=== PATIENT | female | born 1960 | race Caucasian/White ===

== ENCOUNTER 2017-09-13 18:01 | Emergency (ER) | payer MEDICARE ==
[2017-09-13] MEDS ORDERED: Phenergan 25 MG INJ IM ONE (18:23)
[2017-09-13] MEDS ORDERED: Hydromorphone 1 mg/ml Ampule IM ONE (18:23)
--- NOTE | 2017-09-13 18:32 | ERPHSYRPT ---
- History of Present Illness Time Seen by Provider: 09/13/17 18:14 Source: patient Exam Limitations: clinical condition Patient Subjective Stated Complaint: fell at 1100 today landing on left knee and left hip. is scheduled for left hip replacement next at [place]. pain and swelling to left knee. Triage Nursing Assessment: patient unable to bear weight on left knee. knee slightly swollen with severe tenderness. good pedal pulse. Physician History: PATIENT SCHEDULED FOR LEFT HIP REPLACEMENT NEXT WEEK FELL OVER HER DOG SUSTAINED INJURY TO HER LEFT KNEE AT 1100 TODAY,HAS PAIN WITH SWELLING, UNABLE TO BEAR WEIGHT ONTO LEFT LEG. DENIES ASSOCIATED HEAD, NECK, BACK OR HIP INJURY. Occurred: this morning Reason for Fall: tripped Injuries/Pain Location: lower extremity Loss of Consciousness: no loss of consciousness Quality: sharpness Severity of Pain-Max: moderate Severity of Pain-Current: moderate Modifying Factors: Improves With: movement Associated Symptoms (Fall): other (UNABLE TO BEAR WEIGHT) Allergies/Adverse Reactions: celecoxib [From Celebrex] Allergy (Verified 09/13/17 18:17) pregabalin [From Lyrica] Allergy (Verified 09/13/17 18:17) acetaminophen [From Vicodin] Adverse Reaction (Verified 09/13/17 18:17) hydrocodone [From Vicodin] Adverse Reaction (Verified 09/13/17 18:17) Home Medications: AMITRIPTYLINE HCL 50 mg Tab [AMITRIPTYLINE HCL 50 mg Tablet] 75 mg PO HS [History] Atorvastatin Calcium [Lipitor] 40 mg PO DAILY 09/13/17 [History] Citalopram Hydrobromide [Citalopram HBr] 40 mg PO DAILY 09/13/17 [History] Eluxadoline [Viberzi] 75 mg PO BID 09/13/17 [History] Ergocalciferol (Vitamin D2) [Vitamin D] 50,000 mg PO UD 09/13/17 [History] Folic Acid 1 mg [Folate 1 mg] 1 mg PO DAILY 09/13/17 [History] Furosemide 20 mg [Lasix 20 mg] 20 mg PO DAILY 09/13/17 [History] Gabapentin 100 mg PO TID 09/13/17 [History] Hydroxychloroquine Sulfate [Plaquenil] 200 mg PO BID 09/13/17 [History] Mirtazapine [Remeron] 15 mg PO HS 09/13/17 [History] Omeprazole 40 mg PO BID 09/13/17 [History] Trazodone HCl 50 mg [Desyrel 50 mg] 50 mg PO HS 09/13/17 [History] Hx Tetanus, Diphtheria Vaccination/Date Given: No Hx Influenza Vaccination/Date Given: Yes Hx Pneumococcal Vaccination/Date Given: No - Review of Systems Musculoskeletal: Injury, Joint Pain, Joint Swelling - Past Medical History Pertinent Past Medical History: Yes Neurological History: Peripheral Neuropathy Musculoskeletal History: Rheumatoid Arthritis GI Medical History: GERD, Irritable Bowel Psycho-Social History: Depression Female Reproductive Disorders: Abnormal Uterine Bleeding - Past Surgical History Past Surgical History: Yes Gastrointestinal: Appendectomy, Cholecystectomy Musculoskeletal: Orthopedic Surgery Female Surgical History: Hysterectomy Other Surgical History: sinus - Social History Smoking Status: Never smoker Exposure to second hand smoke: No Drug Use: none Patient Lives Alone: No - Nursing Vital Signs Nursing Vital Signs: Initial Vital Signs Temperature 97.9 F 09/13/17 18:03 Pulse Rate 84 09/13/17 18:03 Respiratory Rate 20 09/13/17 18:03 Blood Pressure 131/71 09/13/17 18:03 O2 Sat by Pulse Oximetry 98 09/13/17 18:03 Pain Scale Pain Intensity 8 - Physical Exam General Appearance: mild distress (, ) Extremity Exam: joint swelling (PATELLA MIDLINE WITH SUPRAPATELLA EFFUSION, TENDERNESS, SWELLING MEDIAL FEMORAL CONDYLE, NO JOINT LAXITY UPON VARUS/ VALGUS STRESS, UNABLE TO TEST ANTERIOR DRAW SIGN, POPLITEAL PULSE 2+), limited range of motion SpO2 Interpretation: normal SpO2: 98 Oxygen Delivery: Room Air - Radiology Exams Left Knee X-ray Interpretation: Interpreted by me (SUPRAPATELLA EFFUSION, NO FRACTURE OR DISLOCATION) Left Hip X-ray Interpretation: Interpreted by me, Negative, No Fracture (MODERATE DEGENERATIVE ARTHRITIS) Ordered Tests: Active Orders 24 hr Category Date Time Status HIP UNI (2V) INCL PEL IF DONE Stat Exams 09/13/17 18:32 Taken KNEE (3 VIEWS) Stat Exams 09/13/17 18:25 Taken Medication Summary Discontinued Medications Generic Name Dose Route Start Last Admin Trade Name Freq PRN Reason Stop Dose Admin Hydromorphone HCl 1 mg 09/13/17 18:23 09/13/17 19:01 Hydromorphone 1 Mg/Ml Ampule IM 09/13/17 18:24 1 mg STAT ONE Administration Hydromorphone HCl Confirm 09/13/17 18:40 Hydromorphone 1 Mg/Ml Ampule Administered 09/13/17 18:41 Dose 1 mg .ROUTE .STK-MED ONE Promethazine HCl 12.5 mg 09/13/17 18:23 09/13/17 19:02 Phenergan 25 Mg Inj IM 09/13/17 18:24 12.5 mg STAT ONE Administration Promethazine HCl Confirm 09/13/17 18:39 Phenergan 25 Mg Inj Administered 09/13/17 18:40 Dose 25 mg .ROUTE .STK-MED ONE - Progress Progress: improved Progress Note: 09/13/17 20:12 ADMINISTERED DILAUDID 1MG/PHENERGAN 12.5MG IM, UNABLE TO APPLY KNEE IMMOBILIZER DUE TO SMALL SIZE, 6'' LINDA BANDAGE INSTEAD, HAS CRUTCHES AT HOME. Counseled pt/family regarding: diagnosis, need for follow-up, rad results - Departure Time of Disposition: 20:18 Departure Disposition: Home Clinical Impression: CONTUSION/STRAIN LEFT KNEE Condition: Stable Critical Care Time: No Referrals: NIRANJAN MARTINEZ [Primary Care Provider] - Additional Instructions: AMBULATE USING WALKER AT HOME NONWEIGHT BEARING LEFT LEG. NORCO 10/325 EVERY 4 HOURS FOR PAIN NEEDED. APPLY ICE ABOVE AND BELOW KNEE EVERY 4 HOURS, 30 MINUTES FOR 48 HOURS. CONSULT YOUR ORTHOPEDIC SURGEON FOR FOLLOWUP. Prescriptions: Codeine Phosphate/APAP #3 [Tylenol #3 Tablet] 1 tab PO Q4HPRN PRN #15 tablet PRN Reason: Pain
[2017-09-13] MEDS ORDERED: Phenergan 25 MG INJ ONE (18:39)
[2017-09-13] MEDS ORDERED: Hydromorphone 1 mg/ml Ampule ONE (18:40)
[2017-09-13 20:25] VITALS: BP 133/85; PULSE 88; O2SAT 96
--- NOTE | 2017-09-14 08:47 | XRAY ---
Indication: Pain following fall. Comparison: None AP pelvis and 2 views of the left hip demonstrates osteopenia, partially visualized lower lumbar fusion surgery including left-sided spinal stimulator device, mild degenerative changes of the left hip/pubic symphysis. No other bony, articular, or soft tissue abnormalities.
--- NOTE | 2017-09-14 08:49 | XRAY ---
Indication: Pain following fall. Comparison: None 3 views of the left knee demonstrate osteopenia, moderate tricompartmental degenerative changes, and small nonspecific suprapatellar effusion. On the lateral view there is a vague 1.7 x 2.2 cm suprapatellar amorphic calcification presumed chronic either degenerative or old injury/inflammation. No other bony, articular, or soft tissue abnormalities.
== END 2017-09-13 20:25 | disposition home or self-care (01) ==
LOC: ED 18:01
DX: S80.02XA Contusion of left knee, initial encounter (principal); S83.92XA Sprain of unspecified site of left knee, initial encounter; W01.0XXA Fall on same level from slipping, tripping and stumbling without subsequent striking against object, initial encounter; Z79.899 Other long term (current) drug therapy; Z79.84 Long term (current) use of oral hypoglycemic drugs
CPT/HCPCS: 73502; 73562; 96372; 99283; J1170; J2550

== ENCOUNTER 2017-12-10 15:47 | Emergency (ER) | payer MEDICARE ==
[2017-12-10] MEDS ORDERED: Marcaine 0.5% SDV 10 ML IJ ONE (16:05)
[2017-12-10] MEDS ORDERED: Adacel Vial IM ONE ×2 (16:05→17:18)
[2017-12-10] MEDS ORDERED: Augmentin 875-125 Tablet PO ONE (16:06)
[2017-12-10] MEDS ORDERED: Sodium Chloride 0.9% 1000 ML 1,000 ML IV STA (16:07)
[2017-12-10] MEDS ORDERED: Marcaine 0.5% SDV 10 ML ONE (16:09)
--- NOTE | 2017-12-10 16:25 | ERPHSYRPT ---
- History of Present Illness Time Seen by Provider: 12/10/17 15:52 Source: patient Patient Subjective Stated Complaint: pt for a dog bite, pt was dog fight and a dog turned on pt and got bit to left hand and right hand . was bit by pit bull Triage Nursing Assessment: pt alert, nervous, resp labored, skin w/d/p. has 3cm laceration to left hand and punture brown to right hand, no bleedind at present time. Physician History: CC: dog bite Hx: 57 y/o patient of Dr Martinez. 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 She has punctures to the right hand. She has a gash to the left hand. No other injuries. No N/T/W. Unsure of last tetanus vaccine. The dog is reported to have had full rabies vaccines and to be in a good state of health. Occurred: just prior to arrival Extremities Pain Location: hand: bilateral Allergies/Adverse Reactions: celecoxib [From Celebrex] Allergy (Verified 12/10/17 16:01) pregabalin [From Lyrica] Allergy (Verified 12/10/17 16:01) acetaminophen [From Vicodin] Adverse Reaction (Verified 12/10/17 16:01) hydrocodone [From Vicodin] Adverse Reaction (Verified 12/10/17 16:01) Home Medications: AMITRIPTYLINE HCL 50 mg Tab [AMITRIPTYLINE HCL 50 mg Tablet] 75 mg PO HS [History] Atorvastatin Calcium [Lipitor] 40 mg PO DAILY 09/13/17 [History] Citalopram Hydrobromide [Citalopram HBr] 40 mg PO DAILY 09/13/17 [History] Eluxadoline [Viberzi] 75 mg PO BID 09/13/17 [History] Ergocalciferol (Vitamin D2) [Vitamin D] 50,000 mg PO UD 09/13/17 [History] Folic Acid 1 mg [Folate 1 mg] 1 mg PO DAILY 09/13/17 [History] Furosemide 20 mg [Lasix 20 mg] 20 mg PO DAILY 09/13/17 [History] Gabapentin 100 mg PO TID 09/13/17 [History] Hydroxychloroquine Sulfate [Plaquenil] 200 mg PO BID 09/13/17 [History] Mirtazapine [Remeron] 15 mg PO HS 09/13/17 [History] Omeprazole 40 mg PO BID 09/13/17 [History] Trazodone HCl 50 mg [Desyrel 50 mg] 50 mg PO HS 09/13/17 [History] Hx Tetanus, Diphtheria Vaccination/Date Given: No Hx Influenza Vaccination/Date Given: Yes Hx Pneumococcal Vaccination/Date Given: No Immunizations Up to Date: Yes - Review of Systems Constitutional: No Fever, No Chills Musculoskeletal: Injury Neurological: No Focal Weakness, No Parasthesia Psychological: Anxiety All Other Systems: Reviewed and Negative - Past Medical History Pertinent Past Medical History: Yes Neurological History: Migraines, Peripheral Neuropathy Cardiac History: Hypertension Respiratory History: No Pertinent History Endocrine Medical History: No Pertinent History Musculoskeletal History: Osteoarthritis, Osteoporosis, Rheumatoid Arthritis GI Medical History: GERD, Irritable Bowel Psycho-Social History: Depression Female Reproductive Disorders: Abnormal Uterine Bleeding - Past Surgical History Past Surgical History: Yes Gastrointestinal: Appendectomy, Cholecystectomy Musculoskeletal: Orthopedic Surgery Female Surgical History: Hysterectomy Other Surgical History: sinus,knee surg, back surg - Social History Smoking Status: Never smoker Exposure to second hand smoke: No Drug Use: none Patient Lives Alone: No - Female History Hx Last Menstrual Period: post - Nursing Vital Signs Nursing Vital Signs: Initial Vital Signs Temperature 99.4 F 12/10/17 15:53 Pulse Rate 118 H 12/10/17 15:53 Respiratory Rate 26 H 12/10/17 15:53 Blood Pressure 151/108 12/10/17 15:53 O2 Sat by Pulse Oximetry 97 12/10/17 15:53 Pain Scale Pain Intensity 10 - Physical Exam General Appearance: alert, other (upset on arrival) Eyes, Ears, Nose, Throat Exam: normal ENT inspection, moist mucous membranes Neck Exam: normal inspection, non-tender, supple Cardiovascular/Respiratory Exam: normal breath sounds, regular rate/rhythm Abdominal Exam: non-tender, soft Neuro/Tendon Exam: normal sensation (2 point intact left thumb), normal motor functions Mental Status Exam: alert, oriented x 3, cooperative Skin Exam: warm, dry, other (small punctures scattered right hand; large gash left thenar area. ROM intact. NO FB noted. Sensation and cap refill intact.) SpO2 Interpretation: normal SpO2: 97 Oxygen Delivery: Room Air Procedures - Laceration/Wound Repair left thenar hand Wound Location: Left, hand Wound Length (cm): 4 Wound's Depth, Shape: stellate, into subcut Wound Explored: moderately contaminated (dog hair) Irrigated: Yes (copious NS under pressure) Hibiclens Prep: Yes Anesthesia: local, 1% Lidocaine, marcaine 0.5 Volume Anesthetic (ccs): 5 Wound Repaired With: sutures Suture Size/Type: 4-0, prolene Number of Sutures: 6 Sterile Dressing Applied?: Yes - Course Nursing assessment & vital signs reviewed: Yes - Radiology Exams bilateral hand X-ray Interpretation: Teleradiologist Report, Negative Ordered Tests: Active Orders 24 hr Category Date Time Status Prepare for Sutures STAT Care 12/10/17 16:05 Active Sutures STAT Care 12/10/17 16:06 Active Wound Care STAT Care 12/10/17 16:05 Active HAND (MINIMUM 3 VIEWS) Stat Exams 12/10/17 16:06 Completed HAND (MINIMUM 3 VIEWS) Stat Exams 12/10/17 16:25 Completed Medication Summary Discontinued Medications Generic Name Dose Route Start Last Admin Trade Name Freq PRN Reason Stop Dose Admin Amoxicillin/Clavulanate Potassium 875 mg 12/10/17 16:06 Augmentin 875-125 Tablet PO 12/10/17 16:07 STAT ONE Bupivacaine HCl 5 ml 12/10/17 16:05 Marcaine 0.5% Sdv 10 Ml IJ 12/10/17 16:06 STAT ONE Bupivacaine HCl Confirm 12/10/17 16:09 Marcaine 0.5% Sdv 10 Ml Administered 12/10/17 16:10 Dose 10 ml .ROUTE .STK-MED ONE Diphtheria/Tetanus/Acell Pertussis 0.5 ml 12/10/17 16:05 Adacel Vial IM 12/10/17 16:06 .ONCE ONE Sodium Chloride 1,000 mls @ 999 mls/hr 12/10/17 16:07 Sodium Chloride 0.9% 1000 Ml IV 12/10/17 17:07 .Q1H1M STA Sodium Chloride Confirm 12/10/17 16:26 Sodium Chloride 0.9% 1000 Ml Administered 12/10/17 16:27 Dose 1,000 mls @ ud .ROUTE .STK-MED ONE Lidocaine HCl Confirm 12/10/17 16:59 Xylocaine 1% Hcl 20 Ml Mdv Administered 12/10/17 17:00 Dose 5 ml .ROUTE .STK-MED ONE - Progress Progress Note: 12/10/17 17:10 Discussed risk of infection associated with dog bite. The left thenar laceration needed repair and she understands. Copious irrigation used. Augmentin given. Counseled pt/family regarding: diagnosis, need for follow-up, rad results - Departure Time of Disposition: 17:11 Departure Disposition: Home Clinical Impression: dog bite both hands, Laceration of left hand Condition: Stable Critical Care Time: No Referrals: NIRANJAN MARTINEZ [Primary Care Provider] - Instructions: Animal Bites (DC) Additional Instructions: LACERATION CARE 1. Do not use peroxide, merthiolate, alcohol, or betadine. 2. Keep wound clean and dry. 3. Change dressing if it becomes wet or soiled. 4. If you must work, wear protective covering. 5. You may return to the emergency department or see your family physician for suture removal. 6. See your family physician or return to the emergency department for any of the following signs or symptoms: A. Redness B. Swelling C. Discolored drainage D. Red streaks E. Elevated temperature F. Other signs of infection Dog should be quarantined for 10 days. Ibuprofen as directed for discomfort. Suture removal in 10 days. Report any sign of infection right away. Prescriptions: Amox Tr/Potass Clav. 875 mg [Augmentin 875-125 Tablet] 875 mg PO BID #14 tablet
[2017-12-10] MEDS ORDERED: Sodium Chloride 0.9% 1000 ML 1,000 ML ONE (16:26)
--- NOTE | 2017-12-10 16:31 | XRAY ---
Indication: Dog bite/laceration. Comparison: July 26, 2017. 3 views of the right hand demonstrate stable mild degenerative changes of all IP joints and moderate degenerative changes of the first metacarpal multangular articulation. No new/acute bony, articular, or soft tissue abnormalities.
--- NOTE | 2017-12-10 16:33 | XRAY ---
Indication: Dog bite/laceration. Comparison: July 26, 2017. 3 views of the left hand demonstrates new thenar eminence soft tissue swelling/laceration with stable mild degenerative changes of all IP joints and moderate degenerative changes of the first metacarpal multangular articulation. No other bony, articular, or soft tissue abnormalities.
[2017-12-10] MEDS ORDERED: XYLOCAINE 1% HCL 20 ML MDV ONE (16:59)
[2017-12-10] MEDS ORDERED: Augmentin 875-125 Tablet ONE (17:17)
[2017-12-10 17:54] VITALS: BP 150/80; PULSE 80; O2SAT 98
== END 2017-12-10 17:54 | disposition home or self-care (01) ==
LOC: ED 15:47
PROC: 0HQGXZZ Repair Left Hand Skin, External Approach (ICD-10-PCS; principal; 2017-12-10)
DX: S61.452A Open bite of left hand, initial encounter (principal); S61.412A Laceration without foreign body of left hand, initial encounter; S61.451A Open bite of right hand, initial encounter; W54.0XXA Bitten by dog, initial encounter
CPT/HCPCS: 12002; 73130; 90471; 90715; 96360; 99283; 99284; A9270-GY

== ENCOUNTER 2019-05-04 10:21 | Observation (INO) | payer MEDICARE ==
[2019-05-04] MEDS ORDERED: Sodium Chloride 0.9% 1000 ML 1,000 ML IV STA (11:22)
[2019-05-04] MEDS ORDERED: Zofran 4 MG/2 ML VIAL IV ONE (11:22)
[2019-05-04] MEDS ORDERED: DILAUDID 2 MG INJECTION IV ONE (11:25)
--- NOTE | 2019-05-04 11:26 | ERPHSYRPT ---
- History of Present Illness Time Seen by Provider: 05/04/19 11:10 Historian: patient Exam Limitations: clinical condition Patient Subjective Stated Complaint: pt here for n/v/d for 3 days. and weakness , no fever, she has not eat today. she was able to take meds today, Triage Nursing Assessment: pt alert, resp easy, skin w/d/p. walked to room. abd soft, no edema noted. Physician History: PATIENT WITH A HISTORY OF CHRONIC DIARRHEA, COMPLAINS OF FREQUENT EPISODES OF EMESIS AND PROFUSE DIARRHEA X 3 DAYS ASSOCIATED WITH WEAKNESS AND CRAMPY ABDOMINAL PAINS. DENIES FEVER, CHILLS URINARY SYMPTOMS. Timing/Duration: day(s) Activities at Onset: none Quality: cramping Abdominal Pain Onset Location: generalized abdomen Pain Radiation: no radiation Severity of Pain-Max: moderate Severity of Pain-Current: moderate Modifying Factors: Improves With: vomiting Associated Symptoms: nausea, vomiting, weakness Previous symptoms: other (HISTORY OF CHRONIC DIARRHEA) Allergies/Adverse Reactions: celecoxib [From Celebrex] Allergy (Verified 05/04/19 10:54) pregabalin [From Lyrica] Allergy (Verified 05/04/19 10:54) vancomycin Allergy (Verified 05/04/19 10:54) acetaminophen [From Vicodin] Adverse Reaction (Verified 05/04/19 10:54) hydrocodone [From Vicodin] Adverse Reaction (Verified 05/04/19 10:54) Home Medications: Atorvastatin Calcium [Lipitor] 40 mg PO DAILY 09/13/17 [History] Eluxadoline [Viberzi] 75 mg PO BID 09/13/17 [History] Ergocalciferol (Vitamin D2) [Vitamin D] 50,000 mg PO UD 09/13/17 [History] Folic Acid 1 mg [Folate 1 mg] 1 mg PO DAILY 09/13/17 [History] Furosemide 20 mg [Lasix 20 mg] 20 mg PO DAILY 09/13/17 [History] Gabapentin 600 mg PO TID 09/13/17 [History] Hydroxychloroquine Sulfate [Plaquenil] 200 mg PO BID 09/13/17 [History] Mirtazapine [Remeron] 15 mg PO HS 09/13/17 [History] Trazodone HCl 50 mg [Desyrel 50 mg] 50 mg PO HS 09/13/17 [History] Alprazolam [Xanax] 0.5 mg DAILY 05/04/19 [History] Hx Tetanus, Diphtheria Vaccination/Date Given: No Hx Influenza Vaccination/Date Given: Yes Hx Pneumococcal Vaccination/Date Given: No Immunizations Up to Date: Yes - Past Medical History Pertinent Past Medical History: Yes Neurological History: Migraines, Peripheral Neuropathy Cardiac History: High Cholesterol, Hypertension Respiratory History: No Pertinent History Endocrine Medical History: No Pertinent History Musculoskeletal History: Osteoarthritis, Osteoporosis, Rheumatoid Arthritis GI Medical History: GERD, Irritable Bowel Psycho-Social History: Depression Female Reproductive Disorders: Abnormal Uterine Bleeding - Past Surgical History Past Surgical History: Yes Gastrointestinal: Appendectomy, Cholecystectomy Musculoskeletal: Orthopedic Surgery Female Surgical History: Hysterectomy Other Surgical History: sinus,knee surg, back surg - Social History Smoking Status: Never smoker Exposure to second hand smoke: No Drug Use: none Patient Lives Alone: No - Female History Hx Last Menstrual Period: post Hx Now: No - Nursing Vital Signs Nursing Vital Signs: Initial Vital Signs Temperature 98.0 F 05/04/19 10:49 Pulse Rate 87 05/04/19 10:49 Respiratory Rate 16 05/04/19 10:49 Blood Pressure 177/83 05/04/19 10:49 O2 Sat by Pulse Oximetry 99 05/04/19 10:49 Pain Scale Pain Intensity 4 - Physical Exam General Appearance: mild distress Eye Exam: PERRL/EOMI, eyes nml inspection Ears, Nose, Throat Exam: normal ENT inspection, pharynx normal, moist mucous membranes Neck Exam: normal inspection Respiratory Exam: normal breath sounds, lungs clear, No respiratory distress Cardiovascular Exam: regular rate/rhythm, normal heart sounds Gastrointestinal/Abdomen Exam: soft, normal bowel sounds, tenderness ( PERIUMBILICAL AND LLQ) Back Exam: normal inspection, normal range of motion Extremity Exam: normal inspection, normal range of motion Skin Exam: normal color SpO2 Interpretation: normal SpO2: 99 O2 Delivery: Room Air - CT Exams Abdomen/Pelvis CT Interpretation: Tele-radiologist Report (NO OBSTRUCTION, MUCOSAL THICKENING, SMALL AMOUNT OF NONSPECIFIC FREE FLUID IN THE DEPENDENT PORTION OF THE PELVIS) Ordered Tests: Active Orders 24 hr Category Date Time Status cath [Cath for Specimen-Straight] STAT Care 05/04/19 14:23 Active ABDOMEN AND PELVIS W CONTRAST [CT] Stat Exams 05/04/19 12:37 Taken AMYLASE Stat Lab 05/04/19 11:34 Completed CBC W DIFF Stat Lab 05/04/19 11:34 Completed CMP Stat Lab 05/04/19 11:34 Completed LIPASE Stat Lab 05/04/19 11:34 Completed Lactic Acid Stat Lab 05/04/19 11:22 Completed UA W/RFX UR CULTURE Stat Lab 05/04/19 11:22 Ordered Medication Summary Discontinued Medications Generic Name Dose Route Start Last Admin Trade Name Haily PRN Reason Stop Dose Admin Famotidine Confirm 05/04/19 13:49 Pepcid 20 Mg Vial Administered 05/04/19 13:50 Dose 20 mg IV .STK-MED ONE Hydromorphone HCl 1 mg 05/04/19 11:25 05/04/19 13:25 Dilaudid 2 Mg Injection IV 05/04/19 11:26 1 mg STAT ONE Administration Hydromorphone HCl Confirm 05/04/19 13:13 Hydromorphone 1 Mg/Ml Ampule Administered 05/04/19 13:14 Dose 1 mg .ROUTE .STK-MED ONE Sodium Chloride 1,000 mls @ 999 mls/hr 05/04/19 11:22 05/04/19 13:16 Sodium Chloride 0.9% 1000 Ml IV 05/04/19 12:22 999 mls/hr .Q1H1M STA Administration Sodium Chloride Confirm 05/04/19 13:13 Sodium Chloride 0.9% 1000 Ml Administered 05/04/19 13:14 Dose 1,000 mls @ ud .ROUTE .STK-MED ONE Ondansetron HCl 4 mg 05/04/19 11:22 05/04/19 13:17 Zofran 4 Mg/2 Ml Vial IV 05/04/19 11:23 4 mg STAT ONE Administration Ondansetron HCl Confirm 05/04/19 13:13 Zofran 4 Mg/2 Ml Vial Administered 05/04/19 13:14 Dose 4 mg .ROUTE .STK-MED ONE Pantoprazole Sodium 40 mg 05/04/19 13:15 05/04/19 13:50 Protonix 40 Mg Iv IV 05/04/19 13:16 40 mg STAT ONE Administration Lab/Rad Data: Laboratory Result Diagrams 05/04/19 11:34 05/04/19 11:34 Laboratory Results 05/04/19 05/04/19 05/04/19 Range/Units 11:34 11:34 11:22 WBC 10.0 (4.0-10.5) K/mm3 RBC 5.03 (4.1-5.4) M/mm3 Hgb 15.5 (12.0-16.0) gm/dl Hct 44.9 (35-47) % MCV 89.3 (78-100) fl MCH 30.8 (26-32) pg MCHC 34.5 (32-36) g/dl RDW 12.9 (11.5-14.0) % Plt Count 178 (150-450) K/mm3 MPV 10.6 H (6-9.5) fl Gran % 82.9 H (36.0-66.0) % Eos # (Auto) 0.02 (0-0.5) Absolute Lymphs (auto) 1.12 (1.0-4.6) Absolute Monos (auto) 0.56 (0.0-1.3) Lymphocytes % 11.2 L (24.0-44.0) % Monocytes % 5.6 (0.0-12.0) % Eosinophils % 0.2 (0.00-5.0) % Basophils % 0.1 (0.0-0.4) % Absolute Granulocytes 8.26 H (1.4-6.9) Basophils # 0.01 (0-0.4) Sodium 142 (137-145) mmol/L Potassium 3.9 (3.5-5.1) mmol/L Chloride 106 (98-107) mmol/L Carbon Dioxide 23 (22-30) mmol/L Anion Gap 16.5 H (5-15) MEQ/L BUN 9 (7-17) mg/dL Creatinine 0.57 (0.52-1.04) mg/dL Estimated GFR > 60.0 ML/MIN Glucose 92 (74-106) mg/dL Lactic Acid 1.5 (0.4-2.0) Calcium 11.3 H (8.4-10.2) mg/dL Total Bilirubin 1.20 (0.2-1.3) mg/dL AST 39 H (14-36) U/L ALT 34 (0-35) U/L Alkaline Phosphatase 112 (38-126) U/L Serum Total Protein 8.5 H (6.3-8.2) g/dL Albumin 5.0 (3.5-5.0) g/dL Amylase 55 (30-110) U/L Lipase 49 (23-300) U/L - Progress Progress Note: 05/04/19 14:38 IV NORMAL SALINE 1000ML/HR, ZOFRAN 4MG, DILAUDID 1MG IV Discussed with Dr.: Other (DISCUSSED WITH DR MARIA AT 1515 FOR OBSERVATION) - Departure Departure Disposition: Observation Clinical Impression: INTRACTABLE EMESIS/DIARRHEA, DEHYDRATION Condition: Stable Critical Care Time: No Referrals: NIRANJAN MARTINEZ [Primary Care Provider] -
[2019-05-04 11:36] LABS: BASOPHIL % 0.1 % (0.0-0.4); Basophil (Absolute #) 0.01 (0-0.4); Eosinophil % 0.2 % (0.00-5.0); Eosinophil (Absolute #) 0.02 (0-0.5); Granulocyte Absolute (ANC) 8.26 (1.4-6.9); Granulocytes % 82.9 % (36.0-66.0); Hematocrit 44.9 % (35-47); Hemoglobin 15.5 gm/dl (12.0-16.0); Lymphocyte (Absolute #) 1.12 (1.0-4.6); Lymphocytes % 11.2 % (24.0-44.0); Mean Cell Volume 89.3 fl (78-100); Mean Corpuscular Hemoglobin 30.8 pg (26-32); Mean Corpuscular Hgb Concent. 34.5 g/dl (32-36); Mean Platelet Volume 10.6 fl (6-9.5); Monocyte (Absolute #) 0.56 (0.0-1.3); Monocytes % 5.6 % (0.0-12.0); Platelet Count 178 K/mm3 (150-450); Red Blood Count 5.03 M/mm3 (4.1-5.4); Red Cell Distribution Width 12.9 % (11.5-14.0)
[2019-05-04 11:46] LABS: ALKALINE PHOSPHATASE 112 U/L (38-126); AMYLASE 55 U/L (30-110); ANION GAP 16.5 MEQ/L (5-15); BLOOD UREA NITROGEN 9 mg/dL (7-17); CHLORIDE 106 mmol/L (98-107); Calcium 11.3 mg/dL (8.4-10.2); Carbon Dioxide 23 mmol/L (22-30); Creatinine 1 0.57 mg/dL (0.52-1.04); Glucose 92 mg/dL (74-106); Potassium 3.9 mmol/L (3.5-5.1); SGOT/AST 39 U/L (14-36); SGPT/ALT 34 U/L (0-35); SODIUM 142 mmol/L (137-145); Total Protein 8.5 g/dL (6.3-8.2)
[2019-05-04] MEDS ORDERED: Hydromorphone 1 mg/ml Ampule ONE (13:13)
[2019-05-04] MEDS ORDERED: Zofran 4 MG/2 ML VIAL ONE (13:13)
[2019-05-04] MEDS ORDERED: Sodium Chloride 0.9% 1000 ML 1,000 ML ONE (13:13)
[2019-05-04] MEDS ORDERED: PROTONIX 40 MG IV IV ONE (13:15)
[2019-05-04] MEDS ORDERED: Pepcid 20 MG VIAL IV ONE (13:49)
[2019-05-04 14:47] LABS: Appearance CLEAR (CLEAR); Bacteria RARE /HPF (NEGATIVE); Bilirubin NEGATIVE (NEGATIVE); Blood NEGATIVE Ery/ul (0-5); Glucose NEGATIVE (NEGATIVE); Ketones NEGATIVE (NEGATIVE); Leukocyte Esterase NEGATIVE (NEGATIVE); Mucus SLIGHT /HPF (NEGATIVE); Nitrite NEGATIVE (NEGATIVE); Protein,Urine Dip NEGATIVE (Negative); Specific Gravity >1.060 (1.005-1.025); Urobilinogen NEGATIVE mg/dL (0-1)
[2019-05-04] MEDS: MORPHINE SULFATE 4 MG INJ IV PRN (17:41)
[2019-05-04] MEDS: Zofran 4 MG/2 ML VIAL IV PRN (17:41)
--- NOTE | 2019-05-04 18:00 | PCM.HP ---
History of Present Illness - Chief Complaint Chief Complaint: Nausea, Vomiting, Diarrhea History of Present Illness: is a 59 year old female pt of Dr. Romero/Dr. Crystal (lexi Sheryl Chiang [facility]) with PMHx IBS with diarrhea, GERD, depression, OA, RA, and hyperlipidemia who was admitted through the ER with diarrhea, abd pain, and dehydration. She has chronic diarrhea and sees Donna Fay, but she started having diarrhea, abd pain and chills since 1930 yesterday. By 10 am she had taken 13 showers. No blood in the stool (it's bright yellow). She has lost control of the bowels since the stool is liquid. No objective fevers. C/o abd pain which is epigastric and infraumbilical. Nothing to eat x 4d aside from a banana yesterday. WBC nl although there is some left shift. CT abd/pelvis with contrast negative for acute changes (small amt nonspecific free fluid in dependent portion of pelvis) - reading from virtual radiology. Notably, she and a family member had E. coli diarrhea about 6 weeks ago. - Review of Systems Constitutional: Fatigue (very tired x 2 wks), Weight Loss (37 lb since Nov 2018) Abdominal/Gastrointestinal: Appetite Changes Genitourinary Symptoms: Urgency (since renal stone 4-6 wk ago, urinating small amt, has urge but dribbles, but denies frequency.) Neurological: Dizziness (lightheaded), Headache Psychological: Depression, No Suicidal Ideations, No Homicidal Ideations Medications & Allergies Home Medications: Home Medication List Atorvastatin Calcium [Lipitor] 40 mg PO HS 09/13/17 [History Confirmed 05/04/19] Ergocalciferol (Vitamin D2) [Vitamin D] 50,000 mg PO UD 09/13/17 [History Confirmed 05/04/19] Furosemide 20 mg [Lasix 20 mg] 20 mg PO DAILY PRN PRN 09/13/17 [History Confirmed 05/04/19] Gabapentin 600 mg PO QID 09/13/17 [History Confirmed 05/04/19] Hydroxychloroquine Sulfate [Plaquenil] 200 mg PO BID 09/13/17 [History Confirmed 05/04/19] Trazodone HCl 50 mg [Desyrel 50 mg] 50 mg PO HS 09/13/17 [History Confirmed 05/04/19] Alprazolam [Xanax] 0.5 mg HS 05/04/19 [History Confirmed 05/04/19] Colestipol HCl [Colestid] 1 gm PO BID 05/04/19 [History Confirmed 05/04/19] Fluoxetine HCl 40 mg PO BID 05/04/19 [History Confirmed 05/04/19] Infliximab-Dyyb [Inflectra] 1 dose IV INFUS UD 05/04/19 [History Confirmed 05/04] Morphine Sulfate 15 mg PO 5XD 05/04/19 [History Confirmed 05/04/19] Multivitamin,Therapeutic [Thera-Tabs] 1 each PO DAILY 05/04/19 [History Confirmed 05/04/19] PANTOPRAZOLE 40 mg Tablet [Protonix 40MG Tablet] 40 mg PO DAILY 05/04/19 [ History Confirmed 05/04/19] Ranitidine HCl 150 mg PO BID 05/04/19 [History Confirmed 05/04/19] Rizatriptan Benzoate [Rizatriptan] 1 tab PO UD 05/04/19 [History Confirmed 05/04] Allergies/Adverse Reactions: Allergies Allergy/AdvReac Type Severity Reaction Status Date / Time celecoxib [From Celebrex] Allergy Verified 05/04/19 10:54 pregabalin [From Lyrica] Allergy Verified 05/04/19 10:54 vancomycin Allergy Verified 05/04/19 10:54 acetaminophen [From Vicodin] AdvReac Verified 05/04/19 10:54 hydrocodone [From Vicodin] AdvReac Verified 05/04/19 10:54 - Past Medical History Past Medical History: Yes Neurological History: Migraines, Peripheral Neuropathy Cardiac History: High Cholesterol Respiratory History: No Pertinent History Endocrine Medical History: No Pertinent History Musculoskelatal History: Osteoarthritis, Osteoporosis, Rheumatoid Arthritis GI Medical History: GERD, Irritable Bowel Pyscho-Social History: Depression Reproductive Disorders: Abnormal Uterine Bleeding - Female History Hx Last Menstrual Period: post Are you now?: No - Past Surgical History Past Surgical History: Yes GI Surgical History: Appendectomy, Cholecystectomy Musculskeletal Surgical Hx: Orthopedic Surgery Female Surgical History: Hysterectomy Other Surgical History: sinus, bilateral knee replacements, back surg, neck surg - Social History Smoking Status: Never smoker Exposure to second hand smoke: No Alcohol: None Drug Use: none - Physical Exam Vital Signs: Vital Signs - 24 hr Temp Pulse Resp BP Pulse Ox 05/04/19 15:28 97.5 F 72 18 137/67 97 05/04/19 15:11 97.5 F 72 18 137/67 97 05/04/19 14:40 99 05/04/19 13:30 82 16 155/103 95 05/04/19 13:11 97.5 F 72 18 137/67 97 05/04/19 11:25 82 16 166/78 96 05/04/19 10:49 98.0 F 87 16 177/83 99 General Appearance: mild distress, alert Neurologic Exam: oriented x 3, cooperative Eye Exam: eyes nml inspection Ears, Nose, Throat Exam: moist mucous membranes Neck Exam: normal inspection, non-tender, No lymphadenopathy Respiratory Exam: normal breath sounds, lungs clear, No crackles/rales, No rhonchi, No wheezing Cardiovascular Exam: regular rate/rhythm, normal heart sounds, No murmur Gastrointestinal/Abdomen Exam: soft, normal bowel sounds, tenderness ( epigastrum and suprapubic), No distention, No mass, No guarding, No rebound Back Exam: normal inspection, No CVA tenderness Extremity Exam: normal inspection, No pedal edema, No swelling Skin Exam: normal color, warm, dry, No rash Results - Labs Lab/Micro Results: Lab Results-Last 24 Hours 05/04/19 05/04/19 05/04/19 Range/Units 11:22 11:22 11:34 WBC 10.0 (4.0-10.5) K/mm3 RBC 5.03 (4.1-5.4) M/mm3 Hgb 15.5 (12.0-16.0) gm/dl Hct 44.9 (35-47) % MCV 89.3 (78-100) fl MCH 30.8 (26-32) pg MCHC 34.5 (32-36) g/dl RDW 12.9 (11.5-14.0) % Plt Count 178 (150-450) K/mm3 MPV 10.6 H (6-9.5) fl Gran % 82.9 H (36.0-66.0) % Eos # (Auto) 0.02 (0-0.5) Absolute Lymphs (auto) 1.12 (1.0-4.6) Absolute Monos (auto) 0.56 (0.0-1.3) Lymphocytes % 11.2 L (24.0-44.0) % Monocytes % 5.6 (0.0-12.0) % Eosinophils % 0.2 (0.00-5.0) % Basophils % 0.1 (0.0-0.4) % Absolute Granulocytes 8.26 H (1.4-6.9) Basophils # 0.01 (0-0.4) Sodium (137-145) mmol/L Potassium (3.5-5.1) mmol/L Chloride (98-107) mmol/L Carbon Dioxide (22-30) mmol/L Anion Gap (5-15) MEQ/L BUN (7-17) mg/dL Creatinine (0.52-1.04) mg/dL Estimated GFR ML/MIN Glucose (74-106) mg/dL Lactic Acid 1.5 (0.4-2.0) Calcium (8.4-10.2) mg/dL Total Bilirubin (0.2-1.3) mg/dL AST (14-36) U/L ALT (0-35) U/L Alkaline Phosphatase (38-126) U/L Serum Total Protein (6.3-8.2) g/dL Albumin (3.5-5.0) g/dL Amylase (30-110) U/L Lipase (23-300) U/L Urine Color YELLOW (YELLOW) Urine Appearance CLEAR (CLEAR) Urine pH 5.0 (5-6) Ur Specific [place] >1.060 (1.005-1.025) Urine Protein NEGATIVE (Negative) Urine Ketones NEGATIVE (NEGATIVE) Urine Blood NEGATIVE (0-5) Nasim/ul Urine Nitrite NEGATIVE (NEGATIVE) Urine Bilirubin NEGATIVE (NEGATIVE) Urine Urobilinogen NEGATIVE (0-1) mg/dL Ur Leukocyte Esterase NEGATIVE (NEGATIVE) Urine WBC (Auto) NONE (0-5) /HPF Urine RBC (Auto) 3-5 (0-2) /HPF U Epithel Cells (Auto) NONE (FEW) /HPF Urine Bacteria (Auto) RARE (NEGATIVE) /HPF Urine Mucus (Auto) SLIGHT (NEGATIVE) /HPF Urine Culture Reflexed NO (NO) Urine Glucose NEGATIVE (NEGATIVE) mg/dL 05/04/19 Range/Units 11:34 WBC (4.0-10.5) K/mm3 RBC (4.1-5.4) M/mm3 Hgb (12.0-16.0) gm/dl Hct (35-47) % MCV (78-100) fl MCH (26-32) pg MCHC (32-36) g/dl RDW (11.5-14.0) % Plt Count (150-450) K/mm3 MPV (6-9.5) fl Gran % (36.0-66.0) % Eos # (Auto) (0-0.5) Absolute Lymphs (auto) (1.0-4.6) Absolute Monos (auto) (0.0-1.3) Lymphocytes % (24.0-44.0) % Monocytes % (0.0-12.0) % Eosinophils % (0.00-5.0) % Basophils % (0.0-0.4) % Absolute Granulocytes (1.4-6.9) Basophils # (0-0.4) Sodium 142 (137-145) mmol/L Potassium 3.9 (3.5-5.1) mmol/L Chloride 106 (98-107) mmol/L Carbon Dioxide 23 (22-30) mmol/L Anion Gap 16.5 H (5-15) MEQ/L BUN 9 (7-17) mg/dL Creatinine 0.57 (0.52-1.04) mg/dL Estimated GFR > 60.0 ML/MIN Glucose 92 (74-106) mg/dL Lactic Acid (0.4-2.0) Calcium 11.3 H (8.4-10.2) mg/dL Total Bilirubin 1.20 (0.2-1.3) mg/dL AST 39 H (14-36) U/L ALT 34 (0-35) U/L Alkaline Phosphatase 112 (38-126) U/L Serum Total Protein 8.5 H (6.3-8.2) g/dL Albumin 5.0 (3.5-5.0) g/dL Amylase 55 (30-110) U/L Lipase 49 (23-300) U/L Urine Color (YELLOW) Urine Appearance (CLEAR) Urine pH (5-6) Ur Specific [place] (1.005-1.025) Urine Protein (Negative) Urine Ketones (NEGATIVE) Urine Blood (0-5) Nasim/ul Urine Nitrite (NEGATIVE) Urine Bilirubin (NEGATIVE) Urine Urobilinogen (0-1) mg/dL Ur Leukocyte Esterase (NEGATIVE) Urine WBC (Auto) (0-5) /HPF Urine RBC (Auto) (0-2) /HPF U Epithel Cells (Auto) (FEW) /HPF Urine Bacteria (Auto) (NEGATIVE) /HPF Urine Mucus (Auto) (NEGATIVE) /HPF Urine Culture Reflexed (NO) Urine Glucose (NEGATIVE) mg/dL - Radiology Impressions Radiology Exams & Impressions: Radiology Procedures Category Date Time Status ABDOMEN AND PELVIS W CONTRAST [CT] Stat Exams 05/04/19 12:37 Taken Assessment/Plan (1) Diarrhea Current Visit: Yes Status: Acute Qualifiers: Diarrhea type: unspecified type Qualified Code(s): R19.7 - Diarrhea, unspecified Assessment & Plan: I changed the lab orders from stool O&P and culture to GI panel. She is on IV fluids. Not on antibiotics currently, although if diarrhea does not slow by morning would start her on levaquin and flagyl. Code(s): R19.7 - DIARRHEA, UNSPECIFIED (2) Dehydration Current Visit: Yes Status: Acute Assessment & Plan: on IV fluids. Code(s): E86.0 - DEHYDRATION (3) Fatigue Current Visit: Yes Status: Acute Qualifiers: Fatigue type: chronic, unspecified Qualified Code(s): R53.82 - Chronic fatigue, unspecified Code(s): R53.83 - OTHER FATIGUE
[2019-05-04] MEDS ORDERED: MSIR 15 MG PO PRN (18:21)
[2019-05-04] MEDS ORDERED: MSIR 15 MG PO SCH (19:00)
--- NOTE | 2019-05-04 21:15 | XRAY ---
Indication: Nausea, vomiting, and diarrhea. Dehydration. Multiple contiguous axial images obtained through the abdomen and pelvis using 80 cc Isovue 370 contrast only. Comparison: None There are multilevel thoracolumbar posterior spinal hardware and left lower back spinal stimulator device producing beam artifact. Lung bases are clear. Heart is not enlarged. Small hiatal hernia. Noncontrasted stomach and bowel loops appear nonobstructed. Patient reports cholecystectomy, appendectomy, and hysterectomy. Small nonspecific pelvic free fluid. No walled off fluid collection or free air. Mild fatty liver without focal solid/cystic mass. Spleen is borderline enlarged measuring 12.4 cm in greatest axial dimension with calcified granulomas. Remaining liver, pancreas, spleen, adrenal glands, kidneys, ureters, and bladder appear unremarkable. Minimal aortic calcifications. No AAA or pathological retroperitoneal lymphadenopathy. Osseous structures intact with mild dextroscoliosis centered at T9. Multilevel lumbar laminectomy. No ventral or inguinal hernias. Impression: 1. Small nonspecific pelvic free fluid. 2. Incidental small hiatal hernia, fatty liver, splenomegaly, multilevel thoracolumbar posterior fusion, lumbar laminectomy, and scoliosis. Comment: Preliminary interpretation was made by [facility]. No critical discrepancy. CTDI 23.63
[2019-05-04] MEDS ORDERED: Pepcid 20 MG VIAL IV SCH (22:00)
[2019-05-04] MEDS: NEURONTIN 300 MG PO SCH (23:05)
[2019-05-04] MEDS: DESYREL 50 MG PO SCH (23:07)
[2019-05-04] MEDS: Prozac 20 MG PO SCH (23:09)
[2019-05-04] MEDS: Pepcid 20 MG PO SCH (23:09)
[2019-05-04] MEDS: xanAX 0.5 MG PO SCH (23:12)
[2019-05-04] MEDS: REMERON 30 MG PO SCH (23:12)
[2019-05-04] MEDS: Sodium Chloride 0.9% 1000 ML 1,000 ML IV SCH (23:26)
[2019-05-05 01:20] LABS: Campylobacter NEGATIVE (NEGATIVE)
[2019-05-05 01:23] LABS: Adenovirus F 40/41 NEGATIVE (NEGATIVE); Astrovirus NEGATIVE (NEGATIVE); C. Difficile Organism POSITIVE (NEGATIVE); Cyclospora cayentanensis NEGATIVE (NEGATIVE); Entamoeaba histolytica NEGATIVE (NEGATIVE); Enteroaggregative E.coli NEGATIVE (NEGATIVE); Giardia lamblia NEGATIVE (NEGATIVE); Plesiomonas shigelloides NEGATIVE (NEGATIVE); Rotavirus A NEGATIVE (NEGATIVE); Salmonella NEGATIVE (NEGATIVE); Sapovirus NEGATIVE (NEGATIVE); Shiga-like toxin prod.E.coli NEGATIVE (NEGATIVE); Vibrio NEGATIVE (NEGATIVE)
[2019-05-05 01:25] LABS: 027 TOX PROD PRESUMPTIVE NEGATIVE (NEGATIVE); TOXIGENIC C. DIFF ORG POSITIVE (NEGATIVE)
[2019-05-05] MEDS ORDERED: FLAGYL 500 MG IVPB 500 MG/100 ML BAG IV SCH (06:00)
[2019-05-05] MEDS: Sodium Chloride 0.9% 1000 ML 1,000 ML IV SCH ×3 (06:07→16:45)
[2019-05-05 06:14] LABS: Basophil (Absolute #) 0 (0-0.4); Eosinophil % 0.5 % (0.00-5.0); Eosinophil (Absolute #) 0.03 (0-0.5); Granulocytes % 70.1 % (36.0-66.0); Hematocrit 36.9 % (35-47); Hemoglobin 12.4 gm/dl (12.0-16.0); Lymphocyte (Absolute #) 1.41 (1.0-4.6); Mean Cell Volume 92.5 fl (78-100); Mean Corpuscular Hgb Concent. 33.6 g/dl (32-36); Mean Platelet Volume 10.4 fl (6-9.5); Monocyte (Absolute #) 0.39 (0.0-1.3); Monocytes % 6.4 % (0.0-12.0); Platelet Count 129 K/mm3 (150-450); Red Blood Count 3.99 M/mm3 (4.1-5.4); Red Cell Distribution Width 12.6 % (11.5-14.0); White Blood Count 6.1 K/mm3 (4.0-10.5)
[2019-05-05 06:33] LABS: ALBUMIN 3.8 g/dL (3.5-5.0); ALKALINE PHOSPHATASE 74 U/L (38-126); ANION GAP 12.9 MEQ/L (5-15); BLOOD UREA NITROGEN 13 mg/dL (7-17); CHLORIDE 108 mmol/L (98-107); Carbon Dioxide 23 mmol/L (22-30); Creatinine 1 0.55 mg/dL (0.52-1.04); Glucose 73 mg/dL (74-106); Potassium 4.1 mmol/L (3.5-5.1); SGOT/AST 29 U/L (14-36); SGPT/ALT 27 U/L (0-35); SODIUM 139 mmol/L (137-145); Total Protein 6.4 g/dL (6.3-8.2)
[2019-05-05] MEDS ORDERED: RIZATRIPTAN BENZOATE PO SCH (07:30)
[2019-05-05] MEDS ORDERED: MEDICATION INTERVENTION MC SCH ×2 (08:00→08:15)
--- NOTE | 2019-05-05 08:39 | PCM.NOTE ---
Date and Time: 05/05/19832 Subjective Assessment: Patient reports continued diarrhea here in the hospital and had to have a shower this AM to clean up. She reports continues to feel tired and reports she is hungry. Sometimes feels light headed. She has been NPO here in the hospital but taking ice chips ok she reports. She reports recent colonoscopy with UAP and diagnosed with irritable bowel syndrome and gastroenteritis. - Review of Systems Constitutional: Fatigue Eyes: No Symptoms Ears, Nose, & Throat: No Symptoms Respiratory: No Symptoms Cardiac: No Symptoms Abdominal/Gastrointestinal: Diarrhea Genitourinary Symptoms: No Symptoms Musculoskeletal: No Symptoms Skin: No Symptoms Objective Exam General Appearance: no apparent distress, alert Neurologic Exam: alert, cooperative, normal mood/affect Skin Exam: normal color, warm, No dry Respiratory Exam: normal breath sounds, lungs clear, No crackles/rales, No rhonchi, No wheezing Cardiovascular Exam: regular rate/rhythm, normal heart sounds, No murmur, No friction rub, No gallop Gastrointestinal/Abdomen Exam: soft, normal bowel sounds, No tenderness, No distention, No mass, No guarding Extremity Exam: other (no c/c/e) OBJECTIVE DATA Vital Signs: Vital Signs - 24 hr Temp Pulse Resp BP Pulse Ox 05/05/19 07:32 98.3 F 84 18 123/64 97 05/05/19 07:00 98.3 F 84 18 123/64 97 05/05/19 04:00 98.4 F 67 17 137/66 95 05/05/19 00:00 98.4 F 67 17 137/66 95 05/04/19 20:00 98.2 F 71 18 122/61 95 05/04/19 15:28 97.5 F 72 18 137/67 97 05/04/19 15:11 97.5 F 72 18 137/67 97 05/04/19 14:40 99 05/04/19 13:30 82 16 155/103 95 05/04/19 13:11 97.5 F 72 18 137/67 97 05/04/19 11:25 82 16 166/78 96 05/04/19 10:49 98.0 F 87 16 177/83 99 Pain Assessment - Last Documented Pain Intensity 2 Pain Scale Used [facility] Intake and Output: Intake & Output 05/03/19 05/04/19 05/05/1919 06:59 06:59 06:59 06:59 Intake Total 0 Balance 0 Weight 95.3 kg Lab Results: Lab Results-Last 24 Hours 05/04/19 05/04/19 05/04/19 Range/Units 11:22 11:22 11:34 WBC 10.0 (4.0-10.5) K/mm3 RBC 5.03 (4.1-5.4) M/mm3 Hgb 15.5 (12.0-16.0) gm/dl Hct 44.9 (35-47) % MCV 89.3 (78-100) fl MCH 30.8 (26-32) pg MCHC 34.5 (32-36) g/dl RDW 12.9 (11.5-14.0) % Plt Count 178 (150-450) K/mm3 MPV 10.6 H (6-9.5) fl Gran % 82.9 H (36.0-66.0) % Eos # (Auto) 0.02 (0-0.5) Absolute Lymphs (auto) 1.12 (1.0-4.6) Absolute Monos (auto) 0.56 (0.0-1.3) Lymphocytes % 11.2 L (24.0-44.0) % Monocytes % 5.6 (0.0-12.0) % Eosinophils % 0.2 (0.00-5.0) % Basophils % 0.1 (0.0-0.4) % Absolute Granulocytes 8.26 H (1.4-6.9) Basophils # 0.01 (0-0.4) Sodium (137-145) mmol/L Potassium (3.5-5.1) mmol/L Chloride (98-107) mmol/L Carbon Dioxide (22-30) mmol/L Anion Gap (5-15) MEQ/L BUN (7-17) mg/dL Creatinine (0.52-1.04) mg/dL Estimated GFR ML/MIN Glucose (74-106) mg/dL Lactic Acid 1.5 (0.4-2.0) Calcium (8.4-10.2) mg/dL Total Bilirubin (0.2-1.3) mg/dL AST (14-36) U/L ALT (0-35) U/L Alkaline Phosphatase (38-126) U/L Serum Total Protein (6.3-8.2) g/dL Albumin (3.5-5.0) g/dL Amylase (30-110) U/L Lipase (23-300) U/L Urine Color YELLOW (YELLOW) Urine Appearance CLEAR (CLEAR) Urine pH 5.0 (5-6) Ur Specific [place] >1.060 (1.005-1.025) Urine Protein NEGATIVE (Negative) Urine Ketones NEGATIVE (NEGATIVE) Urine Blood NEGATIVE (0-5) Nasim/ul Urine Nitrite NEGATIVE (NEGATIVE) Urine Bilirubin NEGATIVE (NEGATIVE) Urine Urobilinogen NEGATIVE (0-1) mg/dL Ur Leukocyte Esterase NEGATIVE (NEGATIVE) Urine WBC (Auto) NONE (0-5) /HPF Urine RBC (Auto) 3-5 (0-2) /HPF U Epithel Cells (Auto) NONE (FEW) /HPF Urine Bacteria (Auto) RARE (NEGATIVE) /HPF Urine Mucus (Auto) SLIGHT (NEGATIVE) /HPF Urine Culture Reflexed NO (NO) Urine Glucose NEGATIVE (NEGATIVE) mg/dL Stl C. cayetanensis PCR (NEGATIVE) Stl Adenov F 40/41 PCR (NEGATIVE) Stool Astrovirus (PCR) (NEGATIVE) Stool Cryptosporidium PCR (NEGATIVE) Stool EPEC (PCR) (NEGATIVE) Stool EAEC (PCR) (NEGATIVE) Stl E. histolytica PCR (NEGATIVE) Stl P. shigelloides PCR (NEGATIVE) Stool Sapovirus (PCR) (NEGATIVE) St Y.enterocolitica PCR (NEGATIVE) Stool Vibrio (PCR) (NEGATIVE) Stl Vibrio cholerae PCR (NEGATIVE) Stl Norovirus GI/GII PCR (NEGATIVE) Campylobacter (PCR) (NEGATIVE) C. difficile Screen (NEGATIVE) C.difficile 027-NAP1-B1 (NEGATIVE) C. difficile (PCR) (NEGATIVE) Enterotoxigenic E. coli (NEGATIVE) E.coli Shiga Toxins (NEGATIVE) Giardia lamblia (NEGATIVE) Rotavirus A (PCR) (NEGATIVE) Salmonella (PCR) (NEGATIVE) Shigella (PCR) (NEGATIVE) 05/04/19 05/04/19 05/04/19 Range/Units 11:34 21:39 21:41 WBC (4.0-10.5) K/mm3 RBC (4.1-5.4) M/mm3 Hgb (12.0-16.0) gm/dl Hct (35-47) % MCV (78-100) fl MCH (26-32) pg MCHC (32-36) g/dl RDW (11.5-14.0) % Plt Count (150-450) K/mm3 MPV (6-9.5) fl Gran % (36.0-66.0) % Eos # (Auto) (0-0.5) Absolute Lymphs (auto) (1.0-4.6) Absolute Monos (auto) (0.0-1.3) Lymphocytes % (24.0-44.0) % Monocytes % (0.0-12.0) % Eosinophils % (0.00-5.0) % Basophils % (0.0-0.4) % Absolute Granulocytes (1.4-6.9) Basophils # (0-0.4) Sodium 142 (137-145) mmol/L Potassium 3.9 (3.5-5.1) mmol/L Chloride 106 (98-107) mmol/L Carbon Dioxide 23 (22-30) mmol/L Anion Gap 16.5 H (5-15) MEQ/L BUN 9 (7-17) mg/dL Creatinine 0.57 (0.52-1.04) mg/dL Estimated GFR > 60.0 ML/MIN Glucose 92 (74-106) mg/dL Lactic Acid (0.4-2.0) Calcium 11.3 H (8.4-10.2) mg/dL Total Bilirubin 1.20 (0.2-1.3) mg/dL AST 39 H (14-36) U/L ALT 34 (0-35) U/L Alkaline Phosphatase 112 (38-126) U/L Serum Total Protein 8.5 H (6.3-8.2) g/dL Albumin 5.0 (3.5-5.0) g/dL Amylase 55 (30-110) U/L Lipase 49 (23-300) U/L Urine Color (YELLOW) Urine Appearance (CLEAR) Urine pH (5-6) Ur Specific [place] (1.005-1.025) Urine Protein (Negative) Urine Ketones (NEGATIVE) Urine Blood (0-5) Nasim/ul Urine Nitrite (NEGATIVE) Urine Bilirubin (NEGATIVE) Urine Urobilinogen (0-1) mg/dL Ur Leukocyte Esterase (NEGATIVE) Urine WBC (Auto) (0-5) /HPF Urine RBC (Auto) (0-2) /HPF U Epithel Cells (Auto) (FEW) /HPF Urine Bacteria (Auto) (NEGATIVE) /HPF Urine Mucus (Auto) (NEGATIVE) /HPF Urine Culture Reflexed (NO) Urine Glucose (NEGATIVE) mg/dL Stl C. cayetanensis PCR NEGATIVE (NEGATIVE) Stl Adenov F 40/41 PCR NEGATIVE (NEGATIVE) Stool Astrovirus (PCR) NEGATIVE (NEGATIVE) Stool Cryptosporidium PCR NEGATIVE (NEGATIVE) Stool EPEC (PCR) POSITIVE A (NEGATIVE) Stool EAEC (PCR) NEGATIVE (NEGATIVE) Stl E. histolytica PCR NEGATIVE (NEGATIVE) Stl P. shigelloides PCR NEGATIVE (NEGATIVE) Stool Sapovirus (PCR) NEGATIVE (NEGATIVE) St Y.enterocolitica PCR NEGATIVE (NEGATIVE) Stool Vibrio (PCR) NEGATIVE (NEGATIVE) Stl Vibrio cholerae PCR NEGATIVE (NEGATIVE) Stl Norovirus GI/GII PCR NEGATIVE (NEGATIVE) Campylobacter (PCR) NEGATIVE (NEGATIVE) C. difficile Screen POSITIVE (NEGATIVE) C.difficile 027-NAP1-B1 PRESUMPTIVE NEGATIVE (NEGATIVE) C. difficile (PCR) POSITIVE A (NEGATIVE) Enterotoxigenic E. coli NEGATIVE (NEGATIVE) E.coli Shiga Toxins NEGATIVE (NEGATIVE) Giardia lamblia NEGATIVE (NEGATIVE) Rotavirus A (PCR) NEGATIVE (NEGATIVE) Salmonella (PCR) NEGATIVE (NEGATIVE) Shigella (PCR) NEGATIVE (NEGATIVE) 05/05/19 05/05/19 Range/Units 05:00 05:45 WBC 6.1 (4.0-10.5) K/mm3 RBC 3.99 L (4.1-5.4) M/mm3 Hgb 12.4 (12.0-16.0) gm/dl Hct 36.9 (35-47) % MCV 92.5 (78-100) fl MCH 31.0 (26-32) pg MCHC 33.6 (32-36) g/dl RDW 12.6 (11.5-14.0) % Plt Count 129 L (150-450) K/mm3 MPV 10.4 H (6-9.5) fl Gran % 70.1 H (36.0-66.0) % Eos # (Auto) 0.03 (0-0.5) Absolute Lymphs (auto) 1.41 (1.0-4.6) Absolute Monos (auto) 0.39 (0.0-1.3) Lymphocytes % 23.0 L (24.0-44.0) % Monocytes % 6.4 (0.0-12.0) % Eosinophils % 0.5 (0.00-5.0) % Basophils % 0.0 (0.0-0.4) % Absolute Granulocytes 4.30 (1.4-6.9) Basophils # 0 (0-0.4) Sodium 139 (137-145) mmol/L Potassium 4.1 (3.5-5.1) mmol/L Chloride 108 H (98-107) mmol/L Carbon Dioxide 23 (22-30) mmol/L Anion Gap 12.9 (5-15) MEQ/L BUN 13 (7-17) mg/dL Creatinine 0.55 (0.52-1.04) mg/dL Estimated GFR > 60.0 ML/MIN Glucose 73 L (74-106) mg/dL Lactic Acid (0.4-2.0) Calcium 10.0 (8.4-10.2) mg/dL Total Bilirubin 1.30 (0.2-1.3) mg/dL AST 29 (14-36) U/L ALT 27 (0-35) U/L Alkaline Phosphatase 74 (38-126) U/L Serum Total Protein 6.4 (6.3-8.2) g/dL Albumin 3.8 (3.5-5.0) g/dL Amylase (30-110) U/L Lipase (23-300) U/L Urine Color (YELLOW) Urine Appearance (CLEAR) Urine pH (5-6) Ur Specific [place] (1.005-1.025) Urine Protein (Negative) Urine Ketones (NEGATIVE) Urine Blood (0-5) Nasim/ul Urine Nitrite (NEGATIVE) Urine Bilirubin (NEGATIVE) Urine Urobilinogen (0-1) mg/dL Ur Leukocyte Esterase (NEGATIVE) Urine WBC (Auto) (0-5) /HPF Urine RBC (Auto) (0-2) /HPF U Epithel Cells (Auto) (FEW) /HPF Urine Bacteria (Auto) (NEGATIVE) /HPF Urine Mucus (Auto) (NEGATIVE) /HPF Urine Culture Reflexed (NO) Urine Glucose (NEGATIVE) mg/dL Stl C. cayetanensis PCR (NEGATIVE) Stl Adenov F 40/41 PCR (NEGATIVE) Stool Astrovirus (PCR) (NEGATIVE) Stool Cryptosporidium PCR (NEGATIVE) Stool EPEC (PCR) (NEGATIVE) Stool EAEC (PCR) (NEGATIVE) Stl E. histolytica PCR (NEGATIVE) Stl P. shigelloides PCR (NEGATIVE) Stool Sapovirus (PCR) (NEGATIVE) St Y.enterocolitica PCR (NEGATIVE) Stool Vibrio (PCR) (NEGATIVE) Stl Vibrio cholerae PCR (NEGATIVE) Stl Norovirus GI/GII PCR (NEGATIVE) Campylobacter (PCR) (NEGATIVE) C. difficile Screen (NEGATIVE) C.difficile 027-NAP1-B1 (NEGATIVE) C. difficile (PCR) (NEGATIVE) Enterotoxigenic E. coli (NEGATIVE) E.coli Shiga Toxins (NEGATIVE) Giardia lamblia (NEGATIVE) Rotavirus A (PCR) (NEGATIVE) Salmonella (PCR) (NEGATIVE) Shigella (PCR) (NEGATIVE) Radiology Exams: Radiology Procedures Category Date Time Status ABDOMEN AND PELVIS W CONTRAST [CT] Stat Exams 05/04/19 12:37 Completed Assessment/Plan (1) Enteropathogenic Escherichia coli infection Current Visit: Yes Status: Acute Assessment & Plan: Start on levofloxacin evening of 05/04/19. Will continue since she has had copious diarrhea requiring IV fluids and hospitalization. Discussed that it will resolve either on its own or with antibiotics. Will try to obtain gastroenterology notes/recent colonoscopy for chart. Advance diet. Code(s): A04.0 - ENTEROPATHOGENIC ESCHERICHIA COLI INFECTION (2) Irritable bowel syndrome with diarrhea Current Visit: Yes Status: Acute Assessment & Plan: Seeing [facility]. Code(s): K58.0 - IRRITABLE BOWEL SYNDROME WITH DIARRHEA (3) Rheumatoid arthritis Current Visit: Yes Status: Acute Assessment & Plan: Continue pain medication. Code(s): M06.9 - RHEUMATOID ARTHRITIS, UNSPECIFIED (4) Depression Current Visit: Yes Status: Acute Assessment & Plan: Continue current medication. Code(s): F32.9 - MAJOR DEPRESSIVE DISORDER, SINGLE EPISODE, UNSPECIFIED
[2019-05-05] MEDS: Levofloxacin 500MG/100ML D5W 500 MG/100 ML BAG IV SCH (09:45)
[2019-05-05] MEDS: MORPHINE SULFATE 4 MG INJ IV PRN ×2 (09:45→15:46)
[2019-05-05] MEDS: Prozac 20 MG PO SCH ×2 (09:46→22:25)
[2019-05-05] MEDS: Pepcid 20 MG PO SCH ×2 (09:46→22:25)
[2019-05-05] MEDS: Protonix 40MG Tablet PO SCH (09:46)
[2019-05-05] MEDS: NEURONTIN 300 MG PO SCH ×4 (09:46→22:25)
[2019-05-05] MEDS: Zofran 4 MG/2 ML VIAL IV PRN (09:52)
[2019-05-05] MEDS ORDERED: NON-FORMULARY ITEM (Colestipol Hcl [Colestid] 1 GM) PO SCH (10:00)
[2019-05-05] MEDS: REMERON 30 MG PO SCH ×2 (22:25)
[2019-05-05] MEDS: DESYREL 50 MG PO SCH (22:25)
[2019-05-05] MEDS: xanAX 0.5 MG PO SCH (22:26)
[2019-05-06] MEDS: Sodium Chloride 0.9% 1000 ML 1,000 ML IV SCH (04:34)
[2019-05-06 05:32] LABS: Basophil (Absolute #) 0 (0-0.4); Eosinophil % 1.1 % (0.00-5.0); Eosinophil (Absolute #) 0.05 (0-0.5); Granulocytes % 65.3 % (36.0-66.0); Hematocrit 34.4 % (35-47); Hemoglobin 11.8 gm/dl (12.0-16.0); Lymphocyte (Absolute #) 1.25 (1.0-4.6); Lymphocytes % 26.4 % (24.0-44.0); Mean Cell Volume 91.5 fl (78-100); Mean Corpuscular Hgb Concent. 34.3 g/dl (32-36); Mean Platelet Volume 10.2 fl (6-9.5); Monocyte (Absolute #) 0.34 (0.0-1.3); Monocytes % 7.2 % (0.0-12.0); Platelet Count 126 K/mm3 (150-450); Red Blood Count 3.76 M/mm3 (4.1-5.4); Red Cell Distribution Width 12.6 % (11.5-14.0); White Blood Count 4.7 K/mm3 (4.0-10.5)
[2019-05-06 05:35] LABS: Mean Corpuscular Hemoglobin 31.3 pg (26-32)
[2019-05-06 05:45] LABS: ANION GAP 9.6 MEQ/L (5-15); BLOOD UREA NITROGEN 9 mg/dL (7-17); CHLORIDE 109 mmol/L (98-107); Calcium 9.6 mg/dL (8.4-10.2); Carbon Dioxide 25 mmol/L (22-30); Creatinine 1 0.47 mg/dL (0.52-1.04); Glucose 98 mg/dL (74-106); Potassium 4.1 mmol/L (3.5-5.1); SODIUM 140 mmol/L (137-145)
[2019-05-06] MEDS: NEURONTIN 300 MG PO SCH ×4 (09:06→20:56)
[2019-05-06] MEDS: Prozac 20 MG PO SCH ×2 (09:07→20:56)
[2019-05-06] MEDS: Protonix 40MG Tablet PO SCH (09:07)
[2019-05-06] MEDS: Pepcid 20 MG PO SCH ×2 (09:07→20:56)
[2019-05-06] MEDS: Levofloxacin 500MG/100ML D5W 500 MG/100 ML BAG IV SCH (09:09)
[2019-05-06] MEDS: PATIENT OWN MEDICATION PO SCH ×2 (11:49→20:57)
[2019-05-06] MEDS: MSIR 15 MG PO PRN ×2 (12:42→20:56)
[2019-05-06] MEDS: Zofran 4 MG/2 ML VIAL IV PRN (12:43)
--- NOTE | 2019-05-06 13:26 | PCM.NOTE ---
Date and Time: 05/06/19 1322 Subjective Assessment: Patient reports continued diarrhea. She had a fall in the bathroom this AM. She was standing up and trying to pull her pull up up and fell forward. She reports she feels dizzy now. She continues to feel tired. She reports food is going straight through her. Her colonoscopy report from Dr. Hatch on 04/01/19 is in the chart and was reviewed. She reports PT saw her as ordered today and plans to come back. - Review of Systems Constitutional: Fatigue, Other (feels cold) Eyes: No Symptoms Ears, Nose, & Throat: No Symptoms Respiratory: No Symptoms Cardiac: No Symptoms Abdominal/Gastrointestinal: Diarrhea Genitourinary Symptoms: No Symptoms Musculoskeletal: No Symptoms Objective Exam General Appearance: no apparent distress, alert, obese, other (I saw her before her fall, had to wake her up, and she was very groggy and then after her fall, she was more awake.) Neurologic Exam: alert, cooperative Skin Exam: normal color, warm, dry, No rash Respiratory Exam: normal breath sounds, lungs clear, No crackles/rales, No rhonchi, No wheezing Cardiovascular Exam: regular rate/rhythm, normal heart sounds, No murmur, No friction rub, No gallop Gastrointestinal/Abdomen Exam: soft, normal bowel sounds, No tenderness, No distention, No mass, No guarding Extremity Exam: other (no c/c/e) OBJECTIVE DATA Vital Signs: Vital Signs - 24 hr Temp Pulse Resp BP Pulse Ox 05/06/19 11:33 98.1 F 69 18 154/71 99 05/06/19 07:05 98.4 F 70 18 137/74 97 05/06/19 04:00 97.2 F 68 16 131/71 95 05/06/19 00:00 97.4 F 67 20 129/67 94 L 05/05/19 20:00 98.3 F 78 18 124/58 95 05/05/19 15:42 97.8 F 81 18 120/56 96 05/05/19 15:40 97.8 F 81 18 120/56 96 Pain Assessment - Last Documented Pain Intensity 0 [facility] Intake and Output: Intake & Output 05/04/19 05/05/19 05/06/19 05/07/19 06:59 06:59 06:59 06:59 Intake Total 0 4354 1060 Output Total 600 800 Balance 0 6474 260 Weight 95.3 kg 97.9 kg Lab Results: Lab Results-Last 24 Hours 05/06/19 05/06/19 Range/Units 05:25 05:25 WBC 4.7 (4.0-10.5) K/mm3 RBC 3.76 L (4.1-5.4) M/mm3 Hgb 11.8 L (12.0-16.0) gm/dl Hct 34.4 L (35-47) % MCV 91.5 (78-100) fl MCH 31.3 (26-32) pg MCHC 34.3 (32-36) g/dl RDW 12.6 (11.5-14.0) % Plt Count 126 L (150-450) K/mm3 MPV 10.2 H (6-9.5) fl Gran % 65.3 (36.0-66.0) % Eos # (Auto) 0.05 (0-0.5) Absolute Lymphs (auto) 1.25 (1.0-4.6) Absolute Monos (auto) 0.34 (0.0-1.3) Lymphocytes % 26.4 (24.0-44.0) % Monocytes % 7.2 (0.0-12.0) % Eosinophils % 1.1 (0.00-5.0) % Basophils % 0.0 (0.0-0.4) % Absolute Granulocytes 3.10 (1.4-6.9) Basophils # 0 (0-0.4) Sodium 140 (137-145) mmol/L Potassium 4.1 (3.5-5.1) mmol/L Chloride 109 H (98-107) mmol/L Carbon Dioxide 25 (22-30) mmol/L Anion Gap 9.6 (5-15) MEQ/L BUN 9 (7-17) mg/dL Creatinine 0.47 L (0.52-1.04) mg/dL Estimated GFR > 60.0 ML/MIN Glucose 98 (74-106) mg/dL Calcium 9.6 (8.4-10.2) mg/dL Radiology Exams: Radiology Procedures Category Date Time Status ABDOMEN AND PELVIS W CONTRAST [CT] Stat Exams 05/04/19 12:37 Completed Assessment/Plan (1) Enteropathogenic Escherichia coli infection Current Visit: Yes Status: Acute Assessment & Plan: Continue levofloxacin. Code(s): A04.0 - ENTEROPATHOGENIC ESCHERICHIA COLI INFECTION (2) Irritable bowel syndrome with diarrhea Current Visit: Yes Status: Acute Assessment & Plan: Will continue outpatient follow up with GI. Code(s): K58.0 - IRRITABLE BOWEL SYNDROME WITH DIARRHEA (3) Rheumatoid arthritis Current Visit: Yes Status: Acute Assessment & Plan: Continue home medication. Code(s): M06.9 - RHEUMATOID ARTHRITIS, UNSPECIFIED (4) Depression Current Visit: Yes Status: Acute Assessment & Plan: Well controlled. Code(s): F32.9 - MAJOR DEPRESSIVE DISORDER, SINGLE EPISODE, UNSPECIFIED (5) Diarrhea Current Visit: Yes Status: Acute Qualifiers: Diarrhea type: unspecified type Qualified Code(s): R19.7 - Diarrhea, unspecified Assessment & Plan: Check O and P. Also start metronidazole. Will increase IV fluids again. Code(s): R19.7 - DIARRHEA, UNSPECIFIED
[2019-05-06] MEDS: FLAGYL 500 MG IVPB 500 MG/100 ML BAG IV SCH (14:51)
[2019-05-06] MEDS: DESYREL 50 MG PO SCH (20:56)
[2019-05-06] MEDS: xanAX 0.5 MG PO SCH (20:56)
[2019-05-07] MEDS: REMERON 30 MG PO SCH (00:05)
[2019-05-07] MEDS: FLAGYL 500 MG IVPB 500 MG/100 ML BAG IV SCH ×2 (00:05→05:19)
[2019-05-07] MEDS: Sodium Chloride 0.9% 1000 ML 1,000 ML IV SCH (03:12)
[2019-05-07 05:44] LABS: Basophil (Absolute #) 0 (0-0.4); Eosinophil % 2.6 % (0.00-5.0); Eosinophil (Absolute #) 0.11 (0-0.5); Granulocyte Absolute (ANC) 2.63 (1.4-6.9); Granulocytes % 61.5 % (36.0-66.0); Hematocrit 33.3 % (35-47); Hemoglobin 11.4 gm/dl (12.0-16.0); Lymphocyte (Absolute #) 1.22 (1.0-4.6); Lymphocytes % 28.6 % (24.0-44.0); Mean Cell Volume 92.5 fl (78-100); Mean Corpuscular Hgb Concent. 34.2 g/dl (32-36); Mean Platelet Volume 10.4 fl (6-9.5); Monocyte (Absolute #) 0.31 (0.0-1.3); Monocytes % 7.3 % (0.0-12.0); Platelet Count 124 K/mm3 (150-450); Red Cell Distribution Width 12.7 % (11.5-14.0); White Blood Count 4.3 K/mm3 (4.0-10.5)
[2019-05-07 05:50] LABS: Mean Corpuscular Hemoglobin 31.6 pg (26-32)
[2019-05-07 06:07] LABS: ANION GAP 10.7 MEQ/L (5-15); BLOOD UREA NITROGEN 6 mg/dL (7-17); CHLORIDE 108 mmol/L (98-107); Calcium 9.6 mg/dL (8.4-10.2); Carbon Dioxide 26 mmol/L (22-30); Creatinine 1 0.47 mg/dL (0.52-1.04); Glucose 92 mg/dL (74-106); Potassium 3.9 mmol/L (3.5-5.1); SODIUM 141 mmol/L (137-145)
[2019-05-07 07:10] VITALS: BP 125/70; PULSE 66; O2SAT 96
--- NOTE | 2019-05-07 08:13 | PCM.DCORD ---
- Discharge Discharge Date: 05/07/19 Disposition: Home, Self-Care Condition: Good Prescriptions: New Levofloxacin [Levofloxacin 500 MG Tablet] 500 mg PO DAILY #4 tablet Continue Ergocalciferol (Vitamin D2) [Vitamin D] 50,000 mg PO UD Atorvastatin Calcium [Lipitor] 40 mg PO HS Hydroxychloroquine Sulfate [Plaquenil] 200 mg PO BID Trazodone HCl 50 mg [Desyrel 50 mg] 50 mg PO HS Furosemide 20 mg [Lasix 20 mg] 20 mg PO DAILY PRN PRN PRN Reason: Shortness Of Breath Gabapentin 600 mg PO QID Alprazolam [Xanax] 0.5 mg HS Morphine Sulfate 15 mg PO 5XD Fluoxetine HCl 40 mg PO BID Colestipol HCl [Colestid] 1 gm PO BID Multivitamin,Therapeutic [Thera-Tabs] 1 each PO DAILY Ranitidine HCl 150 mg PO BID PANTOPRAZOLE 40 mg Tablet [Protonix 40MG Tablet] 40 mg PO DAILY Rizatriptan Benzoate [Rizatriptan] 1 tab PO UD Infliximab-Dyyb [Inflectra] 1 dose IV INFUS UD Follow up with: NIRANJAN MARTINEZ [Primary Care Provider] - 05/14/19 10:30 am
--- NOTE | 2019-05-07 08:40 | DS ---
DISCHARGE DIAGNOSES: 1) ENTEROPATHOGENIC ESCHERICHIA COLI. 2) IRRITABLE BOWEL SYNDROME WITH DIARRHEA. 3) RHEUMATOID ARTHRITIS. 4) DEPRESSION. 5) DIARRHEA. 6) FALL. DISCHARGE PHYSICAL EXAMINATION: VITALS: Temperature current 97.8F, temperature max 97.9F, heart rate 66, respiratory rate 18, blood pressure 125/70. Oxygen saturation 96% on room air. GENERAL: The patient is pleasant talkative lady sitting up in no acute distress eating her breakfast. States she feels much better. CVS: She has a regular rate and rhythm. No murmurs, gallops or rubs are appreciated. CHEST: Clear to auscultation bilaterally. No crackles or wheezes. ABDOMEN: Soft, nontender, nondistended with normal bowel sounds. EXTREMITIES: No clubbing, cyanosis or edema. SKIN: Warm, dry and intact. HOSPITAL COURSE: 1) ENTEROPATHOGENIC ESCHERICHIA COLI INFECTION: Given that she had multiple stools, we decided to treat her with levofloxacin. I am sending her home with four days of 500 mg to complete a seven day course. She had a GI panel that revealed this. She had a recent abnormal colonoscopy with her gastroenterology provider. The patient will follow up with them. 2) IRRITABLE BOWEL SYNDROME WITH DIARRHEA: She reports her diarrhea improved greatly once her son brought in her Colestid that she could take. 3) RHEUMATOID ARTHRITIS: She was continued on her home medications. 4) DEPRESSION: Well controlled on her home medications. 5) DIARRHEA: She initially been started on metronidazole along with Levaquin but her Clostridium difficile tox was negative so I stopped this. I added it again yesterday when she was having more diarrhea but she has markedly improved quickly so I do not think it was the metronidazole. I think it probably was her Colestid that she was taking so I plan to just discharge her on the Levaquin and to follow up with her primary provider. 6) FALL: She did have a fall during her hospitalization. She denies any headache. She has not had any problems on her neural check and feels steady on her feet now. Physical therapy is asking for an outpatient order for physical therapy so will write this. DISCHARGE MEDICATIONS: Please see the discharge order. FOLLOW UP: She is to follow up with me next week.
[2019-05-08 14:18] LABS: Source: Feces
[2019-05-08 17:07] LABS: Giardia Antigen EIA Negative (Negative)
== END 2019-05-07 09:15 | disposition home or self-care (01) ==
LOC: ED 10:21 → MED SURG 15:09
PROVIDERS: ADMIT Family Medicine; ATTEND Internal Medicine
DX: A04.0 Enteropathogenic Escherichia coli infection (principal); K58.0 Irritable bowel syndrome with diarrhea; R11.2 Nausea with vomiting, unspecified; R10.9 Unspecified abdominal pain; E86.0 Dehydration; R42 Dizziness and giddiness; R53.83 Other fatigue; R51 Headache; E78.00 Pure hypercholesterolemia, unspecified; Z79.899 Other long term (current) drug therapy; M06.9 Rheumatoid arthritis, unspecified; F32.9 Major depressive disorder, single episode, unspecified; W18.39XA Other fall on same level, initial encounter; Y93.F9 Activity, other caregiving; Y92.231 Patient bathroom in hospital as the place of occurrence of the external cause
CPT/HCPCS: 36415; 74177; 80048; 80053; 81001; 82150; 83605; 83690; 84443; 85025; 87177; 87209; 87493; 87507; 96360; 96374; 96375; 97112; 97161; 99285; G0378; P9612; J1170; J1956; J2270; J2405; A9270-GY

== ENCOUNTER 2019-07-07 12:15 | Emergency (ER) | payer MEDICARE ==
[2019-07-07] MEDS ORDERED: PERCOCET TABLET 5/325MG PO STA (12:40)
--- NOTE | 2019-07-07 12:49 | ERPHSYRPT ---
- History of Present Illness Source: patient Exam Limitations: no limitations Physician History: Patient was doing yard work when she tripped and fell, falling forward going down a hill, hitting her left side of head, chest, shoulder and elbow. It caused a laceration to her left outer, lower forehead and she has numbness to her left forearm. Patient's last tetanus was less than three years ago Occurred: just prior to arrival Reason for Fall: tripped Injuries/Pain Location: head, upper extremity, chest Loss of Consciousness: no loss of consciousness Quality: stabbing, throbbing Severity of Pain-Max: severe Severity of Pain-Current: severe Modifying Factors: Improves With: immobilization, movement Associated Symptoms (Fall): extremity injury, headache, neck pain, No abdominal pain, No back pain, No confusion, No chest pain, No dizziness, No lightheadedness, No muscle spasms, No nausea, No ringing in ears, No seizures, No shortness of breath, No slurred speech, No trouble walking, No vomiting, No vision changes Allergies/Adverse Reactions: celecoxib [From Celebrex] Allergy (Verified 05/04/19 10:54) pregabalin [From Lyrica] Allergy (Verified 05/04/19 10:54) vancomycin Allergy (Verified 05/04/19 10:54) acetaminophen [From Vicodin] Adverse Reaction (Verified 05/04/19 10:54) hydrocodone [From Vicodin] Adverse Reaction (Verified 05/04/19 10:54) Home Medications: Atorvastatin Calcium [Lipitor] 40 mg PO HS 09/13/17 [History] Ergocalciferol (Vitamin D2) [Vitamin D] 50,000 mg PO UD 09/13/17 [History] Furosemide 20 mg [Lasix 20 mg] 20 mg PO DAILY PRN PRN 09/13/17 [History] Gabapentin 600 mg PO QID 09/13/17 [History] Hydroxychloroquine Sulfate [Plaquenil] 200 mg PO BID 09/13/17 [History] Trazodone HCl 50 mg [Desyrel 50 mg] 50 mg PO HS 09/13/17 [History] Alprazolam [Xanax] 0.5 mg HS 05/04/19 [History] Colestipol HCl [Colestid] 1 gm PO BID 05/04/19 [History] Fluoxetine HCl 40 mg PO BID 05/04/19 [History] Infliximab-Dyyb [Inflectra] 1 dose IV INFUS UD 05/04/19 [History] Multivitamin,Therapeutic [Thera-Tabs] 1 each PO DAILY 05/04/19 [History] PANTOPRAZOLE 40 mg Tablet [Protonix 40MG Tablet] 40 mg PO DAILY 05/04/19 [ History] Ranitidine HCl 150 mg PO BID 05/04/19 [History] Ferrous Sulfate [Ferosul] 325 mg PO DAILY 07/07/19 [History] Hx Tetanus, Diphtheria Vaccination/Date Given: Yes (less than three years ago) Hx Influenza Vaccination/Date Given: Yes Hx Pneumococcal Vaccination/Date Given: No - Review of Systems Constitutional: No Fever, No Chills, No Lethargy Eyes: No Photophobia, No Double Vision Ears, Nose, & Throat: No Ear Discharge, No Nose Discharge, No Epistaxis, No Mouth Pain, No Loose Teeth Respiratory: No Cough, No Dyspnea Cardiac: No Chest Pain, No Edema, No Syncope Abdominal/Gastrointestinal: No Abdominal Pain, No Nausea, No Vomiting, No Diarrhea Genitourinary Symptoms: No Dysuria, No Flank Pain Musculoskeletal: Neck Pain, Fall, Joint Pain, No Back Pain Skin: No Rash Neurological: Headache, Parasthesia, No Dizziness, No Focal Weakness, No Sensory Changes Psychological: No Symptoms Endocrine: No Symptoms Hematologic/Lymphatic: No Easy Bleeding, No Easy Bruising All Other Systems: Reviewed and Negative - Past Medical History Pertinent Past Medical History: Yes Neurological History: Migraines, Peripheral Neuropathy Cardiac History: High Cholesterol Respiratory History: No Pertinent History Endocrine Medical History: No Pertinent History Musculoskeletal History: Osteoarthritis, Osteoporosis, Rheumatoid Arthritis GI Medical History: GERD, Irritable Bowel Psycho-Social History: Depression Female Reproductive Disorders: Abnormal Uterine Bleeding - Past Surgical History Past Surgical History: Yes Gastrointestinal: Appendectomy, Cholecystectomy Musculoskeletal: Orthopedic Surgery Female Surgical History: Hysterectomy Other Surgical History: sinus, bilateral knee replacements, back surg, neck surg - Social History Smoking Status: Never smoker Exposure to second hand smoke: No Drug Use: none Patient Lives Alone: No - Nursing Vital Signs Nursing Vital Signs: Initial Vital Signs Temperature 98.4 F 07/07/19 12:50 Pulse Rate 82 07/07/19 12:50 Respiratory Rate 16 07/07/19 12:50 Blood Pressure 148/76 07/07/19 12:50 O2 Sat by Pulse Oximetry 96 07/07/19 12:50 Pain Scale Pain Intensity 6 - Monae Coma Score Best Eye Response (Monae): (4) open spontaneously Best Verbal Response (Buchanan): (5) oriented Best Motor Response (Buchanan): (6) obeys commands Monae Total: 15 - Physical Exam General Appearance: no apparent distress Head Injury: lacerations, No Lambert's Sign Eye Exam: PERRL/EOMI ENT Exam: airway nml, nml ext.inspection, clear fluid (ears), clear fluid (nose) , midface instability, hearing grossly normal, No dental injury, No hemotympanum , No clotted nasal blood, No malocclusion, No oral injury Neck Exam: trachea midline, normal inspection, limited range of motion, paraspinous muscle tender, pain on movement of neck, tenderness, No lymphadenopathy, No subcutaneous emphysema Respiratory/Chest Exam: normal breath sounds, No chest tenderness, No respiratory distress Cardiovascular Exam: normal heart sounds, regular rate/rhythm, other (contusion of the left upper anterior chest) Gastrointestinal Exam: soft, No tenderness, No distention, No guarding, No ecchymosis, No rebound Back Exam: normal inspection, No CVA tenderness, No vertebral tenderness, No point tenderness Extremity Exam: normal inspection, normal range of motion, pelvis stable, limited range of motion, bony point tenderness, No deformities, No motor deficit , No sensory deficit Peripheral Pulses: dorsalis-pedis (R): 2+, dorsalis-pedis (L): 2+ Neurologic Exam: alert, oriented x 3, cooperative, electrical installer II-XII nml as tested, normal mood/affect, sensation nml, No motor deficits, No motor weakness Skin Exam: normal color, warm, dry SpO2 Interpretation: normal O2 Delivery: Room Air Procedures - Laceration/Wound Repair Left Lower Other Wound Location: forehead Wound Length (cm): 2 Wound's Depth, Shape: superficial, linear Wound Explored: clean Irrigated: Yes Hibiclens Prep: Yes Volume Anesthetic (ccs): 0 Wound Debrided: none Wound Repaired With: Dermabond Layer Closure?: No Sterile Dressing Applied?: No Splint Applied?: No - Course Nursing assessment & vital signs reviewed: Yes - Radiology Exams Chest X-ray Interpretation: Interpreted by me, Negative, No Pneumonia, No Pneumothorax , Other (negative rib fractures; broken domi-patient states chronic) Left Shoulder X-ray Interpretation: Interpreted by me, Negative, No Fracture, Nml Alignment, Nml Soft Tissues Left Elbow X-ray Interpretation: Negative, No Fracture, Nml Alignment, Nml Soft Tissues - CT Exams Head CT Interpretation: Negative, Tele-radiologist Report, No Fracture, No/ Intracranial Hemorrhag Cervical Spine CT Interpretation: Tele-radiologist Report, No Fracture, Other (multilevel DJD, Spinal Stenosis at C4-5, myltilevel DJD, Moderate C405 DDD; 2mm Anterolisthesis of C6on C7) Ordered Tests: Active Orders 24 hr Category Date Time Status CERVICAL SPINE WO CONTRAST [CT] Stat Exams 07/07/19 12:41 Taken CHEST 2 VIEWS (PA AND LAT) Stat Exams 07/07/19 13:41 Taken ELBOW (MINIMUM 3 VIEWS) Stat Exams 07/07/19 13:41 Taken HEAD WITHOUT CONTRAST [CT] Stat Exams 07/07/19 12:40 Taken SHOULDER Stat Exams 07/07/19 13:41 Taken Medication Summary Discontinued Medications Generic Name Dose Route Start Last Admin Trade Name Freq PRN Reason Stop Dose Admin Oxycodone/Acetaminophen 1 tab 07/07/19 12:40 07/07/19 13:02 Percocet Tablet 5/325mg PO 07/07/19 12:41 1 tab STAT STA Administration Oxycodone/Acetaminophen Confirm 07/07/19 12:55 Percocet Tablet 5/325mg Administered 07/07/19 12:56 Dose 1 tab .ROUTE .STK-MED ONE - Progress Progress: improved, pain not gone completely Progress Note: 07/07/19 15:31 pain improved; patient has full range of motion at the shoulder and elbow joints ; no respiratory distress and CTA bilaterally with equal breath sounds Counseled pt/family regarding: diagnosis, need for follow-up, rad results - Departure Departure Disposition: Home Clinical Impression: Contusion of left shoulder, initial encounter, Contusion of left elbow, initial encounter, Cervical strain, acute Laceration of periocular area without foreign body Qualifiers: Encounter type: initial encounter Laterality: left Qualified Code(s): S01.112A - Laceration without foreign body of left eyelid and periocular area, initial encounter Mild closed head injury Qualifiers: Encounter type: initial encounter Qualified Code(s): S09.90XA - Unspecified injury of head, initial encounter Contusion of left chest wall Qualifiers: Encounter type: initial encounter Qualified Code(s): S20.212A - Contusion of left front wall of thorax, initial encounter Hypertension Qualifiers: Hypertension type: essential hypertension Qualified Code(s): I10 - Essential ( primary) hypertension Condition: Good Critical Care Time: No Referrals: NIRANJAN MARTINEZ [Primary Care Provider] - Instructions: Shoulder Sprain, High Blood Pressure (DC), Laceration Repair With Glue (DC), Wound Care (DC), Closed Head Injury, Contusion (DC), Cervical Muscle Strain Prescriptions: Etodolac 400 mg [Lodine 400 mg] 400 mg PO BID PRN PRN #20 tablet PRN Reason: Pain
[2019-07-07] MEDS ORDERED: PERCOCET TABLET 5/325MG ONE (12:55)
[2019-07-07 14:55] VITALS: PULSE 94
[2019-07-07 15:55] VITALS: BP 185/71; O2SAT 97
--- NOTE | 2019-07-07 20:18 | XRAY ---
Indication: Head injury and left forehead laceration following fall. Multiple contiguous axial images obtained through the head without contrast. Comparison: None. Normal appearing brain parenchyma, ventricles, and bony calvarium. Visualized paranasal sinuses and mastoid air cells are clear. Impression: Normal CT head without contrast exam. Comment: Preliminary interpretation was made by [facility]. No critical discrepancy. CTDI 49.40
--- NOTE | 2019-07-07 20:22 | XRAY ---
Indication: Pain following fall. Comparison: None PA/lateral chest demonstrates minimal lingula subsegmental atelectasis/scarring. Remaining lungs clear. Heart is not enlarged. Bony thorax intact with mild osteopenia, mild dextroscoliosis, incompletely visualized thoracolumbar spinal hardware, lower cervical fusion, and epidural stimulator lead terminating T5 level. Impression: Nonacute chest with chronic features.
--- NOTE | 2019-07-07 20:24 | XRAY ---
Indication: Pain following fall. Comparison: None 3 views of the left elbow demonstrates mild osteopenia and radial capitellum joint space narrowing. No other bony, articular, or soft tissue abnormalities.
--- NOTE | 2019-07-07 20:24 | XRAY ---
Indication: Pain following fall. Comparison: None 3 views of the left shoulder demonstrates mild osteopenia, mild dextroscoliosis, and incompletely visualized spinal hardware. No other bony, articular, or soft tissue abnormalities.
--- NOTE | 2019-07-07 20:25 | XRAY ---
Indication: Neck pain following fall. Multiple contiguous axial images obtained through the cervical spine. Sagittal and coronal reformatted images obtained. Comparison: None Axial images negative for acute fracture, suspicious bony lesions, or spinal canal stenosis. C5-C6 fusion with intact anterior plate/screws. Minimal C4-C5 and C6-C7 degenerative endplate spurring. Also mild atlantoaxial degenerative arthropathy and multilevel degenerative facet hypertrophy bilaterally. Sagittal and coronal reformatted images demonstrates normal alignment with C4-C5 disc space narrowing and minimal 1 mm C6 anterolisthesis. No acute compression fracture or jumped facet. Normal-appearing craniocervical junction. Visualized noncontrasted soft tissues demonstrates mild carotid calcifications bilaterally. Impression: 1. Multilevel degenerative changes including minimal grade 1 C6 spondylolisthesis. 2. C5-C6 fusion. 3. Negative acute fracture. Comment: Preliminary interpretation was made by [facility]. No critical discrepancy. CTDI 54.09
== END 2019-07-07 15:50 | disposition home or self-care (01) ==
LOC: ED 12:15
DX: S40.012A Contusion of left shoulder, initial encounter (principal); S50.02XA Contusion of left elbow, initial encounter; S16.1XXA Strain of muscle, fascia and tendon at neck level, initial encounter; S01.112A Laceration without foreign body of left eyelid and periocular area, initial encounter; S09.90XA Unspecified injury of head, initial encounter; S20.212A Contusion of left front wall of thorax, initial encounter; I10 Essential (primary) hypertension; W01.198A Fall on same level from slipping, tripping and stumbling with subsequent striking against other object, initial encounter; Y93.89 Activity, other specified; Y92.096 Garden or yard of other non-institutional residence as the place of occurrence of the external cause; M54.2 Cervicalgia; R51 Headache
CPT/HCPCS: 12011; 70450; 71046; 72125; 73030; 73080; 99284; A9270-GY

== ENCOUNTER 2019-12-28 00:49 | Emergency (ER) | payer MEDICARE ==
--- NOTE | 2019-12-28 01:38 | ERPHSYRPT ---
- History of Present Illness Source: patient Exam Limitations: no limitations Patient Subjective Stated Complaint: pt states she has a cough that started yesterday and has been worse since this am. state she has been nasueated and vomited tonight at approx 2330. since vomiting she has had a headache, rated 9/ 10 and described as pressure. Triage Nursing Assessment: pt alert and oriented, answers questions approp. pt ambulatory with steady gait noted. respirations nonlabored. exp wheezes noted bilat upper lobs, frequent cough noted.pupils equal and reactive. bilat upper and lower ext strength equal and wnl. Physician History: 59yo female with hx of HTN who presents to ER for URI/cough yellow sputum x 2 days. Incessant cough causes chest wall painand severre headaches. Denies SOB. states Low grade fever. Also having some nausea and myalgias. NO obvious sick contacts. Timing/Duration: day(s) (2) Cough Quality/Degree: productive cough, sputum (yellow) Possible Cause: occasional episodes Modifying Factors: Improves With: nothing Associated Symptoms: fever, chills, chest pain/soreness, cough, headache, nasal congestion, sore throat Allergies/Adverse Reactions: celecoxib [From Celebrex] Allergy (Verified 12/28/19 01:16) pregabalin [From Lyrica] Allergy (Verified 12/28/19 01:16) vancomycin Allergy (Verified 12/28/19 01:16) acetaminophen [From Vicodin] Adverse Reaction (Verified 12/28/19 01:16) hydrocodone [From Vicodin] Adverse Reaction (Verified 12/28/19 01:16) Home Medications: Atorvastatin Calcium [Lipitor] 40 mg PO HS 09/13/17 [History] Ergocalciferol (Vitamin D2) [Vitamin D] 50,000 mg PO UD 09/13/17 [History] Furosemide 20 mg [Lasix 20 mg] 20 mg PO DAILY PRN PRN 09/13/17 [History] Gabapentin 600 mg PO QID 09/13/17 [History] Hydroxychloroquine Sulfate [Plaquenil] 200 mg PO BID 09/13/17 [History] Trazodone HCl 50 mg [Desyrel 50 mg] 50 mg PO HS 09/13/17 [History] Alprazolam [Xanax] 0.5 mg HS 05/04/19 [History] Colestipol HCl [Colestid] 1 gm PO BID 05/04/19 [History] Fluoxetine HCl 40 mg PO BID 05/04/19 [History] Infliximab-Dyyb [Inflectra] 1 dose IV INFUS UD 05/04/19 [History] Multivitamin,Therapeutic [Thera-Tabs] 1 each PO DAILY 05/04/19 [History] PANTOPRAZOLE 40 mg Tablet [Protonix 40MG Tablet] 40 mg PO DAILY 05/04/19 [ History] Ranitidine HCl 150 mg PO BID 05/04/19 [History] Ferrous Sulfate [Ferosul] 325 mg PO DAILY 07/07/19 [History] Hx Tetanus, Diphtheria Vaccination/Date Given: Yes (less than three years ago) Hx Influenza Vaccination/Date Given: Yes Hx Pneumococcal Vaccination/Date Given: No Immunizations Up to Date: Yes - Review of Systems Constitutional: Fever, Chills, Malaise Eyes: No Symptoms Ears, Nose, & Throat: Nose Congestion, Throat Pain Respiratory: Cough, Dyspnea Cardiac: No Chest Pain, No Edema, No Syncope Abdominal/Gastrointestinal: Nausea, Vomiting, No Abdominal Pain, No Diarrhea Genitourinary Symptoms: No Dysuria Musculoskeletal: Myalgias, No Back Pain, No Neck Pain Skin: No Rash Neurological: Headache, No Dizziness, No Focal Weakness, No Sensory Changes Psychological: No Symptoms Endocrine: No Symptoms All Other Systems: Reviewed and Negative - Past Medical History Pertinent Past Medical History: Yes Neurological History: Migraines, Peripheral Neuropathy Cardiac History: High Cholesterol Respiratory History: No Pertinent History Endocrine Medical History: No Pertinent History Musculoskeletal History: Osteoarthritis, Osteoporosis, Rheumatoid Arthritis GI Medical History: GERD, Irritable Bowel Psycho-Social History: Depression Female Reproductive Disorders: Abnormal Uterine Bleeding Other Medical History: RA, spinal stimulator to lt hip - Past Surgical History Past Surgical History: Yes Gastrointestinal: Appendectomy, Cholecystectomy Musculoskeletal: Orthopedic Surgery Female Surgical History: Hysterectomy Other Surgical History: sinus, bilateral knee replacements, back surg, neck surg - Social History Smoking Status: Never smoker Exposure to second hand smoke: No Drug Use: none Patient Lives Alone: No - Nursing Vital Signs Nursing Vital Signs: Initial Vital Signs Temperature 98.3 F 12/28/19 01:17 Pulse Rate 85 12/28/19 01:17 Respiratory Rate 20 12/28/19 01:17 Blood Pressure 147/97 12/28/19 01:17 O2 Sat by Pulse Oximetry 95 12/28/19 01:17 Pain Scale Pain Intensity 0 - Physical Exam General Appearance: mild distress, alert Eye Exam: PERRL/EOMI, eyes nml inspection Ears, Nose, Throat Exam: normal ENT inspection, TMs normal, pharynx normal, moist mucous membranes Neck Exam: normal inspection, non-tender, supple, full range of motion Respiratory Exam: normal breath sounds, chest tenderness, lungs clear, No respiratory distress Cardiovascular Exam: regular rate/rhythm, normal heart sounds Gastrointestinal/Abdomen Exam: soft, No tenderness, No guarding, No rebound Pelvic Exam: not done Rectal Exam: deferred Back Exam: normal inspection, No CVA tenderness, No vertebral tenderness Extremity Exam: normal inspection, normal range of motion Neurologic Exam: alert, oriented x 3, cooperative, normal mood/affect, sensation nml, No motor deficits Skin Exam: normal color, warm, dry, No rash Lymphatic Exam: No adenopathy SpO2: 95 - Course Nursing assessment & vital signs reviewed: Yes EKG Interpreted by Me: Sinus Rhythm, NORMAL AXIS, NORMAL INTERVALS, NORMAL QRS, Non-specific ST Changes - Radiology Exams Chest X-ray Interpretation: Reviewed by me, Other (Increased vascular markings bilat lower lobes, Infiltrates???) Ordered Tests: Active Orders 24 hr Category Date Time Status EKG-ER Only STAT Care 12/28/19 01:15 Active IV Insertion STAT Care 12/28/19 01:15 Active CHEST 1 VIEW (PORTABLE) Stat Exams 12/28/19 01:16 Taken BNP [NT PRO BNP] Stat Lab 12/28/19 04:40 Completed CBC W DIFF Stat Lab 12/28/19 01:56 Completed CMP Stat Lab 12/28/19 01:56 Completed D-DIMER QUANTITATIVE Stat Lab 12/28/19 05:21 Completed PROTIME WITH INR Stat Lab 12/28/19 01:56 Completed PTT Stat Lab 12/28/19 01:56 Completed TROPONIN Stat Lab 12/28/19 01:56 Completed TROPONIN Stat Lab 12/28/19 04:40 Completed UA W/RFX UR CULTURE Stat Lab 12/28/19 01:49 Completed Peak Expiratory Flow Rate ONCE RT 12/28/19 02:25 Active Respiratory Therapy Assessment DAILY RT 12/28/19 02:24 Active Medication Summary Discontinued Medications Generic Name Dose Route Start Last Admin Trade Name Toniq PRN Reason Stop Dose Admin Albuterol/Ipratropium 3 ml 12/28/19 02:13 12/28/19 02:19 Duoneb 0.5-3 Mg/3 Ml Neb IH 12/28/19 02:14 3 ml STAT ONE Administration Albuterol/Ipratropium Confirm 12/28/19 02:18 Duoneb 0.5-3 Mg/3 Ml Neb Administered 12/28/19 02:19 Dose 3 ml IH .STK-MED ONE Diphenhydramine HCl 50 mg 12/28/19 01:19 12/28/19 02:17 Benadryl 50 Mg/Ml IV 12/28/19 01:20 50 mg STAT ONE Administration Diphenhydramine HCl Confirm 12/28/19 01:57 Benadryl 50 Mg/Ml Administered 12/28/19 01:58 Dose 50 mg .ROUTE .STK-MED ONE Enoxaparin Sodium 90 mg 12/28/19 05:29 12/28/19 05:33 Enoxaparin Sodium 1 mg/kg (90 mg) 12/28/19 05:30 90 mg SQ Administration ONCE ONE Enoxaparin Sodium Confirm 12/28/19 05:32 Enoxaparin Sodium Administered 12/28/19 05:33 Dose 120 mg SQ .STK-MED ONE Sodium Chloride 1,000 mls @ 999 mls/hr 12/28/19 01:15 12/28/19 03:15 Sodium Chloride 0.9% 1000 Ml IV 12/28/19 02:15 Infused .Q1H1M STA Infusion Sodium Chloride Confirm 12/28/19 01:57 Sodium Chloride 0.9% 1000 Ml Administered 12/28/19 01:58 Dose 1,000 mls @ ud .ROUTE .STK-MED ONE Methylprednisolone Sodium Succinate 125 mg 12/28/19 01:20 12/28/19 02:06 Solu-Medrol 125 Mg IV 12/28/19 01:21 125 mg STAT ONE Administration Methylprednisolone Sodium Succinate Confirm 12/28/19 01:57 Solu-Medrol 125 Mg Administered 12/28/19 01:58 Dose 125 mg .ROUTE .STK-MED ONE Prochlorperazine Edisylate 10 mg 12/28/19 01:19 12/28/19 02:02 Compazine 10 Mg/2 Ml IV 12/28/19 01:20 10 mg STAT ONE Administration Prochlorperazine Edisylate Confirm 12/28/19 01:57 Compazine 10 Mg/2 Ml Administered 12/28/19 01:58 Dose 10 mg .ROUTE .STK-MED ONE Lab/Rad Data: Laboratory Result Diagrams 12/28/19 01:56 12/28/19 01:56 Laboratory Results 12/28/19 12/28/19 12/28/19 Range/Units 05:21 04:40 04:40 WBC (4.0-10.5) K/mm3 RBC (4.1-5.4) M/mm3 Hgb (12.0-16.0) gm/dl Hct (35-47) % MCV (78-100) fl MCH (26-32) pg MCHC (32-36) g/dl RDW (11.5-14.0) % Plt Count (150-450) K/mm3 MPV (7.5-11.0) fl Gran % (36.0-66.0) % Eos # (Auto) (0-0.5) Absolute Lymphs (auto) (1.0-4.6) Absolute Monos (auto) (0.0-1.3) Lymphocytes % (24.0-44.0) % Monocytes % (0.0-12.0) % Eosinophils % (0.00-5.0) % Basophils % (0.0-0.4) % Absolute Granulocytes (1.4-6.9) Basophils # (0-0.4) PT (9.95-12.35) SECONDS INR (0.8-3.0) APTT (25.3-37.0) SECONDS D-Dimer 248 (215-500) ng/mL Sodium (137-145) mmol/L Potassium (3.5-5.1) mmol/L Chloride (98-107) mmol/L Carbon Dioxide (22-30) mmol/L Anion Gap (5-15) MEQ/L BUN (7-17) mg/dL Creatinine (0.52-1.04) mg/dL Estimated GFR ML/MIN Glucose (74-106) mg/dL Calcium (8.4-10.2) mg/dL Total Bilirubin (0.2-1.3) mg/dL AST (14-36) U/L ALT (0-35) U/L Alkaline Phosphatase (38-126) U/L Troponin I 0.289 H* (0.000-0.034) ng/mL NT-Pro-B Natriuret Pep 153 (0-900) pg/mL Serum Total Protein (6.3-8.2) g/dL Albumin (3.5-5.0) g/dL Urine Color (YELLOW) Urine Appearance (CLEAR) Urine pH (5-6) Ur Specific Bozman (1.005-1.025) Urine Protein (Negative) Urine Ketones (NEGATIVE) Urine Blood (0-5) Nasim/ul Urine Nitrite (NEGATIVE) Urine Bilirubin (NEGATIVE) Urine Urobilinogen (0-1) mg/dL Ur Leukocyte Esterase (NEGATIVE) Urine WBC (Auto) (0-5) /HPF Urine RBC (Auto) (0-2) /HPF U Epithel Cells (Auto) (FEW) /HPF Urine Bacteria (Auto) (NEGATIVE) /HPF Urine Mucus (Auto) (NEGATIVE) /HPF Urine Culture Reflexed (NO) Urine Glucose (NEGATIVE) mg/dL Influenza Type A Ag (NEGATIVE) Influenza Type B Ag (NEGATIVE) RSV (PCR) (Negative) Group A Strep Antibody (NEGATIVE) 12/28/19 12/28/19 12/28/19 Range/Units 02:07 01:56 01:56 WBC (4.0-10.5) K/mm3 RBC (4.1-5.4) M/mm3 Hgb (12.0-16.0) gm/dl Hct (35-47) % MCV (78-100) fl MCH (26-32) pg MCHC (32-36) g/dl RDW (11.5-14.0) % Plt Count (150-450) K/mm3 MPV (7.5-11.0) fl Gran % (36.0-66.0) % Eos # (Auto) (0-0.5) Absolute Lymphs (auto) (1.0-4.6) Absolute Monos (auto) (0.0-1.3) Lymphocytes % (24.0-44.0) % Monocytes % (0.0-12.0) % Eosinophils % (0.00-5.0) % Basophils % (0.0-0.4) % Absolute Granulocytes (1.4-6.9) Basophils # (0-0.4) PT 11.9 (9.95-12.35) SECONDS INR 1.05 (0.8-3.0) APTT 34.5 (25.3-37.0) SECONDS D-Dimer (215-500) ng/mL Sodium 137 (137-145) mmol/L Potassium 3.9 (3.5-5.1) mmol/L Chloride 104 (98-107) mmol/L Carbon Dioxide 27 (22-30) mmol/L Anion Gap 9.7 (5-15) MEQ/L BUN 14 (7-17) mg/dL Creatinine 0.65 (0.52-1.04) mg/dL Estimated GFR > 60.0 ML/MIN Glucose 107 H (74-106) mg/dL Calcium 9.7 (8.4-10.2) mg/dL Total Bilirubin 0.70 (0.2-1.3) mg/dL AST 54 H (14-36) U/L ALT 46 H (0-35) U/L Alkaline Phosphatase 104 (38-126) U/L Troponin I 0.107 H* (0.000-0.034) ng/mL NT-Pro-B Natriuret Pep (0-900) pg/mL Serum Total Protein 7.3 (6.3-8.2) g/dL Albumin 4.1 (3.5-5.0) g/dL Urine Color (YELLOW) Urine Appearance (CLEAR) Urine pH (5-6) Ur Specific Bozman (1.005-1.025) Urine Protein (Negative) Urine Ketones (NEGATIVE) Urine Blood (0-5) Nasim/ul Urine Nitrite (NEGATIVE) Urine Bilirubin (NEGATIVE) Urine Urobilinogen (0-1) mg/dL Ur Leukocyte Esterase (NEGATIVE) Urine WBC (Auto) (0-5) /HPF Urine RBC (Auto) (0-2) /HPF U Epithel Cells (Auto) (FEW) /HPF Urine Bacteria (Auto) (NEGATIVE) /HPF Urine Mucus (Auto) (NEGATIVE) /HPF Urine Culture Reflexed (NO) Urine Glucose (NEGATIVE) mg/dL Influenza Type A Ag NEGATIVE (NEGATIVE) Influenza Type B Ag NEGATIVE (NEGATIVE) RSV (PCR) NEGATIVE (Negative) Group A Strep Antibody NEGATIVE (NEGATIVE) 12/28/19 12/28/19 Range/Units 01:56 01:49 WBC 3.2 L (4.0-10.5) K/mm3 RBC 4.45 (4.1-5.4) M/mm3 Hgb 13.5 (12.0-16.0) gm/dl Hct 39.9 (35-47) % MCV 89.7 (78-100) fl MCH 30.3 (26-32) pg MCHC 33.8 (32-36) g/dl RDW 12.8 (11.5-14.0) % Plt Count 97 L (150-450) K/mm3 MPV 10.2 (7.5-11.0) fl Gran % 69.9 H (36.0-66.0) % Eos # (Auto) 0.05 (0-0.5) Absolute Lymphs (auto) 0.63 L (1.0-4.6) Absolute Monos (auto) 0.28 (0.0-1.3) Lymphocytes % 19.7 L (24.0-44.0) % Monocytes % 8.8 (0.0-12.0) % Eosinophils % 1.6 (0.00-5.0) % Basophils % 0.0 (0.0-0.4) % Absolute Granulocytes 2.24 (1.4-6.9) Basophils # 0 (0-0.4) PT (9.95-12.35) SECONDS INR (0.8-3.0) APTT (25.3-37.0) SECONDS D-Dimer (215-500) ng/mL Sodium (137-145) mmol/L Potassium (3.5-5.1) mmol/L Chloride (98-107) mmol/L Carbon Dioxide (22-30) mmol/L Anion Gap (5-15) MEQ/L BUN (7-17) mg/dL Creatinine (0.52-1.04) mg/dL Estimated GFR ML/MIN Glucose (74-106) mg/dL Calcium (8.4-10.2) mg/dL Total Bilirubin (0.2-1.3) mg/dL AST (14-36) U/L ALT (0-35) U/L Alkaline Phosphatase (38-126) U/L Troponin I (0.000-0.034) ng/mL NT-Pro-B Natriuret Pep (0-900) pg/mL Serum Total Protein (6.3-8.2) g/dL Albumin (3.5-5.0) g/dL Urine Color STRAW (YELLOW) Urine Appearance CLEAR (CLEAR) Urine pH 6.0 (5-6) Ur Specific Bozman 1.011 (1.005-1.025) Urine Protein NEGATIVE (Negative) Urine Ketones NEGATIVE (NEGATIVE) Urine Blood NEGATIVE (0-5) Nasim/ul Urine Nitrite NEGATIVE (NEGATIVE) Urine Bilirubin NEGATIVE (NEGATIVE) Urine Urobilinogen NEGATIVE (0-1) mg/dL Ur Leukocyte Esterase NEGATIVE (NEGATIVE) Urine WBC (Auto) 3-5 (0-5) /HPF Urine RBC (Auto) 0-2 (0-2) /HPF U Epithel Cells (Auto) NONE (FEW) /HPF Urine Bacteria (Auto) RARE (NEGATIVE) /HPF Urine Mucus (Auto) SLIGHT (NEGATIVE) /HPF Urine Culture Reflexed NO (NO) Urine Glucose NEGATIVE (NEGATIVE) mg/dL Influenza Type A Ag (NEGATIVE) Influenza Type B Ag (NEGATIVE) RSV (PCR) (Negative) Group A Strep Antibody (NEGATIVE) - Progress Progress: improved Air Movement: good Progress Note: D/w pt about lab results and need for further observation and possible cardiology treatment at a higher level hospital-pt wanted to be transferred to [facility]. 12/28/19 05:44 EKG #2 shows no change. Trop increased to 0.289 from 0.103 CXR didn't show anything acute. Lovenox SQ Tx dose given. D/w Dr. Galindo, hospitalist at [place], accepts pt for admission. Dx: ACS Pt currently is CP-free and HAYS-free. VSS. Stable for transfer. 12/28/19 06:49 D-dimer WNL. Blood Culture(s) Obtained: No Antibiotics given: No Discussed with Dr.: Other (Dr. Boggs) Will see patient in: hospital (observation), other (To be admitted to hospitalist) Counseled pt/family regarding: lab results, diagnosis, rad results - Departure Departure Disposition: Transfer Clinical Impression: Acute coronary syndrome Condition: Stable Critical Care Time: Yes Critical Care Time(excluding separately billable procedures): Critical 30-74 mins Referrals: NIRANJAN MARTINEZ [Primary Care Provider] - Instructions: Chest Pain (DC)
[2019-12-28 01:57] LABS: Appearance CLEAR (CLEAR); Bacteria RARE /HPF (NEGATIVE); Bilirubin NEGATIVE (NEGATIVE); Blood NEGATIVE Ery/ul (0-5); Glucose NEGATIVE (NEGATIVE); Ketones NEGATIVE (NEGATIVE); Leukocyte Esterase NEGATIVE (NEGATIVE); Mucus SLIGHT /HPF (NEGATIVE); Nitrite NEGATIVE (NEGATIVE); Protein,Urine Dip NEGATIVE (Negative); RBC 0-2 /HPF (0-2); Specific Gravity 1.011 (1.005-1.025); Urobilinogen NEGATIVE mg/dL (0-1)
[2019-12-28] MEDS ORDERED: BENADRYL 50 MG/ML ONE (01:57)
[2019-12-28] MEDS ORDERED: Compazine 10 MG/2 ML ONE (01:57)
[2019-12-28] MEDS ORDERED: Sodium Chloride 0.9% 1000 ML 1,000 ML ONE (01:57)
[2019-12-28] MEDS ORDERED: solu-MEDROL 125 MG ONE (01:57)
[2019-12-28 01:59] LABS: Absolute Neutrophil Ct (ANC) 2.24 (1.4-6.9); Basophil (Absolute #) 0 (0-0.4); Eosinophil % 1.6 % (0.00-5.0); Eosinophil (Absolute #) 0.05 (0-0.5); Hematocrit 39.9 % (35-47); Hemoglobin 13.5 gm/dl (12.0-16.0); Lymphocyte (Absolute #) 0.63 (1.0-4.6); Lymphocytes % 19.7 % (24.0-44.0); Mean Cell Volume 89.7 fl (78-100); Mean Corpuscular Hemoglobin 30.3 pg (26-32); Mean Corpuscular Hgb Concent. 33.8 g/dl (32-36); Mean Platelet Volume 10.2 fl (7.5-11.0); Monocyte (Absolute #) 0.28 (0.0-1.3); Monocytes % 8.8 % (0.0-12.0); Neutrophil % 69.9 % (36.0-66.0); Platelet Count 97 K/mm3 (150-450); Red Blood Count 4.45 M/mm3 (4.1-5.4); Red Cell Distribution Width 12.8 % (11.5-14.0); White Blood Count 3.2 K/mm3 (4.0-10.5)
[2019-12-28] MEDS: Compazine 10 MG/2 ML IV ONE (02:02)
[2019-12-28] MEDS: Sodium Chloride 0.9% 1000 ML 1,000 ML IV STA (02:02)
[2019-12-28 02:06] LABS: INR 1.05 (0.8-3.0); PROTIME 11.9 SECONDS (9.95-12.35)
[2019-12-28] MEDS: solu-MEDROL 125 MG IV ONE (02:06)
[2019-12-28 02:08] LABS: PTT 34.5 SECONDS (25.3-37.0)
[2019-12-28] MEDS: BENADRYL 50 MG/ML IV ONE (02:17)
[2019-12-28] MEDS ORDERED: DUONEB 0.5-3 MG/3 ml Neb IH ONE (02:18)
[2019-12-28] MEDS: DUONEB 0.5-3 MG/3 ml Neb IH ONE (02:19)
[2019-12-28 02:22] LABS: ALBUMIN 4.1 g/dL (3.5-5.0); ALKALINE PHOSPHATASE 104 U/L (38-126); ANION GAP 9.7 MEQ/L (5-15); BLOOD UREA NITROGEN 14 mg/dL (7-17); CHLORIDE 104 mmol/L (98-107); Calcium 9.7 mg/dL (8.4-10.2); Carbon Dioxide 27 mmol/L (22-30); Creatinine 1 0.65 mg/dL (0.52-1.04); Glucose 107 mg/dL (74-106); Potassium 3.9 mmol/L (3.5-5.1); SGOT/AST 54 U/L (14-36); SGPT/ALT 46 U/L (0-35); SODIUM 137 mmol/L (137-145); Total Protein 7.3 g/dL (6.3-8.2)
[2019-12-28 02:42] LABS: Group A Strep NEGATIVE (NEGATIVE); INFLUENZA A NEGATIVE (NEGATIVE); INFLUENZA B NEGATIVE (NEGATIVE); RESPIRATORY SYNCTIAL VIRUS NEGATIVE (Negative)
[2019-12-28 02:43] LABS: TROPONIN 0.107 ng/mL (0.000-0.034)
[2019-12-28] MEDS ORDERED: ENOXAPARIN SODIUM SQ ONE (05:32)
[2019-12-28] MEDS: ENOXAPARIN SODIUM SQ ONE (05:33)
[2019-12-28 06:51] VITALS: O2SAT 95
[2019-12-28 07:50] VITALS: BP 130/68; PULSE 93
--- NOTE | 2019-12-28 07:56 | XRAY ---
Indication: Productive cough, chest pain, and fever. Comparison: July 07, 2019. Portable chest demonstrates new right base infiltrate versus atelectasis. Remaining lungs clear. Heart and mediastinal structures within normal limits. Bony thorax again demonstrates mild osteopenia, mild dextroscoliosis, thoracolumbar spinal hardware, lower cervical fusion, and epidural stimulator lead. Impression: New right base infiltrate/atelectasis. Correlate clinically. Comment: Right base opacity not reported by interpreting ER clinician. Telephone report given to Dr. Ravi in the ER at 0749 hours on December 28, 2019.
== END 2019-12-28 07:55 | disposition short-term general hospital (02) ==
LOC: ED 00:49
DX: I24.9 Acute ischemic heart disease, unspecified (principal); Z79.899 Other long term (current) drug therapy; G62.9 Polyneuropathy, unspecified; E78.00 Pure hypercholesterolemia, unspecified; M81.0 Age-related osteoporosis without current pathological fracture; M06.9 Rheumatoid arthritis, unspecified
CPT/HCPCS: 36000; 36415; 71045; 80053; 81001; 83880; 84484; 85025; 85379; 85610; 85730; 87631; 87651; 93005; 93041; 94150; 94640; 96360; 96372; 96374; 96375; 99285; 99291; J1200; J1650; J2930; A9270-GY

== ENCOUNTER 2021-02-12 15:38 | Emergency (ER) | payer MEDICARE ==
[2021-02-12] MEDS ORDERED: PERCOCET TABLET 5/325MG PO ONE (15:56)
[2021-02-12] MEDS ORDERED: PERCOCET TABLET 5/325MG ONE (16:01)
--- NOTE | 2021-02-12 16:12 | ERPHSYRPT ---
- History of Present Illness Time Seen by Provider: 02/12/21 15:40 Source: patient Exam Limitations: no limitations Patient Subjective Stated Complaint: R wrist, elbow pain after fall yesterday Triage Nursing Assessment: pt to ED c/o R wrist and elbow pain after mechanical fall yesterday. pt rates 05/14 pain. reports she was pain free after fall but pain began at 0300 this am. R wrist is noteably swollen, limited wrist ROM d/t severe pain. full ROM with elbow with mild pain. skin pwd distal to injury. Physician History: 60 years old [id number] female presented in the ER with chief complaint of right wrist and elbow pain after she tripped over some toys at home and fell on concrete and tried to catch herself with outstretched hand yesterday. She is complaining of dull aching to sharp moderate intensity pain more in the wrist than elbow. Pain is aggravated with movements and better with being still. Limiting movements of wrist with associated swelling. Intact movements at elbow. No difficulty movements of fingers. No tingling numbness in the fingers. No open sores/wounds. Did not hit her head. No loss of consciousness. No injury anywhere else. Occurred: yesterday Method of Injury: fell Quality: sharpness Severity of Pain-Max: moderate Severity of Pain-Current: moderate Extremities Pain Location: elbow: right, wrist: right Modifying Factors: Improves With: immobilization, rest. Worsens With: movement Allergies/Adverse Reactions: celecoxib [From Celebrex] Allergy (Verified 02/12/21 15:54) pregabalin [From Lyrica] Allergy (Verified 02/12/21 15:54) vancomycin Allergy (Verified 02/12/21 15:54) acetaminophen [From Vicodin] Adverse Reaction (Verified 02/12/21 15:54) hydrocodone [From Vicodin] Adverse Reaction (Verified 02/12/21 16:08) pt states able to take hydrocodone alone, just not able to take norco/vicodin Home Medications: Atorvastatin Calcium [Lipitor] 40 mg PO HS 09/13/17 [History] Ergocalciferol (Vitamin D2) [Vitamin D] 50,000 mg PO UD 09/13/17 [History] Furosemide 20 mg [Lasix 20 mg] 20 mg PO DAILY PRN PRN 09/13/17 [History] Gabapentin 600 mg PO QID 09/13/17 [History] Hydroxychloroquine Sulfate [Plaquenil] 200 mg PO BID 09/13/17 [History] Trazodone HCl 50 mg [Desyrel 50 mg] 50 mg PO HS 09/13/17 [History] Alprazolam [Xanax] 0.5 mg HS 05/04/19 [History] Colestipol HCl [Colestid] 1 gm PO BID 05/04/19 [History] Fluoxetine HCl 40 mg PO BID 05/04/19 [History] Infliximab-Dyyb [Inflectra] 1 dose IV INFUS UD 05/04/19 [History] Multivitamin,Therapeutic [Thera-Tabs] 1 each PO DAILY 05/04/19 [History] PANTOPRAZOLE 40 mg Tablet [Protonix 40MG Tablet] 40 mg PO DAILY 05/04/19 [History] Ranitidine HCl 150 mg PO BID 05/04/19 [History] Ferrous Sulfate [Ferosul] 325 mg PO DAILY 07/07/19 [History] Hx Tetanus, Diphtheria Vaccination/Date Given: Yes (less than three years ago) Hx Influenza Vaccination/Date Given: Yes Hx Pneumococcal Vaccination/Date Given: No Immunizations Up to Date: Yes Travel Risk - International Travel Have you traveled outside of the country in past 3 weeks: No - Coronavirus Screening Are you exhibiting any of the following symptoms?: No Close contact with a COVID-19 positive Pt in past 14-21 Days: No - Vaccine Status Have you recieved a Covid-19 vaccination: No - Review of Systems Constitutional: No Symptoms Eyes: No Symptoms Ears, Nose, & Throat: No Symptoms Respiratory: No Symptoms Cardiac: No Symptoms Abdominal/Gastrointestinal: No Symptoms Genitourinary Symptoms: No Symptoms Musculoskeletal: Injury, Joint Pain, Joint Swelling Skin: No Symptoms Neurological: No Symptoms Psychological: No Symptoms Endocrine: No Symptoms Hematologic/Lymphatic: No Symptoms Immunological/Allergic: No Symptoms - Past Medical History Pertinent Past Medical History: Yes Neurological History: Migraines, Peripheral Neuropathy Cardiac History: High Cholesterol Respiratory History: No Pertinent History Endocrine Medical History: No Pertinent History Musculoskeletal History: Osteoarthritis, Osteoporosis, Rheumatoid Arthritis GI Medical History: GERD, Irritable Bowel Psycho-Social History: Depression Female Reproductive Disorders: Abnormal Uterine Bleeding Other Medical History: RA, spinal stimulator to lt hip - Past Surgical History Past Surgical History: Yes Gastrointestinal: Appendectomy, Cholecystectomy Musculoskeletal: Orthopedic Surgery Female Surgical History: Hysterectomy Other Surgical History: sinus, bilateral knee replacements, back surg, neck surg - Social History Smoking Status: Never smoker Exposure to second hand smoke: No Drug Use: none Patient Lives Alone: No - Female History Hx Now: No - Nursing Vital Signs Nursing Vital Signs: Initial Vital Signs Temperature 98.9 F 02/12/21 15:47 Pulse Rate 79 02/12/21 15:47 Respiratory Rate 20 02/12/21 15:47 Blood Pressure 163/81 02/12/21 15:47 O2 Sat by Pulse Oximetry 99 02/12/21 15:47 Pain Scale Pain Intensity 7 - Physical Exam General Appearance: no apparent distress, alert Neck Exam: normal inspection, non-tender, supple, full range of motion Cardiovascular/Respiratory Exam: normal breath sounds, regular rate/rhythm Abdominal Exam: non-tender, soft Back Exam: normal inspection, normal range of motion Shoulder Exam: normal inspection, non-tender, no evidence of injury Elbow/Forearm Exam: normal inspection, no evidence of injury, normal ROM, pain, soft tissue tenderness Wrist Exam: bone tenderness (Distal radius), limited ROM (Right), pain, soft tissue tenderness, swelling Hand Exam: swelling Neuro/Tendon Exam: normal sensation, normal motor functions Mental Status Exam: alert, oriented x 3, cooperative Skin Exam: normal color SpO2 Interpretation: normal SpO2: 99 O2 Delivery: Room Air Ordered Tests: Active Orders 24 hr Category Date Time Status ELBOW (MINIMUM 3 VIEWS) Stat Exams 02/12/21 16:44 Taken WRIST (MIN 3 VIEWS) Stat Exams 02/12/21 16:44 Taken Medication Summary Discontinued Medications Generic Name Dose Route Start Last Admin Trade Name Freq PRN Reason Stop Dose Admin Oxycodone/Acetaminophen 1 tab 02/12/21 15:56 02/12/21 16:02 Percocet Tablet 5/325mg PO 02/12/21 15:57 1 tab STAT ONE Administration Oxycodone/Acetaminophen Confirm 02/12/21 16:01 Percocet Tablet 5/325mg Administered 02/12/21 16:02 Dose 1 tab .ROUTE .STK-MED ONE - Progress Progress: improved, pain not gone completely, re-examined Progress Note: 02/12/21 16:52 She is given oral pain medication which did help with the pain. She does have distal radial fracture and questionable radial head fracture in the elbow. Placed in a sugar tong splint, recommended outpatient Ortho follow-up. Counseled pt/family regarding: diagnosis, need for follow-up, rad results - Departure Departure Disposition: Home Clinical Impression: Right wrist fracture Qualifiers: Encounter type: initial encounter Fracture type: closed Qualified Code(s): S62.101A - Fracture of unspecified carpal bone, right wrist, initial encounter for closed fracture Fall Qualifiers: Encounter type: initial encounter Qualified Code(s): W19.XXXA - Unspecified fall, initial encounter Condition: Stable Critical Care Time: No Referrals: BARBARA PAGE NP [Primary Care Provider] - (In 2 days for reeval uation) ORTHO - SOWMYA TAYLOR NP [NON-STAFF PHY W/O PRIVILEGES] - (In 2 days for reevaluation) Instructions: Common Wrist Injuries (DC) Additional Instructions: Take pain medications as needed. Follow-up with primary care and Ortho clinic for reevaluation early next week. Apply ice. Return to ER for worsening pain swelling difficulty movements, numbness tingling/bluish discoloration of fingers. Prescriptions: Oxycodone HCl/Acetaminophen [Percocet 5-325 mg Tablet] 1 each PO Q6H PRN PRN #10 tablet MDD 4 PRN Reason: Pain
[2021-02-12 17:26] VITALS: BP 172/60; PULSE 86; O2SAT 96
--- NOTE | 2021-02-12 20:06 | XRAY ---
Indication: Pain following fall. Comparison: None 3 view right elbow demonstrates osteopenia and tiny coronoid spur. No other bony, articular, or soft tissue abnormalities.
--- NOTE | 2021-02-12 20:06 | XRAY ---
Indication: Pain following fall. Comparison: None 3 view right wrist demonstrates nondisplaced distal radius corner fracture laterally with intra-articular extension. Elsewhere osteopenia and moderate 1st metacarpal multangular scaphoid degenerative changes.
== END 2021-02-12 17:27 | disposition home or self-care (01) ==
LOC: ED 15:38
DX: S62.101A Fracture of unspecified carpal bone, right wrist, initial encounter for closed fracture (principal); W01.0XXA Fall on same level from slipping, tripping and stumbling without subsequent striking against object, initial encounter; Z79.899 Other long term (current) drug therapy; E78.00 Pure hypercholesterolemia, unspecified
CPT/HCPCS: 73080; 73110; 99284; A9270-GY

== ENCOUNTER 2021-07-29 14:14 | Emergency (ER) | payer MEDICARE ==
--- NOTE | 2021-07-29 14:18 | ERPHSYRPT ---
- History of Present Illness Time Seen by Provider: 07/29/21 14:18 Source: patient Exam Limitations: no limitations Physician History: This is a 61-year-old white female patient of nurse practitioner Mariia who has a history of gastroesophageal reflux disease, migraine headaches, peripheral neuropathy, rheumatoid arthritis, elevated cholesterol, depression and frequent falls who fell prior to arrival down steps and landed on her left shoulder. She has pain and decreased movement in the left shoulder. She did not hit her head. She did not lose consciousness. She has no neck pain. She is not short of breath. She has no abdominal pain. Occurred: just prior to arrival Reason for Fall: tripped Injuries/Pain Location: upper extremity Loss of Consciousness: no loss of consciousness Severity of Pain-Max: moderate Severity of Pain-Current: mild (to moderate) Modifying Factors: Improves With: movement Associated Symptoms (Fall): denies symptoms, No back pain, No headache, No neck pain Allergies/Adverse Reactions: celecoxib [From Celebrex] Allergy (Verified 02/12/21 15:54) pregabalin [From Lyrica] Allergy (Verified 02/12/21 15:54) vancomycin Allergy (Verified 02/12/21 15:54) acetaminophen [From Vicodin] Adverse Reaction (Verified 02/12/21 15:54) hydrocodone [From Vicodin] Adverse Reaction (Verified 02/12/21 16:08) pt states able to take hydrocodone alone, just not able to take norco/vicodin Home Medications: Atorvastatin Calcium [Lipitor] 40 mg PO HS 09/13/17 [History] Ergocalciferol (Vitamin D2) [Vitamin D] 50,000 mg PO UD 09/13/17 [History] Furosemide 20 mg [Lasix 20 mg] 20 mg PO DAILY PRN PRN 09/13/17 [History] Gabapentin 600 mg PO QID 09/13/17 [History] Hydroxychloroquine Sulfate [Plaquenil] 200 mg PO BID 09/13/17 [History] Trazodone HCl 50 mg [Desyrel 50 mg] 50 mg PO HS 09/13/17 [History] Alprazolam [Xanax] 0.5 mg HS 05/04/19 [History] Colestipol HCl [Colestid] 1 gm PO BID 05/04/19 [History] Fluoxetine HCl 40 mg PO BID 05/04/19 [History] Infliximab-Dyyb [Inflectra] 1 dose IV INFUS UD 05/04/19 [History] Multivitamin,Therapeutic [Thera-Tabs] 1 each PO DAILY 05/04/19 [History] PANTOPRAZOLE 40 mg Tablet [Protonix 40MG Tablet] 40 mg PO DAILY 05/04/19 [History] Ranitidine HCl 150 mg PO BID 05/04/19 [History] Ferrous Sulfate [Ferosul] 325 mg PO DAILY 07/07/19 [History] Hx Tetanus, Diphtheria Vaccination/Date Given: Yes (less than three years ago) Hx Influenza Vaccination/Date Given: Yes Hx Pneumococcal Vaccination/Date Given: No Travel Risk - International Travel Have you traveled outside of the country in past 3 weeks: No - Coronavirus Screening Are you exhibiting any of the following symptoms?: No Close contact with a COVID-19 positive Pt in past 14-21 Days: No - Vaccine Status Have you recieved a Covid-19 vaccination: No - Review of Systems Constitutional: No Symptoms Eyes: No Symptoms Ears, Nose, & Throat: No Symptoms Respiratory: No Symptoms Cardiac: No Symptoms Abdominal/Gastrointestinal: No Symptoms Genitourinary Symptoms: No Symptoms Musculoskeletal: Fall, Injury (left shoulder) Skin: No Symptoms Neurological: No Symptoms Psychological: No Symptoms Endocrine: No Symptoms Hematologic/Lymphatic: No Symptoms Immunological/Allergic: No Symptoms All Other Systems: Reviewed and Negative - Past Medical History Pertinent Past Medical History: Yes Neurological History: Migraines, Peripheral Neuropathy Cardiac History: High Cholesterol Respiratory History: No Pertinent History Endocrine Medical History: No Pertinent History Musculoskeletal History: Osteoarthritis, Osteoporosis, Rheumatoid Arthritis GI Medical History: GERD, Irritable Bowel Psycho-Social History: Depression Female Reproductive Disorders: Abnormal Uterine Bleeding Other Medical History: RA, spinal stimulator to lt hip - Past Surgical History Past Surgical History: Yes Gastrointestinal: Appendectomy, Cholecystectomy Musculoskeletal: Orthopedic Surgery Female Surgical History: Hysterectomy Other Surgical History: sinus, bilateral knee replacements, back surg, neck surg - Social History Smoking Status: Never smoker Exposure to second hand smoke: No Drug Use: none Patient Lives Alone: No - Nursing Vital Signs Nursing Vital Signs: Initial Vital Signs Temperature 97.6 F 07/29/21 14:23 Pulse Rate 68 07/29/21 14:23 Respiratory Rate 22 07/29/21 14:23 Blood Pressure 142/98 07/29/21 14:23 O2 Sat by Pulse Oximetry 98 07/29/21 14:23 Pain Scale Pain Intensity 5 - Monae Coma Score Best Eye Response (Monae): (4) open spontaneously Best Verbal Response (Monae): (5) oriented Best Motor Response (Twining): (6) obeys commands Monae Total: 15 - Physical Exam General Appearance: no apparent distress, alert Head Injury: no evidence of injury Eye Exam: PERRL/EOMI, eyes nml inspection ENT Exam: airway nml, nml ext.inspection Neck Exam: supple, trachea midline, full range of motion, normal alignment, normal inspection Respiratory/Chest Exam: chest tenderness, respiratory distress Gastrointestinal Exam: No tenderness Rectal Exam: not done Back Exam: normal inspection, normal range of motion, No CVA tenderness, No vertebral tenderness Extremity Exam: pelvis stable, bony point tenderness (mid humerus pain), tenderness Neurologic Exam: alert, oriented x 3, cooperative, building construction estimator II-XII nml as tested, normal mood/affect, nml cerebellar function, nml station & gait, sensation nml Skin Exam: normal color, warm, dry SpO2 Interpretation: normal O2 Delivery: Room Air - Course Nursing assessment & vital signs reviewed: Yes Ordered Tests: Active Orders 24 hr Category Date Time Status CLAVICLE Stat Exams 07/29/21 14:59 Completed HUMERUS Stat Exams 07/29/21 14:59 Completed SHOULDER Stat Exams 07/29/21 14:59 Completed Medication Summary Discontinued Medications Generic Name Dose Route Start Last Admin Trade Name Freq PRN Reason Stop Dose Admin Oxycodone/Acetaminophen Confirm 07/29/21 14:53 Percocet Tablet 5/325mg Administered 07/29/21 14:54 Dose 1 tab .ROUTE .STK-MED ONE Oxycodone/Acetaminophen 1 tab 07/29/21 14:58 07/29/21 15:00 Percocet Tablet 5/325mg PO 07/29/21 14:59 1 tab STAT STA Administration - Progress Progress: improved, pain not gone completely Progress Note: 07/29/21 16:49 X-ray left humerus shows no acute fracture dislocation. X-ray left shoulder shows no acute fracture dislocation. X-ray of left clavicle shows subtle acute oblique fracture of the lateral third of the left clavicle. Counseled pt/family regarding: diagnosis, need for follow-up, rad results - Departure Departure Disposition: Home Clinical Impression: Closed left clavicular fracture Condition: Stable Critical Care Time: No Referrals: BARBARA PAGE NP [Primary Care Provider] - Additional Instructions: Ice pack to area 3 times a day for the next 48 hours. Follow-up with [facility] clinic on 08/01/2021, for further management and instructions. Wear sling for comfort. Prescriptions: Oxycodone HCl/Acetaminophen [Percocet 5-325 mg Tablet] 1 each PO Q8H PRN PRN #8 tablet MDD 3 PRN Reason: Pain
[2021-07-29 14:28] VITALS: O2SAT 98
[2021-07-29] MEDS ORDERED: PERCOCET TABLET 5/325MG ONE (14:53)
[2021-07-29] MEDS ORDERED: PERCOCET TABLET 5/325MG PO STA (14:58)
[2021-07-29 15:43] VITALS: PULSE 69
--- NOTE | 2021-07-29 16:24 | XRAY ---
Exam: Two-view left clavicle study from 07/29/2021. Comparison: None. Indication: 61-year-old female with left clavicle, shoulder, and arm pain subsequent to a fall. Findings: AP and AP cephalad angled views of the left clavicle reveal a subtle fracture of the lateral aspect of the left clavicle which displays about 2 mm cortical step-off deformity along the superior margin of the fracture. The left acromioclavicular joint space appears unremarkable. There is evidence of prior lower anterior cervical fusion with a small orthopedic metallic plate and 4 adjoining screws. The proximal end of a couple Wren rods is partially seen within the upper thoracic spine. Impression: 1. Subtle, acute shallow oblique fracture of the lateral third of the left clavicle with about 2 mm cortical step-off deformity at the superior margin of the fracture site on one of the images. 2. The left acromioclavicular joint space appears unremarkable.
--- NOTE | 2021-07-29 16:28 | XRAY ---
Exam: 3 view left shoulder series from 07/29/2021. Comparison: 3 view left shoulder series from 07/07/2019. Indication: 61-year-old female fell, complains of left shoulder pain. Findings: AP internal rotation, AP external rotation, and Y views of left shoulder were obtained. The known fracture at the lateral aspect the left clavicle is more difficult to see on the left shoulder radiographs. It appears essentially nondisplaced. I see no acute fracture or dislocation of the left shoulder. A tiny spur is seen along the inferior medial margin of the left humeral head. There appear to be 2 thoracic Wren rods. The left domi appears to be broken within the mid thoracic area. In retrospect, this is unchanged. Impression: 1. No acute fracture or dislocation of the left shoulder is seen. Known fracture of the lateral aspect of the left clavicle is more difficult to identify on the left shoulder films than the left clavicle films. See above.
--- NOTE | 2021-07-29 16:32 | XRAY ---
Exam: Left humerus films from 07/29/2021. Comparison: None. Indication: 61-year-old female fell, complains of left arm pain. Findings: 4 images consisting of AP internal rotation and AP external rotation views of the left humerus were obtained. I see no acute fracture of the left humerus. Subtle acute fracture of the lateral aspect of the left clavicle is again seen. The bones are demineralized. Impression: 1. No acute fracture of the left humerus is seen.
[2021-07-29 16:56] VITALS: BP 147/107
== END 2021-07-29 17:08 | disposition home or self-care (01) ==
LOC: ED 14:14
DX: S42.002A Fracture of unspecified part of left clavicle, initial encounter for closed fracture (principal); K21.9 Gastro-esophageal reflux disease without esophagitis; Z79.899 Other long term (current) drug therapy; E78.00 Pure hypercholesterolemia, unspecified
CPT/HCPCS: 73000; 73030; 73060; 99284; A9270-GY

== ENCOUNTER 2023-01-26 23:21 | Emergency (ER) | payer MEDICARE ==
--- NOTE | 2023-01-26 23:24 | ERPHSYRPT ---
- History of Present Illness Time Seen by Provider: 01/26/23 23:24 Historian: patient, family Exam Limitations: no limitations Physician History: This is an obese 62-year-old white female who is a patient of nurse practitioner Mariia and presents with coughing leading to substernal central sharp stabbing chest pain. She also has achiness to bilateral shoulders and into her back. She has had the symptoms in the last 2 weeks and was seen by outpatient clinic within the week and had negative viral studies. Patient does see a fiscal clerk for cardiac septal defect that she has had chronically. She is never been diagnosed with coronary artery disease. This evening the coughing was worse and therefore she started having chest pain associated with coughing. Patient presents in a very anxious state. Patient has a history of gastroesophageal reflux disease, migraine headache, anxiety disorders, depression, peripheral neuropathy, rheumatoid arthritis and hyperlipidemia. Timing/Duration: week(s) (2), worse Activities at Onset: sleep Quality: sharpness Location: substernal, central Chest Pain Radiation: arm, back Severity of Pain-Max: moderate Severity of Pain-Current: mild (To moderate) Modifying Factors: Improves With: coughing Associated Symptoms: denies symptoms, shortness of breath (She is coughing), cough Nitro Today/Relief: no nitro taken today Aspirin Treatment Today: no aspirin today Allergies/Adverse Reactions: celecoxib [From Celebrex] Allergy (Verified 01/26/23 23:23) pregabalin [From Lyrica] Allergy (Verified 01/26/23 23:23) vancomycin Allergy (Verified 01/26/23 23:23) acetaminophen [From Vicodin] Adverse Reaction (Verified 01/26/23 23:23) hydrocodone [From Vicodin] Adverse Reaction (Verified 01/26/23 23:23) pt states able to take hydrocodone alone, just not able to take norco/vicodin Home Medications: Atorvastatin Calcium [Lipitor] 40 mg PO HS 09/13/17 [History] Ergocalciferol (Vitamin D2) [Vitamin D] 50,000 mg PO UD 09/13/17 [History] Furosemide 20 mg [Lasix 20 mg] 20 mg PO DAILY PRN PRN 09/13/17 [History] Gabapentin 600 mg PO QID 09/13/17 [History] Hydroxychloroquine Sulfate [Plaquenil] 200 mg PO BID 09/13/17 [History] Trazodone HCl 50 mg [Desyrel 50 mg] 50 mg PO HS 09/13/17 [History] ALPRAZolam [Xanax] 0.5 mg HS 05/04/19 [History] Colestipol HCl [Colestid] 1 gm PO BID 05/04/19 [History] Fluoxetine HCl 40 mg PO BID 05/04/19 [History] Infliximab-Dyyb [Inflectra] 1 dose IV INFUS UD 05/04/19 [History] Multivitamin,Therapeutic [Thera-Tabs] 1 each PO DAILY 05/04/19 [History] PANTOPRAZOLE 40 mg Tablet [Protonix 40MG Tablet] 40 mg PO DAILY 05/04/19 [History] raNITIdine HCL [Ranitidine HCl] 150 mg PO BID 05/04/19 [History] Ferrous Sulfate [Ferosul] 325 mg PO DAILY 07/07/19 [History] Hx Tetanus, Diphtheria Vaccination/Date Given: Yes (less than three years ago) Hx Influenza Vaccination/Date Given: Yes Hx Pneumococcal Vaccination/Date Given: No Travel Risk - International Travel Have you traveled outside of the country in past 3 weeks: No - Coronavirus Screening Are you exhibiting any of the following symptoms?: Yes Symptoms: Cough: New Onset, Shortness of Breath (Coughing) Close contact with a COVID-19 positive Pt in past 14-21 Days: No - Vaccine Status Have you recieved a Covid-19 vaccination: No - Review of Systems Constitutional: No Symptoms Eyes: No Symptoms Ears, Nose, & Throat: No Symptoms Respiratory: Cough Cardiac: Chest Pain Abdominal/Gastrointestinal: No Symptoms (With coughing) Genitourinary Symptoms: No Symptoms Musculoskeletal: No Symptoms Skin: No Symptoms Neurological: No Symptoms Psychological: No Symptoms Endocrine: No Symptoms Hematologic/Lymphatic: No Symptoms Immunological/Allergic: No Symptoms All Other Systems: Reviewed and Negative - Past Medical History Pertinent Past Medical History: Yes Neurological History: Migraines, Peripheral Neuropathy Cardiac History: High Cholesterol, Hypertension Respiratory History: No Pertinent History Endocrine Medical History: No Pertinent History Musculoskeletal History: Osteoarthritis, Osteoporosis, Rheumatoid Arthritis GI Medical History: GERD, Irritable Bowel Psycho-Social History: Depression Female Reproductive Disorders: Abnormal Uterine Bleeding Other Medical History: spinal stimulator - Past Surgical History Past Surgical History: Yes Gastrointestinal: Appendectomy, Cholecystectomy Musculoskeletal: Orthopedic Surgery Female Surgical History: Hysterectomy Other Surgical History: sinus, bilateral knee replacements, back surg, neck surg - Social History Smoking Status: Never smoker Exposure to second hand smoke: No Drug Use: none Patient Lives Alone: No - Nursing Vital Signs Nursing Vital Signs: Initial Vital Signs Temperature 97.8 F 01/26/23 23:21 Pulse Rate 81 01/26/23 23:21 Respiratory Rate 28 H 01/26/23 23:21 O2 Sat by Pulse Oximetry 100 01/26/23 23:21 Pain Scale Pain Intensity 7 - Physical Exam General Appearance: no apparent distress, alert, anxiety, obese Eye Exam: PERRL/EOMI, eyes nml inspection Ears, Nose, Throat Exam: normal ENT inspection, moist mucous membranes Neck Exam: normal inspection, non-tender, supple, full range of motion Respiratory Exam: normal breath sounds, lungs clear, airway intact, No chest tenderness, No respiratory distress Cardiovascular Exam: regular rate/rhythm, normal heart sounds, normal peripheral pulses Gastrointestinal/Abdomen Exam: soft, normal bowel sounds, No tenderness Pelvic Exam: not done Rectal Exam: not done Back Exam: normal inspection, normal range of motion, No CVA tenderness, No vertebral tenderness Extremity Exam: normal inspection, normal range of motion, pelvis stable Neurologic Exam: alert, oriented x 3, cooperative, unscrambler II-XII nml as tested, normal mood/affect Skin Exam: normal color, warm, dry SpO2 Interpretation: normal O2 Delivery: Room Air Ordered Tests: Active Orders 24 hr Category Date Time Status Society Reporter STAT Care 01/26/23 23:27 Active EKG-ER Only STAT Care 01/26/23 23:27 Active IV Insertion STAT Care 01/26/23 23:27 Active Pulse Oximetry (ED) STAT Care 01/26/23 23:27 Active CHEST 1 VIEW (PORTABLE) Stat Exams 01/26/23 23:27 Taken CBC W DIFF Stat Lab 01/26/23 23:35 Completed CMP Stat Lab 01/26/23 23:35 Completed D-DIMER QUANTITATIVE Stat Lab 01/26/23 23:35 Completed TROPONIN Q4H Lab 01/26/23 23:35 Completed TROPONIN Q4H Lab 01/27/23 03:30 Ordered TROPONIN Q4H Lab 01/27/23 07:30 Ordered Medication Summary Discontinued Medications Generic Name Dose Route Start Last Admin Trade Name Haily PRN Reason Stop Dose Admin Acetaminophen/Codeine Phosphate 10 ml 01/27/23 01:02 Codeine Phosphate/Apap 5 Ml 5 Ml Udcup PO 01/27/23 01:03 STAT ONE Aspirin 324 mg 01/26/23 23:27 01/26/23 23:36 Aspirin 81 Mg Tab.Chew PO 01/26/23 23:28 324 mg STAT ONE Administration Methylprednisolone Sodium 0 mg 01/27/23 01:01 Succinate 125 mg/ Sterile IV 01/27/23 01:02 Water 2 ml STAT ONE Lab/Rad Data: Laboratory Result Diagrams 01/26/23 23:35 01/26/23 23:35 Laboratory Results 01/26/23 01/26/23 01/26/23 Range/Units 23:35 23:35 23:35 WBC (4.0-10.5) x10^3/uL RBC (4.1-5.4) x10^6/uL Hgb (12.0-16.0) g/dL Hct (35-47) % MCV (78-100) fL MCH (26-32) pg MCHC (32-36) g/dL RDW (11.5-14.0) % Plt Count (150-450) x10^3/uL MPV (7.5-11.0) fL Gran % (36.0-66.0) % Immature Gran % (Auto) (0.00-0.4) % Nucleat RBC Rel Count (0.00-0.1) % Eos # (Auto) (0-0.5) x10^3/uL Immature Gran # (Auto) (0.00-0.03) x10^3u/L Absolute Lymphs (auto) (1.0-4.6) x10^3/uL Absolute Monos (auto) (0.0-1.3) x10^3/uL Absolute Nucleated RBC (0.00-0.01) x10^3u/L Lymphocytes % (24.0-44.0) % Monocytes % (0.0-12.0) % Eosinophils % (0.00-5.0) % Basophils % (0.0-0.4) % Absolute Granulocytes (1.4-6.9) x10^3/uL Basophils # (0-0.4) x10^3/uL D-Dimer 0.39 (0.0-0.50) mg/L Sodium 136 L (137-145) mmol/L Potassium 4.0 (3.5-5.1) mmol/L Chloride 101 (98-107) mmol/L Carbon Dioxide 20 L (22-30) mmol/L Anion Gap 19.1 H (5-15) MEQ/L BUN 17 (7-17) mg/dL Creatinine 0.58 (0.52-1.04) mg/dL Estimated GFR > 60.0 ML/MIN Glucose 110 H (74-106) mg/dL Calcium 10.2 (8.4-10.2) mg/dL Total Bilirubin 0.50 (0.2-1.3) mg/dL AST 37 H (14-36) U/L ALT 22 (0-35) U/L Alkaline Phosphatase 132 H (38-126) U/L Troponin I < 0.012 (0.000-0.034) ng/mL Serum Total Protein 7.5 (6.3-8.2) g/dL Albumin 4.5 (3.5-5.0) g/dL 01/26/23 Range/Units 23:35 WBC 6.2 (4.0-10.5) x10^3/uL RBC 4.60 (4.1-5.4) x10^6/uL Hgb 10.3 L (12.0-16.0) g/dL Hct 33.4 L (35-47) % MCV 72.6 L (78-100) fL MCH 22.4 L (26-32) pg MCHC 30.8 L (32-36) g/dL RDW 17.8 H (11.5-14.0) % Plt Count 183 (150-450) x10^3/uL MPV 9.6 (7.5-11.0) fL Gran % 70.1 H (36.0-66.0) % Immature Gran % (Auto) 0.2 (0.00-0.4) % Nucleat RBC Rel Count 0.0 (0.00-0.1) % Eos # (Auto) 0.02 (0-0.5) x10^3/uL Immature Gran # (Auto) 0.01 (0.00-0.03) x10^3u/L Absolute Lymphs (auto) 1.47 (1.0-4.6) x10^3/uL Absolute Monos (auto) 0.35 (0.0-1.3) x10^3/uL Absolute Nucleated RBC 0.00 (0.00-0.01) x10^3u/L Lymphocytes % 23.6 L (24.0-44.0) % Monocytes % 5.6 (0.0-12.0) % Eosinophils % 0.3 (0.00-5.0) % Basophils % 0.2 (0.0-0.4) % Absolute Granulocytes 4.37 (1.4-6.9) x10^3/uL Basophils # 0.01 (0-0.4) x10^3/uL D-Dimer (0.0-0.50) mg/L Sodium (137-145) mmol/L Potassium (3.5-5.1) mmol/L Chloride (98-107) mmol/L Carbon Dioxide (22-30) mmol/L Anion Gap (5-15) MEQ/L BUN (7-17) mg/dL Creatinine (0.52-1.04) mg/dL Estimated GFR ML/MIN Glucose (74-106) mg/dL Calcium (8.4-10.2) mg/dL Total Bilirubin (0.2-1.3) mg/dL AST (14-36) U/L ALT (0-35) U/L Alkaline Phosphatase (38-126) U/L Troponin I (0.000-0.034) ng/mL Serum Total Protein (6.3-8.2) g/dL Albumin (3.5-5.0) g/dL - Progress Progress: improved, re-examined Air Movement: good Progress Note: 01/27/23 01:10 This x-ray was interpreted by me and there is evidence of right basilar atelectasis versus early infiltrate. This patient's medical issue is 1 of moderate complexity. The level of complexity and the work-up performed was based on review of the patient's past medical history, medication list, drug allergy list, history of present illness, and physical findings on examination. The work-up included chest x-ray, placement of an intravenous line, providing the patient with intravenous Solu- Medrol, Tylenol with codeine elixir dose, obtaining a CBC, twelve-lead EKG, CMP, troponin level, D-dimer level, BNP level. Patient appears to have possibly an early infiltrate in the right lower lung. We we will provide her with a dose of Rocephin here in the emergency department and Z-Jonny with steroid and Tylenol with codeine elixir prescription at her pharmacy. This will be her discharge plan and this was discussed with her and her son. Antibiotics given: Yes Counseled pt/family regarding: lab results, diagnosis, need for follow-up, rad results Medical Desision Making - Independent Historian Additional History obtained from: Child - Discussion of managment Reviewed:: Test results Agreed on:: Treatment plan, need for follow-up - Diagnostic Testing Diagnostic test were ordered, analyzed, and reviewed by me: Yes Radiological Interpretation: Interpreted by me - Risk of complications The pt has a mod risk of morbidity or mortality based on: Need for prescription drug management - Departure Departure Disposition: Home Clinical Impression: Right lower lobe pulmonary infiltrate, URI (upper respiratory infection) Condition: Stable Critical Care Time: No Referrals: BARBARA PAGE, [facility] [Primary Care Provider] - Follow up/PCP as directed Additional Instructions: Take your medication as prescribed. Follow-up with your prescribing physician for further evaluation management. Stop your amoxicillin. Take the Z-Jonny instead. Prescriptions: Codeine Phosphate/APAP [Tylenol W/ Codeine 118 ml] 10 ml PO Q8H PRN PRN #120 ml MDD 30 mL PRN Reason: Cough Azithromycin 250 mg [Zithromax 250 MG TABLET] 250 mg PO ZPACK #6 tablet
[2023-01-26] MEDS ORDERED: BABY ASPIRIN 81 MG CHEW PO ONE (23:27)
[2023-01-26 23:43] LABS: Absolute Neutrophil Ct (ANC) 4.37 x10^3/uL (1.4-6.9); BASOPHIL % 0.2 % (0.0-0.4); Basophil (Absolute #) 0.01 x10^3/uL (0-0.4); Eosinophil % 0.3 % (0.00-5.0); Eosinophil (Absolute #) 0.02 x10^3/uL (0-0.5); Hematocrit 33.4 % (35-47); Hemoglobin 10.3 g/dL (12.0-16.0); IMMATURE GRAN # 0.01 x10^3u/L (0.00-0.03); IMMATURE GRAN % 0.2 % (0.00-0.4); Lymphocyte (Absolute #) 1.47 x10^3/uL (1.0-4.6); Lymphocytes % 23.6 % (24.0-44.0); Mean Cell Volume 72.6 fL (78-100); Mean Corpuscular Hemoglobin 22.4 pg (26-32); Mean Corpuscular Hgb Concent. 30.8 g/dL (32-36); Mean Platelet Volume 9.6 fL (7.5-11.0); Monocyte (Absolute #) 0.35 x10^3/uL (0.0-1.3); Monocytes % 5.6 % (0.0-12.0); Neutrophil % 70.1 % (36.0-66.0); Platelet Count 183 x10^3/uL (150-450); Red Cell Distribution Width 17.8 % (11.5-14.0); White Blood Count 6.2 x10^3/uL (4.0-10.5)
[2023-01-27 00:02] LABS: ALBUMIN 4.5 g/dL (3.5-5.0); ALKALINE PHOSPHATASE 132 U/L (38-126); ANION GAP 19.1 MEQ/L (5-15); BLOOD UREA NITROGEN 17 mg/dL (7-17); CHLORIDE 101 mmol/L (98-107); Calcium 10.2 mg/dL (8.4-10.2); Carbon Dioxide 20 mmol/L (22-30); Creatinine 1 0.58 mg/dL (0.52-1.04); EST GLOMERULAR FILTRATION RATE > 60.0 ML/MIN; Glucose 110 mg/dL (74-106); SGOT/AST 37 U/L (14-36); SGPT/ALT 22 U/L (0-35); SODIUM 136 mmol/L (137-145); Total Protein 7.5 g/dL (6.3-8.2)
[2023-01-27] MEDS ORDERED: solu-MEDROL 125 MG, Sterile H2O 10 ml 2 ML IV ONE ×2 (01:01)
[2023-01-27] MEDS ORDERED: TYLENOL W/ CODEINE 5 ML UD CUP PO ONE (01:02)
[2023-01-27] MEDS ORDERED: solu-MEDROL ONE (01:07)
[2023-01-27] MEDS ORDERED: TYLENOL W/ CODEINE 5 ML UD CUP ONE (01:07)
[2023-01-27] MEDS ORDERED: Sterile H2O 10 ml IJ ONE (01:07)
[2023-01-27 02:27] VITALS: BP 141/55; PULSE 71; O2SAT 94
--- NOTE | 2023-01-27 08:03 | XRAY ---
Indication: Chest pain. Comparison: July 06, 2022 Portable chest demonstrates new subtle right base infiltrate versus atelectasis. Remaining heart and lungs unremarkable. Bony thorax intact again with osteopenia, dextroscoliosis, multilevel cervical thoracic fusion hardware with fractured bilateral Wren rods, and epidural lead.
== END 2023-01-27 02:36 | disposition home or self-care (01) ==
LOC: ED 23:21
DX: J06.9 Acute upper respiratory infection, unspecified (principal); R91.8 Other nonspecific abnormal finding of lung field; R05.9 Cough, unspecified; R07.9 Chest pain, unspecified; M25.511 Pain in right shoulder; M25.512 Pain in left shoulder; E78.5 Hyperlipidemia, unspecified; Z79.899 Other long term (current) drug therapy; Z28.310 Unvaccinated for COVID-19
CPT/HCPCS: 36000; 36415; 71045; 80053; 84484; 85025; 85379; 93005; 93041; 94760; 96374; 99284; J2930; A9270-GY

== ENCOUNTER 2023-02-06 00:29 | Emergency (ER) | payer MEDICARE ==
--- NOTE | 2023-02-06 00:42 | ERPHSYRPT ---
- History of Present Illness Time Seen by Provider: 02/06/23 00:41 Source: patient Exam Limitations: no limitations Physician History: Patient reports after a fall due to passing out after prolonged coughing spell. She is unsure if she had LOC. She reports HAYS, neck pain, left shoulder, elbow and hip pain. Her cough is her biggest concern. She has been sick for several w eeks w/ upper respiratory sxs and treated w/ abx and cough med w/ codeine. The cough med did help, but she ran out and the coughing started back. She was recently switched to Doxycyline and prescribed a new cough med, but pharmacy didn't have it. Occurred: just prior to arrival Reason for Fall: fainted, lightheaded (uncontrollable coughing), fell from standing pos Injuries/Pain Location: head, neck, upper extremity (left shoulder, elbow), lower extremity (left hip) Loss of Consciousness: unsure Quality: sharpness Severity of Pain-Max: moderate Severity of Pain-Current: moderate Modifying Factors: Improves With: nothing. Worsens With: movement Associated Symptoms (Fall): extremity injury, headache, lightheadedness, nausea, neck pain, shortness of breath, vomiting Allergies/Adverse Reactions: celecoxib [From Celebrex] Allergy (Verified 02/06/23 00:43) pregabalin [From Lyrica] Allergy (Verified 02/06/23 00:43) vancomycin Allergy (Verified 02/06/23 00:43) acetaminophen [From Vicodin] Adverse Reaction (Verified 02/06/23 00:43) hydrocodone [From Vicodin] Adverse Reaction (Verified 02/06/23 00:43) pt states able to take hydrocodone alone, just not able to take norco/vicodin Home Medications: Atorvastatin Calcium [Lipitor] 40 mg PO HS 09/13/17 [History] Ergocalciferol (Vitamin D2) [Vitamin D] 50,000 mg PO UD 09/13/17 [History] Furosemide 20 mg [Lasix 20 mg] 20 mg PO DAILY PRN PRN 09/13/17 [History] Gabapentin 600 mg PO QID 09/13/17 [History] Hydroxychloroquine Sulfate [Plaquenil] 200 mg PO BID 09/13/17 [History] Trazodone HCl 50 mg [Desyrel 50 mg] 50 mg PO HS 09/13/17 [History] ALPRAZolam [Xanax] 0.5 mg HS 05/04/19 [History] Colestipol HCl [Colestid] 1 gm PO BID 05/04/19 [History] Fluoxetine HCl 40 mg PO BID 05/04/19 [History] Infliximab-Dyyb [Inflectra] 1 dose IV INFUS UD 05/04/19 [History] Multivitamin,Therapeutic [Thera-Tabs] 1 each PO DAILY 05/04/19 [History] PANTOPRAZOLE 40 mg Tablet [Protonix 40MG Tablet] 40 mg PO DAILY 05/04/19 [History] raNITIdine HCL [Ranitidine HCl] 150 mg PO BID 05/04/19 [History] Ferrous Sulfate [Ferosul] 325 mg PO DAILY 07/07/19 [History] Doxycycline Hyclate 100 mg [Vibramycin 100 MG] 100 mg PO BID 02/06/23 [History] Ipratropium/Albuterol Sulfate [Iprat-Albut 0.5-3(2.5) mg/3 ml] 1 neb IH Q4-6HPRN PRN 02/06/23 [History] Hx Tetanus, Diphtheria Vaccination/Date Given: Yes (less than three years ago) Hx Influenza Vaccination/Date Given: Yes Hx Pneumococcal Vaccination/Date Given: No Travel Risk - Vaccine Status Have you recieved a Covid-19 vaccination: No - Review of Systems Constitutional: Fatigue, Weakness, No Fever, No Chills Eyes: No Symptoms Ears, Nose, & Throat: No Symptoms Respiratory: Cough, Dyspnea on Exertion (SEO), No Dyspnea, No Wheezing Cardiac: Syncope, No Chest Pain Abdominal/Gastrointestinal: Nausea, Vomiting, Appetite Changes, No Abdominal Pain Genitourinary Symptoms: No Symptoms Musculoskeletal: Fall, Injury (as per HPI) Skin: No Symptoms Neurological: Dizziness, Headache, No Focal Weakness, No Seizure, No Speech Changes Psychological: No Symptoms Endocrine: No Symptoms Hematologic/Lymphatic: No Symptoms Immunological/Allergic: No Symptoms All Other Systems: Reviewed and Negative - Past Medical History Pertinent Past Medical History: Yes Neurological History: Migraines, Peripheral Neuropathy ENT History: No Pertinent History Cardiac History: High Cholesterol, Hypertension Respiratory History: No Pertinent History Endocrine Medical History: No Pertinent History Musculoskeletal History: Osteoarthritis, Osteoporosis, Rheumatoid Arthritis GI Medical History: GERD, Irritable Bowel History: No Pertinent History Psycho-Social History: Depression Female Reproductive Disorders: Abnormal Uterine Bleeding Other Medical History: spinal stimulator - Past Surgical History Past Surgical History: Yes Cardiac: No Pertinent History Respiratory: No Pertinent History Gastrointestinal: Appendectomy, Cholecystectomy Genitourinary: No Pertinent History Musculoskeletal: Orthopedic Surgery Female Surgical History: Hysterectomy Other Surgical History: sinus, bilateral knee replacements, back surg, neck surg - Social History Smoking Status: Never smoker Exposure to second hand smoke: No Drug Use: none Patient Lives Alone: No - Nursing Vital Signs Nursing Vital Signs: Initial Vital Signs Temperature 97.5 F 02/06/23 00:35 Pulse Rate 83 02/06/23 00:35 Blood Pressure 188/85 02/06/23 00:35 O2 Sat by Pulse Oximetry 98 02/06/23 00:35 Pain Scale Pain Intensity 7 - Gravette Coma Score Best Eye Response (Monae): (4) open spontaneously Best Verbal Response (Monae): (5) oriented Best Motor Response (Gravette): (6) obeys commands Monae Total: 15 - Physical Exam General Appearance: no apparent distress, obese Head Injury: no evidence of injury, tenderness (occipital), No contusions, No ecchymosis, No lacerations, No swelling Eye Exam: PERRL/EOMI, eyes nml inspection ENT Exam: airway nml, hearing grossly normal Neck Exam: supple, trachea midline, full range of motion, normal alignment, normal inspection, muscle spasm (b/l trapezius), paraspinous muscle tender, pain on movement of neck, tenderness, mid-line tenderness Respiratory/Chest Exam: chest tenderness, normal breath sounds, rib tenderness, No respiratory distress, No wheezing, No accessory muscle use Cardiovascular Exam: normal heart sounds, regular rate/rhythm, No murmur, No edema Gastrointestinal Exam: soft, normal bowel sounds, No tenderness, No distention, No mass, No guarding, No rebound Back Exam: normal inspection, normal range of motion, vertebral tenderness (cervical), muscle spasm, point tenderness Extremity Exam: normal inspection, normal range of motion, capillary refill <3 sec, bony point tenderness, hip tenderness, pain with movement, No deformities, No evidence of injury, No joint effusion, No swelling Neurologic Exam: alert, oriented x 3, cooperative, sensation nml, No motor deficits Skin Exam: normal color, warm, dry SpO2 Interpretation: normal O2 Delivery: Room Air - Course Nursing assessment & vital signs reviewed: Yes - CT Exams Head CT Interpretation: Negative, Tele-radiologist Report Cervical Spine CT Interpretation: Negative, Tele-radiologist Report Left Upper Extremity CT Interpretation: Negative, Tele-radiologist Report Left Lower Extremity CT Interpretation: Negative, Tele-radiologist Report Ordered Tests: Active Orders 24 hr Category Date Time Status CERVICAL SPINE WO CONTRAST [CT] Stat Exams 02/06/23 01:09 Taken HEAD WITHOUT CONTRAST [CT] Stat Exams 02/06/23 01:09 Taken LOWER EXTREMITY WO CONTRAST [CT] Stat Exams 02/06/23 01:09 Taken UPPER EXTREMITY W/O CONTRAST [CT] Stat Exams 02/06/23 01:09 Taken CBC W DIFF Stat Lab 02/06/23 02:10 Completed CMP Stat Lab 02/06/23 02:10 Completed Lactic Acid Stat Lab 02/06/23 02:25 Completed MAGNESIUM Stat Lab 02/06/23 02:10 Completed Medication Summary Generic Name Dose Route Start Last Admin Trade Name Freq PRN Reason Stop Dose Admin Chlorphenir/Hydrocodone Polistirex 5 ml 02/06/23 01:12 02/06/23 03:59 Hydrocodone/Chlorphen P-Stirex 1 Ml Francisca.Er.12h PO 03/08/23 01:11 5 ml [id number] PRN Administration COUGH Discontinued Medications Generic Name Dose Route Start Last Admin Trade Name Freq PRN Reason Stop Dose Admin Potassium Chloride 40 meq 02/06/23 03:36 02/06/23 03:54 Potassium Chloride Tab 10 Meq Tab PO 02/06/23 03:37 40 meq STAT ONE Administration Potassium Chloride Confirm 02/06/23 03:54 Potassium Chloride Tab 10 Meq Tab Administered 02/06/23 03:55 Dose 40 meq PO .STK-MED ONE Lab/Rad Data: Laboratory Result Diagrams 02/06/23 02:10 02/06/23 02:10 Laboratory Results 02/06/23 02/06/23 02/06/23 Range/Units 02:25 02:10 02:10 WBC (4.0-10.5) x10^3/uL RBC (4.1-5.4) x10^6/uL Hgb (12.0-16.0) g/dL Hct (35-47) % MCV (78-100) fL MCH (26-32) pg MCHC (32-36) g/dL RDW (11.5-14.0) % Plt Count (150-450) x10^3/uL MPV (7.5-11.0) fL Gran % (36.0-66.0) % Immature Gran % (Auto) (0.00-0.4) % Nucleat RBC Rel Count (0.00-0.1) % Eos # (Auto) (0-0.5) x10^3/uL Immature Gran # (Auto) (0.00-0.03) x10^3u/L Absolute Lymphs (auto) (1.0-4.6) x10^3/uL Absolute Monos (auto) (0.0-1.3) x10^3/uL Absolute Nucleated RBC (0.00-0.01) x10^3u/L Lymphocytes % (24.0-44.0) % Monocytes % (0.0-12.0) % Eosinophils % (0.00-5.0) % Basophils % (0.0-0.4) % Absolute Granulocytes (1.4-6.9) x10^3/uL Basophils # (0-0.4) x10^3/uL Sodium 136 L (137-145) mmol/L Potassium 3.1 L (3.5-5.1) mmol/L Chloride 103 (98-107) mmol/L Carbon Dioxide 25 (22-30) mmol/L Anion Gap 11.4 (5-15) MEQ/L BUN 12 (7-17) mg/dL Creatinine 0.62 (0.52-1.04) mg/dL Estimated GFR > 60.0 ML/MIN Glucose 100 (74-106) mg/dL Lactic Acid 1.8 (0.4-2.0) Calcium 9.7 (8.4-10.2) mg/dL Magnesium 1.8 (1.6-2.3) mg/dL Total Bilirubin 0.30 (0.2-1.3) mg/dL AST 28 (14-36) U/L ALT 21 (0-35) U/L Alkaline Phosphatase 148 H (38-126) U/L Serum Total Protein 6.8 (6.3-8.2) g/dL Albumin 4.1 (3.5-5.0) g/dL Influenza Type A Ag NEGATIVE (NEGATIVE) Influenza Type B Ag NEGATIVE (NEGATIVE) RSV (PCR) NEGATIVE (NEGATIVE) SARS-CoV-2 (PCR) NEGATIVE (NEGATIVE) 02/06/23 Range/Units 02:10 WBC 5.7 (4.0-10.5) x10^3/uL RBC 4.43 (4.1-5.4) x10^6/uL Hgb 10.2 L (12.0-16.0) g/dL Hct 33.0 L (35-47) % MCV 74.5 L (78-100) fL MCH 23.0 L (26-32) pg MCHC 30.9 L (32-36) g/dL RDW 17.9 H (11.5-14.0) % Plt Count 168 (150-450) x10^3/uL MPV 9.6 (7.5-11.0) fL Gran % 66.2 H (36.0-66.0) % Immature Gran % (Auto) 0.2 (0.00-0.4) % Nucleat RBC Rel Count 0.0 (0.00-0.1) % Eos # (Auto) 0.02 (0-0.5) x10^3/uL Immature Gran # (Auto) 0.01 (0.00-0.03) x10^3u/L Absolute Lymphs (auto) 1.44 (1.0-4.6) x10^3/uL Absolute Monos (auto) 0.43 (0.0-1.3) x10^3/uL Absolute Nucleated RBC 0.00 (0.00-0.01) x10^3u/L Lymphocytes % 25.4 (24.0-44.0) % Monocytes % 7.6 (0.0-12.0) % Eosinophils % 0.4 (0.00-5.0) % Basophils % 0.2 (0.0-0.4) % Absolute Granulocytes 3.75 (1.4-6.9) x10^3/uL Basophils # 0.01 (0-0.4) x10^3/uL Sodium (137-145) mmol/L Potassium (3.5-5.1) mmol/L Chloride (98-107) mmol/L Carbon Dioxide (22-30) mmol/L Anion Gap (5-15) MEQ/L BUN (7-17) mg/dL Creatinine (0.52-1.04) mg/dL Estimated GFR ML/MIN Glucose (74-106) mg/dL Lactic Acid (0.4-2.0) Calcium (8.4-10.2) mg/dL Magnesium (1.6-2.3) mg/dL Total Bilirubin (0.2-1.3) mg/dL AST (14-36) U/L ALT (0-35) U/L Alkaline Phosphatase (38-126) U/L Serum Total Protein (6.3-8.2) g/dL Albumin (3.5-5.0) g/dL Influenza Type A Ag (NEGATIVE) Influenza Type B Ag (NEGATIVE) RSV (PCR) (NEGATIVE) SARS-CoV-2 (PCR) (NEGATIVE) - Progress Progress: unchanged Progress Note: 02/06/23 04:19 Labs Hb 10.2, hx of chronic anemia, will defer further evaluation to pcp K 3.1, 40meq kcl given CT head, c-spine, left upper and lower extremity all negative Patient given Tussionex for cough, advised to continue Doxycycline Counseled pt/family regarding: lab results, diagnosis, need for follow-up, rad results Medical Desision Making - Diagnostic Testing Diagnostic test were ordered, analyzed, and reviewed by me: Yes Radiological Interpretation: Reviewed by me, Teleradiologist Report - Risk of complications The pt has a mod risk of morbidity or mortality based on: Need for prescription drug management - Departure Clinical Impression: Fall, Post-tussive syncope, Cough, Hypokalemia, Anemia, Right lower lobe pulmonary infiltrate Condition: Good Critical Care Time: No Referrals: BARBARA PAGE, [employer] [Primary Care Provider] - Follow up/PCP as directed Instructions: Cough, Adult (DC), Preventing Falls in Older Adults Additional Instructions: Continue Doxycycline that was prescribed yesterday. F/U w/ PCP after completion. Prescriptions: Hydrocodone/Chlorphen P-Stirex [Hydrocodone-Chlorph ER Susp (TUSSIONEX)] 5 ml PO [id number] PRN 6 Days #60 ml MDD 10 ML PRN Reason: Cough
[2023-02-06] MEDS ORDERED: HYDROCODONE-CHLORPHEN ER SUSP PO PRN (01:12)
[2023-02-06 02:37] LABS: Absolute Neutrophil Ct (ANC) 3.75 x10^3/uL (1.4-6.9); BASOPHIL % 0.2 % (0.0-0.4); Basophil (Absolute #) 0.01 x10^3/uL (0-0.4); Eosinophil % 0.4 % (0.00-5.0); Eosinophil (Absolute #) 0.02 x10^3/uL (0-0.5); Hemoglobin 10.2 g/dL (12.0-16.0); IMMATURE GRAN # 0.01 x10^3u/L (0.00-0.03); IMMATURE GRAN % 0.2 % (0.00-0.4); Lymphocyte (Absolute #) 1.44 x10^3/uL (1.0-4.6); Lymphocytes % 25.4 % (24.0-44.0); Mean Cell Volume 74.5 fL (78-100); Mean Corpuscular Hgb Concent. 30.9 g/dL (32-36); Mean Platelet Volume 9.6 fL (7.5-11.0); Monocyte (Absolute #) 0.43 x10^3/uL (0.0-1.3); Monocytes % 7.6 % (0.0-12.0); Neutrophil % 66.2 % (36.0-66.0); Platelet Count 168 x10^3/uL (150-450); Red Blood Count 4.43 x10^6/uL (4.1-5.4); Red Cell Distribution Width 17.9 % (11.5-14.0); White Blood Count 5.7 x10^3/uL (4.0-10.5)
[2023-02-06 02:51] LABS: ALBUMIN 4.1 g/dL (3.5-5.0); ALKALINE PHOSPHATASE 148 U/L (38-126); ANION GAP 11.4 MEQ/L (5-15); BLOOD UREA NITROGEN 12 mg/dL (7-17); CHLORIDE 103 mmol/L (98-107); Calcium 9.7 mg/dL (8.4-10.2); Carbon Dioxide 25 mmol/L (22-30); Creatinine 1 0.62 mg/dL (0.52-1.04); EST GLOMERULAR FILTRATION RATE > 60.0 ML/MIN; Glucose 100 mg/dL (74-106); MAGNESIUM 1.8 mg/dL (1.6-2.3); Potassium 3.1 mmol/L (3.5-5.1); SGOT/AST 28 U/L (14-36); SGPT/ALT 21 U/L (0-35); SODIUM 136 mmol/L (137-145); Total Protein 6.8 g/dL (6.3-8.2)
[2023-02-06 03:13] LABS: INFLUENZA A NEGATIVE (NEGATIVE); INFLUENZA B NEGATIVE (NEGATIVE); RESPIRATORY SYNCTIAL VIRUS NEGATIVE (NEGATIVE); SARS-CoV-2 Xpert Express NEGATIVE (NEGATIVE)
[2023-02-06] MEDS ORDERED: Klor Con PO ONE ×2 (03:36→03:54)
[2023-02-06 04:14] VITALS: BP 148/66; PULSE 87; O2SAT 97
--- NOTE | 2023-02-06 08:47 | XRAY ---
Indication: Headache following head injury/fall. Multiple contiguous axial images obtained through the head without contrast. Comparison: July 07, 2019 Normal appearing brain parenchyma, ventricles, and bony calvarium for patient's age. Visualized paranasal sinuses and mastoid air cells are clear. Impression: Continued normal CT head without contrast exam. Comment: Preliminary interpretation made by [facility]. No critical discrepancy.
--- NOTE | 2023-02-06 08:51 | XRAY ---
Indication: Pain following head injury/fall. Multiple contiguous axial images obtained through the cervical spine. Sagittal and coronal reformatted images obtained. Comparison: None Axial images negative for acute fracture, suspicious bony lesions, or spinal canal stenosis. Minimal/mild C3-C7 degenerative endplate spurring, mild multilevel bilateral degenerative facet arthropathy, and remote C5-C6 anterior fusion surgery with intact hardware. Also mild atlantoaxial degenerative changes and incompletely visualized upper thoracic posterior fusion hardware. Sagittal and coronal reformatted images demonstrates normal alignment with minimal C4-C5 disc space narrowing. No acute compression fracture, subluxation, or jumped facet. Normal appearing craniocervical junction. Visualized noncontrasted soft tissues including lung apices are unremarkable. Impression: 1. Negative acute fracture/subluxation. 2. Multilevel degenerative and postsurgical changes as detailed. Comment: Preliminary interpretation made by [facility]. No critical discrepancy.
--- NOTE | 2023-02-06 08:57 | XRAY ---
Indication: Pain following fall. Multiple contiguous axial images obtained through the left hip. Sagittal and coronal reformatted images obtained. Comparison: None Left total hip arthroplasty with prosthesis producing extreme beam artifact limits exam. Grossly intact bipolar prosthesis and 2 acetabular screws. Also incompletely visualized left SI joint fusion screw. Otherwise no gross acute fracture or suspicious bony lesions. Mild subcutaneous induration seen laterally presumed posttraumatic. Remaining visualized noncontrasted soft tissues including pelvic contents grossly unremarkable. Impression: 1. Beam artifact from left total hip arthroplasty. 2. Lateral hip subcutaneous induration presumed posttraumatic. 3. Remaining CT left hip grossly negative. Comment: Preliminary interpretation made by C. No critical discrepancy.
--- NOTE | 2023-02-06 08:59 | XRAY ---
Indication: Pain following fall. Multiple contiguous axial images obtained through the left humerus. Sagittal and coronal reformatted images obtained. Comparison: None No acute fracture, dislocation, or suspicious bony lesions. Mild degenerative changes shoulder/elbow joints as evidenced by joint space narrowing and spurring. Visualized noncontrasted soft tissues are unremarkable. Impression: Shoulder/elbow degenerative changes. Remaining CT left humerus negative. Comment: Preliminary interpretation made by [facility]. No critical discrepancy.
== END 2023-02-06 04:30 | disposition home or self-care (01) ==
LOC: ED 00:29
DX: R05.8 Other specified cough (principal); E87.6 Hypokalemia; D64.9 Anemia, unspecified; R91.8 Other nonspecific abnormal finding of lung field; R51.9 Headache, unspecified; M54.2 Cervicalgia; M25.512 Pain in left shoulder; M25.522 Pain in left elbow; M25.552 Pain in left hip; W18.30XA Fall on same level, unspecified, initial encounter; E78.5 Hyperlipidemia, unspecified; I10 Essential (primary) hypertension; Z79.02 Long term (current) use of antithrombotics/antiplatelets; Z79.899 Other long term (current) drug therapy; Z79.891 Long term (current) use of opiate analgesic; Z28.310 Unvaccinated for COVID-19; Z20.828 Contact with and (suspected) exposure to other viral communicable diseases
CPT/HCPCS: 0241U; 36415; 70450; 72125; 73200; 73700; 80053; 83605; 83735; 85025; 99284; A9270-GY

== ENCOUNTER 2023-04-08 12:01 | Emergency (ER) | payer MEDICARE ==
--- NOTE | 2023-04-08 12:36 | ERPHSYRPT ---
- History of Present Illness Source: patient, other (Daughter in law) Exam Limitations: no limitations Patient Subjective Stated Complaint: Pt states "I have had this for 4 months. I have been on steroids, been on antibiotics, am on tesselelon pearls and they help a little." Triage Nursing Assessment: PT presented alert and orientedX 3, skin pwd. Pt ambulates with an upright steady gait, able to speak in clear full sentenecs. pt has persistant cough Physician History: 62 yo WF w cough x 4months. Cough is mildly productive. She had a fever several days ago and has had mild coryza. Pt has seen her PCP/Office Technician/ER visits about her cough. Coughing causes nausea/vomiting. Diarrhea/chest pain/dyspnea/smoking are all denied. Timing/Duration: other (4 months) Cough Quality/Degree: productive cough Possible Cause: chronic episodes Modifying Factors: Improves With: coughing Associated Symptoms: fever, cough, nasal congestion, nasal drainage Allergies/Adverse Reactions: celecoxib [From Celebrex] Allergy (Verified 02/06/23 00:43) pregabalin [From Lyrica] Allergy (Verified 02/06/23 00:43) vancomycin Allergy (Verified 02/06/23 00:43) acetaminophen [From Vicodin] Adverse Reaction (Verified 02/06/23 00:43) hydrocodone [From Vicodin] Adverse Reaction (Verified 02/06/23 00:43) pt states able to take hydrocodone alone, just not able to take norco/vicodin Home Medications: Atorvastatin Calcium [Lipitor] 40 mg PO HS 09/13/17 [History] Ergocalciferol (Vitamin D2) [Vitamin D] 50,000 mg PO UD 09/13/17 [History] Furosemide 20 mg [Lasix 20 mg] 20 mg PO DAILY PRN PRN 09/13/17 [History] Trazodone HCl 50 mg [Desyrel 50 mg] 50 mg PO HS 09/13/17 [History] ALPRAZolam [Xanax] 0.5 mg HS 05/04/19 [History] Colestipol HCl [Colestid] 1 gm PO BID 05/04/19 [History] Fluoxetine HCl 40 mg PO BID 05/04/19 [History] Multivitamin,Therapeutic [Thera-Tabs] 1 each PO DAILY 05/04/19 [History] PANTOPRAZOLE 40 mg Tablet [Protonix 40MG Tablet] 40 mg PO DAILY 05/04/19 [History] raNITIdine HCL [Ranitidine HCl] 150 mg PO BID 05/04/19 [History] Ferrous Sulfate [Ferosul] 325 mg PO DAILY 07/07/19 [History] Ipratropium/Albuterol Sulfate [Iprat-Albut 0.5-3(2.5) mg/3 ml] 1 neb IH Q4-6HPRN PRN 02/06/23 [History] ARIPiprazole [Abilify Mycite] 5 mg PO DAILY 04/08/23 [History] Benzonatate 100 mg PO DAILY 04/08/23 [History] Hctz/Triamterene 25/37.5 mg [Maxzide 25MG] 12.5 mg PO DAILY 04/08/23 [History] Metoprolol Succinate 25 mg PO DAILY 04/08/23 [History] Hx Tetanus, Diphtheria Vaccination/Date Given: Yes (less than three years ago) Hx Influenza Vaccination/Date Given: Yes Hx Pneumococcal Vaccination/Date Given: No Travel Risk - International Travel Have you traveled outside of the country in past 3 weeks: No - Coronavirus Screening Are you exhibiting any of the following symptoms?: Yes Symptoms: Cough: New Onset Close contact with a COVID-19 positive Pt in past 14-21 Days: No - Vaccine Status Have you recieved a Covid-19 vaccination: No - Review of Systems Constitutional: No Symptoms, Fever Eyes: No Symptoms Ears, Nose, & Throat: No Symptoms, Nose Congestion, Nose Discharge Respiratory: No Symptoms, Cough Cardiac: No Symptoms Abdominal/Gastrointestinal: No Symptoms Genitourinary Symptoms: No Symptoms Musculoskeletal: No Symptoms Skin: No Symptoms Neurological: No Symptoms Psychological: No Symptoms Endocrine: No Symptoms Hematologic/Lymphatic: No Symptoms Immunological/Allergic: No Symptoms - Past Medical History Pertinent Past Medical History: Yes Neurological History: Migraines, Peripheral Neuropathy ENT History: No Pertinent History Cardiac History: High Cholesterol, Hypertension, Other Respiratory History: Asthma Endocrine Medical History: No Pertinent History Musculoskeletal History: Fractures, Osteoarthritis GI Medical History: GERD, Irritable Bowel History: No Pertinent History Psycho-Social History: Depression Female Reproductive Disorders: Abnormal Uterine Bleeding Other Medical History: STATES HAS "HOLE IN HER HEART" - SEES DR. PEARSON - NO SPECIFIC TREATMENT AT THIS TIME. SX HX: BILATERAL KNEE REPLACEMENTS 2016, 2017; BILATERAL HIP REPLACEMENTS 08/2022; MULTIPLE BACK SURGERIES MOST RECENT 2013 INCLUDING HARDWARE PLACEMENT FOR SCOLIOSIS AND STATES FUSED FROM NECK DOWN. ALSO HX CHOLECYSTECTOMY, APPENDECTOMY, MULTIPLE KNEE SURGERIES PRIOR TO REPLACEMENTS. HX FX RIGHT ELBOW, RIGHT WRIST, LEFT CLAVICLE, FX RIGHT LOWER LEG WITH ORIF IN 1980S, FX ARM (POINTS TO RADIUS/ULNA). OTHER MEDICAL HX: GERD, ANXIETY, DEPRESSION, CONCUSSION, - Past Surgical History Past Surgical History: Yes Cardiac: No Pertinent History Respiratory: No Pertinent History Gastrointestinal: Appendectomy, Cholecystectomy Genitourinary: No Pertinent History Musculoskeletal: Orthopedic Surgery Female Surgical History: Hysterectomy Other Surgical History: sinus, bilateral knee replacements, back surg, neck surg - Social History Smoking Status: Never smoker Exposure to second hand smoke: No Drug Use: none Patient Lives Alone: No - Nursing Vital Signs Nursing Vital Signs: Initial Vital Signs Temperature 98.1 F 04/08/23 12:06 Pulse Rate 84 04/08/23 12:06 Respiratory Rate 24 04/08/23 12:06 Blood Pressure 168/104 04/08/23 12:06 O2 Sat by Pulse Oximetry 96 04/08/23 12:06 Pain Scale Pain Intensity 0 Hypertensive - Physical Exam General Appearance: no apparent distress Eye Exam: PERRL/EOMI, eyes nml inspection Ears, Nose, Throat Exam: normal ENT inspection, TMs normal, pharynx normal, moist mucous membranes Neck Exam: normal inspection, non-tender, supple, full range of motion, No meningismus, No mass, No Brudzinski, No Kernig's, No carotid bruit Respiratory Exam: normal breath sounds, lungs clear, airway intact, No respiratory distress Cardiovascular Exam: regular rate/rhythm, normal peripheral pulses, murmur (3/6 KENNETH) Gastrointestinal/Abdomen Exam: soft, normal bowel sounds, No tenderness Back Exam: normal inspection, normal range of motion, No CVA tenderness Extremity Exam: normal inspection, normal range of motion Neurologic Exam: alert, oriented x 3, cooperative, roaster helper II-XII nml as tested, normal mood/affect, nml cerebellar function, nml station & gait, sensation nml Skin Exam: normal color, warm, dry, No rash Lymphatic Exam: No adenopathy SpO2 Interpretation: normal SpO2: 96 O2 Delivery: Room Air - Course Nursing assessment & vital signs reviewed: Yes - CT Exams Chest CT Interpretation: Tele-radiologist Report (Sub-pleural ground glass nodule RLL/Small calficic foci B breasts) Ordered Tests: Active Orders 24 hr Category Date Time Status CHEST WITHOUT CONTRAST [CT] Stat Exams 04/08/23 12:29 Completed CBC W DIFF Stat Lab 04/08/23 13:01 Completed CMP Stat Lab 04/08/23 13:01 Completed Lactic Acid Stat Lab 04/08/23 12:28 Completed NT PRO BNPII Stat Lab 04/08/23 13:01 Completed PROTIME WITH INR Stat Lab 04/08/23 13:01 Completed PTT Stat Lab 04/08/23 13:01 Completed TROPONIN Stat Lab 04/08/23 13:01 Completed Lab/Rad Data: Laboratory Result Diagrams 04/08/23 13:01 04/08/23 13:01 Laboratory Results 04/08/23 04/08/23 04/08/23 Range/Units 13:01 13:01 13:01 WBC 3.9 L (4.0-10.5) x10^3/uL RBC 4.21 (4.1-5.4) x10^6/uL Hgb 10.4 L (12.0-16.0) g/dL Hct 32.7 L (35-47) % MCV 77.7 L (78-100) fL MCH 24.7 L (26-32) pg MCHC 31.8 L (32-36) g/dL RDW 16.1 H (11.5-14.0) % Plt Count 160 (150-450) x10^3/uL MPV 9.6 (7.5-11.0) fL Gran % 69.5 H (36.0-66.0) % Immature Gran % (Auto) 0.3 (0.00-0.4) % Nucleat RBC Rel Count 0.0 (0.00-0.1) % Eos # (Auto) 0.02 (0-0.5) x10^3/uL Immature Gran # (Auto) 0.01 (0.00-0.03) x10^3u/L Absolute Lymphs (auto) 0.91 L (1.0-4.6) x10^3/uL Absolute Monos (auto) 0.23 (0.0-1.3) x10^3/uL Absolute Nucleated RBC 0.00 (0.00-0.01) x10^3u/L Lymphocytes % 23.5 L (24.0-44.0) % Monocytes % 5.9 (0.0-12.0) % Eosinophils % 0.5 (0.00-5.0) % Basophils % 0.3 (0.0-0.4) % Absolute Granulocytes 2.70 (1.4-6.9) x10^3/uL Basophils # 0.01 (0-0.4) x10^3/uL PT 10.7 (9.4-12.5) SECONDS INR 0.98 (0.8-3.0) APTT 25.1 (25.1-36.5) SECONDS Sodium 132 L (137-145) mmol/L Potassium 3.9 (3.5-5.1) mmol/L Chloride 97 L (98-107) mmol/L Carbon Dioxide 24 (22-30) mmol/L Anion Gap 14.1 (5-15) MEQ/L BUN 14 (7-17) mg/dL Creatinine 0.56 (0.52-1.04) mg/dL Estimated GFR > 60.0 ML/MIN Glucose 127 H (74-106) mg/dL Lactic Acid (0.4-2.0) Calcium 9.6 (8.4-10.2) mg/dL Total Bilirubin 0.20 (0.2-1.3) mg/dL AST 32 (14-36) U/L ALT 17 (0-35) U/L Alkaline Phosphatase 105 (38-126) U/L Troponin I < 0.012 (0.000-0.034) ng/mL NT-Pro-B Natriuret Pep 228 (<300) pg/mL Serum Total Protein 6.8 (6.3-8.2) g/dL Albumin 4.0 (3.5-5.0) g/dL Influenza Type A Ag (NEGATIVE) Influenza Type B Ag (NEGATIVE) RSV (PCR) (NEGATIVE) SARS-CoV-2 (PCR) (NEGATIVE) Group A Strep Antibody (NEGATIVE) 06/04/23 06/04/23 06/04/23 Range/Units 12:57 12:57 12:28 WBC (4.0-10.5) x10^3/uL RBC (4.1-5.4) x10^6/uL Hgb (12.0-16.0) g/dL Hct (35-47) % MCV (78-100) fL MCH (26-32) pg MCHC (32-36) g/dL RDW (11.5-14.0) % Plt Count (150-450) x10^3/uL MPV (7.5-11.0) fL Gran % (36.0-66.0) % Immature Gran % (Auto) (0.00-0.4) % Nucleat RBC Rel Count (0.00-0.1) % Eos # (Auto) (0-0.5) x10^3/uL Immature Gran # (Auto) (0.00-0.03) x10^3u/L Absolute Lymphs (auto) (1.0-4.6) x10^3/uL Absolute Monos (auto) (0.0-1.3) x10^3/uL Absolute Nucleated RBC (0.00-0.01) x10^3u/L Lymphocytes % (24.0-44.0) % Monocytes % (0.0-12.0) % Eosinophils % (0.00-5.0) % Basophils % (0.0-0.4) % Absolute Granulocytes (1.4-6.9) x10^3/uL Basophils # (0-0.4) x10^3/uL PT (9.4-12.5) SECONDS INR (0.8-3.0) APTT (25.1-36.5) SECONDS Sodium (137-145) mmol/L Potassium (3.5-5.1) mmol/L Chloride (98-107) mmol/L Carbon Dioxide (22-30) mmol/L Anion Gap (5-15) MEQ/L BUN (7-17) mg/dL Creatinine (0.52-1.04) mg/dL Estimated GFR ML/MIN Glucose (74-106) mg/dL Lactic Acid 1.1 (0.4-2.0) Calcium (8.4-10.2) mg/dL Total Bilirubin (0.2-1.3) mg/dL AST (14-36) U/L ALT (0-35) U/L Alkaline Phosphatase (38-126) U/L Troponin I (0.000-0.034) ng/mL NT-Pro-B Natriuret Pep (<300) pg/mL Serum Total Protein (6.3-8.2) g/dL Albumin (3.5-5.0) g/dL Influenza Type A Ag NEGATIVE (NEGATIVE) Influenza Type B Ag NEGATIVE (NEGATIVE) RSV (PCR) NEGATIVE (NEGATIVE) SARS-CoV-2 (PCR) NEGATIVE (NEGATIVE) Group A Strep Antibody NOT DETECTED (NEGATIVE) - Progress Progress Note: 04/08/23 14:44 Nursing note and vital signs reviewed No food or housing insecurities noted Additional history per daughter in law All lab results reviewed and shared w pt CT result reviewed and shared w pt Pt has a chronic cough of unknown origin. She has no evidence of pneumonia on CT and CV19/Flu/Strep/RSV neg. Pt advised to follow up with her [employer] dealer, and she states that she has an appointment on 04/16/23. Unable to give pt Tussionex due to hydrocodone allergy, and pt already on Tessalon pearls. Medical Desision Making - Diagnostic Testing Diagnostic test were ordered, analyzed, and reviewed by me: Yes Radiological Interpretation: Reviewed by me, Teleradiologist Report - Risk of complications Low Risk: Low risk of morbidity from additional dx testing or treatment - Departure Departure Disposition: Home Clinical Impression: Chronic cough Condition: Stable Critical Care Time: No Referrals: BARBARA PAGE, FILENET ARCHITECT [Primary Care Provider] - Follow up/PCP as directed Instructions: Cough, Adult (DC) Additional Instructions: Follow up with your big [employer] dealer Start taking Zyrtec at night Try an over the counter nasal steroid-2 sprays to each nostril twice a day Delsym for cough Return to ER as needed
[2023-04-08 13:08] LABS: BASOPHIL % 0.3 % (0.0-0.4); Basophil (Absolute #) 0.01 x10^3/uL (0-0.4); Eosinophil % 0.5 % (0.00-5.0); Eosinophil (Absolute #) 0.02 x10^3/uL (0-0.5); Hematocrit 32.7 % (35-47); Hemoglobin 10.4 g/dL (12.0-16.0); IMMATURE GRAN # 0.01 x10^3u/L (0.00-0.03); IMMATURE GRAN % 0.3 % (0.00-0.4); Lymphocyte (Absolute #) 0.91 x10^3/uL (1.0-4.6); Lymphocytes % 23.5 % (24.0-44.0); Mean Cell Volume 77.7 fL (78-100); Mean Corpuscular Hemoglobin 24.7 pg (26-32); Mean Corpuscular Hgb Concent. 31.8 g/dL (32-36); Mean Platelet Volume 9.6 fL (7.5-11.0); Monocyte (Absolute #) 0.23 x10^3/uL (0.0-1.3); Monocytes % 5.9 % (0.0-12.0); Neutrophil % 69.5 % (36.0-66.0); Platelet Count 160 x10^3/uL (150-450); Red Blood Count 4.21 x10^6/uL (4.1-5.4); Red Cell Distribution Width 16.1 % (11.5-14.0); White Blood Count 3.9 x10^3/uL (4.0-10.5)
[2023-04-08 13:22] LABS: INR 0.98 (0.8-3.0); PROTIME 10.7 SECONDS (9.4-12.5); PTT 25.1 SECONDS (25.1-36.5)
[2023-04-08 13:33] LABS: ALKALINE PHOSPHATASE 105 U/L (38-126); ANION GAP 14.1 MEQ/L (5-15); BLOOD UREA NITROGEN 14 mg/dL (7-17); CHLORIDE 97 mmol/L (98-107); Calcium 9.6 mg/dL (8.4-10.2); Carbon Dioxide 24 mmol/L (22-30); Creatinine 1 0.56 mg/dL (0.52-1.04); EST GLOMERULAR FILTRATION RATE > 60.0 ML/MIN; Glucose 127 mg/dL (74-106); NT PRO BNPII 228 pg/mL (<300); Potassium 3.9 mmol/L (3.5-5.1); SGOT/AST 32 U/L (14-36); SGPT/ALT 17 U/L (0-35); SODIUM 132 mmol/L (137-145); TROPONIN < 0.012 ng/mL (0.000-0.034); Total Protein 6.8 g/dL (6.3-8.2)
--- NOTE | 2023-04-08 13:40 | XRAY ---
CLINICAL HISTORY:Chronic cough. COMPARISON:None. TECHNIQUES:Axial CT cuts were taken through the chest with multiplanar reformatting and without contrast administration. FINDINGS: Both lungs are clear with no pulmonary infiltration. No evidence of lung collapse, or consolidation. Minimal posterior pleural thickening in lung bases. Subpleural groundglass nodule in right lower lobe measures about 5 mm (Series 3. Image 35). No significant hilar or mediastinal lymph leida enlargement. Normal cardiac size and shape with no pericardial effusion. The visualized pleural sacs, chest wall, and axillary spaces display a normal appearance. Bone window settings showed thoracic spine scoliosis with evidence of previous spine corrective surgery and spinal fixation, Thoracic spondylotic changes with marginal osteophytes, narrowed mid-thoracic disc spaces, and schmorls nodes at the opposing vertebral end plates. No evidence of destructive bony lesions. Evidence of cervical spine surgery is also noted. Post-cholecystectomy surgical clips are noted in the scanned upper abdomen, with small splenic calcification. Mild elevation of the right hemidiaphragm. Small both breasts calcific foci. IMPRESSION: 1. Subpleural groundglass nodule in right lower lobe measures about 5 mm (Series 3. Image 35). No followup/forther workup is needed. 2. Evidence of previous spinal surgery with spondylotic changes and scoliosis of the thoracic spine. 3. Small both breasts calcific foci, for clinical and mammography correlation. Electronically Signed by: Angelia Quinonez MD. (04/08/2023 12:35:35 STRAIGHTENING MACHINE OPERATOR)
[2023-04-08 14:05] LABS: INFLUENZA A NEGATIVE (NEGATIVE); INFLUENZA B NEGATIVE (NEGATIVE); RESPIRATORY SYNCTIAL VIRUS NEGATIVE (NEGATIVE); SARS-CoV-2 Xpert Express NEGATIVE (NEGATIVE)
[2023-04-08 14:12] VITALS: BP 194/91; PULSE 72
[2023-04-08 14:17] VITALS: O2SAT 96
== END 2023-04-08 14:22 | disposition home or self-care (01) ==
LOC: ED 12:01
DX: R05.3 Chronic cough (principal); E78.5 Hyperlipidemia, unspecified; I10 Essential (primary) hypertension; Z79.899 Other long term (current) drug therapy; Z28.310 Unvaccinated for COVID-19; Z20.828 Contact with and (suspected) exposure to other viral communicable diseases
CPT/HCPCS: 0241U; 36415; 71250; 80053; 83605; 83880; 84484; 85025; 85610; 85730; 87651; 99283

== ENCOUNTER 2023-04-10 05:59 | Day surgery (SDC) | payer MEDICARE ==
[2023-04-10] MEDS ORDERED: Lactated Ringers 1,000 ML IV SCH (06:30)
[2023-04-10] MEDS ORDERED: Xylocaine-Mpf 2% 5 Ml Vial ONE (07:19)
[2023-04-10] MEDS ORDERED: DIPRIVAN 200 MG/20 ML IV ONE (07:19)
[2023-04-10] MEDS ORDERED: Versed 2 MG/2 ML Injection ONE (07:20)
[2023-04-10 08:40] VITALS: O2SAT 95
[2023-04-10 08:46] VITALS: BP 156/96; PULSE 76
--- NOTE | 2023-04-10 09:03 | OP ---
SURGERY DATE/TIME: 04/10/2023 0739 PREOPERATIVE DIAGNOSIS: Chronic cough and reflux. POSTOPERATIVE DIAGNOSIS: Normal exam. PROCEDURE: Esophagogastroduodenoscopy. SURGEON: Dr. Lambert. ANESTHESIA: Medications were given by the anesthesia department. BRIEF HISTORY: The patient is a 62-year-old white female presenting now for endoscopic evaluation. The patient said she has had a cough for about four months. She said it started with a bout of pneumonia. She feels like there is food stuff coming up into the esophagus especially late at night. The patient's primary care provider wanted her to have evaluation performed. The patient was described the risks of the procedure including the risk of perforation, phlebitis, untoward reaction to medication, sore throat and vocal cord injury. The patient verbalized her understanding and desired to have the procedure performed. DESCRIPTION OF PROCEDURE: The patient was given the medications by the anesthesia department. She had continuous pulse oximetry, ECG monitoring and intermittent blood pressure monitoring during the examination. She was placed in the left lateral decubitus position. A bite block was placed and the flexible Olympus gastroscope was used to intubate the oropharynx. A view of the larynx was obtained and was normal. The scope was easily introduced in the esophagus which appeared to be normal throughout its length. The stomach was entered where normal gastric rugal folds were seen and these distended nicely with insufflation of air. The scope was passed along the greater curvature of the stomach to the antrum. The pylorus was encountered and intubated. The duodenum inspected and found to be normal. The scope is withdrawn towards the stomach. Again a retroflex view was obtained of the lesser curvature, fundus and cardia regions of the stomach and these appeared to be normal as well. The scope was then withdrawn from the patient with careful inspection. No mucosal lesions being encountered the scope was removed from the patient who tolerated the procedure well and was sent back to outpatient recovery in good condition.
== END 2023-04-10 08:58 | disposition home or self-care (01) ==
LOC: SDC 05:59
PROVIDERS: ATTEND Family Medicine
DX: R05.3 Chronic cough (principal); K21.9 Gastro-esophageal reflux disease without esophagitis
CPT/HCPCS: J2250; J2704

== ENCOUNTER 2024-06-07 23:09 | Emergency (ER) | payer MEDICARE ==
--- NOTE | 2024-06-07 23:40 | ERPHSYRPT ---
- History of Present Illness Time Seen by Provider: 06/07/24 23:40 Source: patient, family Exam Limitations: no limitations Physician History: pt noted lump on right hip a week ago and then noted ulcer there and came to er tonight . minimal pain. mild tenderness and no fluctuance but area of induration. and erythema localized. full ROm hip without pain. No hx trauma. had bilateral replacements of hips. Not Diabetic. Not in NH. N/V intact. sensation at the incision of surgery is decreased as expected and may have played a role in development but this is speculative. Discussed with pt and family risks/benefits of testing/Tx including CT right hip, CBC, ESR, and Rocephin/IV and they wish to proceed, so these are ordered. Results discussed. Timing/Duration: day(s) Quality: other (like a lump) Severity: mild Location: extremities Possible Causes: other (presure sore) Associated Symptoms: denies symptoms Allergies/Adverse Reactions: celecoxib [From Celebrex] Allergy (Verified 04/10/23 06:13) pregabalin [From Lyrica] Allergy (Verified 04/10/23 06:13) vancomycin Allergy (Verified 04/10/23 06:13) acetaminophen [From Vicodin] Adverse Reaction (Verified 02/06/23 00:43) hydrocodone [From Vicodin] Adverse Reaction (Verified 04/10/23 06:13) pt states able to take hydrocodone alone, just not able to take norco/vicodin Home Medications: Atorvastatin Calcium [Lipitor] 40 mg PO HS 09/13/17 [History] Ergocalciferol (Vitamin D2) [Vitamin D] 4,000 mg PO DAILY 09/13/17 [History] Furosemide 20 mg [Lasix 20 mg] 20 mg PO DAILY PRN PRN 09/13/17 [History] Trazodone HCl 50 mg [Desyrel 50 mg] 200 mg PO HS 09/13/17 [History] Colestipol HCl [Colestid] 1 gm PO BID 05/04/19 [History] Fluoxetine HCl 40 mg PO BID 05/04/19 [History] ARIPiprazole [Abilify Mycite] 5 mg PO DAILY 04/08/23 [History] Metoprolol Succinate 25 mg PO DAILY 04/08/23 [History] Budesonide/Formoterol Fumarate [Budesonide-Formoterol 160-4.5] 10.2 gm IH DAILY PRN PRN 04/09/23 [History] Famotidine [Pepcid] 40 mg PO DAILY 04/09/23 [History] Naratriptan HCl 1 mg PO DAILY PRN PRN 04/09/23 [History] Oxcarbazepine 300 mg [Trileptal 300 MG Tablet] 300 mg PO BID 04/09/23 [History] Potassium Chloride 20 meq PO DAILY 04/09/23 [History] Rizatriptan Benzoate [Rizatriptan] 10 mg PO DAILY PRN PRN 04/09/23 [History] Sulfasalazine 500 mg [Azulfidine 500 mg] 100 mg PO BID 04/09/23 [History] hydroCHLOROthiazide [Hydrochlorothiazide] 12.5 mg PO DAILY 04/09/23 [History] Albuterol 8 gm Mdi Hfa [Ventolin Hfa MDI] 2 puffs IH BID 04/10/23 [History] Hx Tetanus, Diphtheria Vaccination/Date Given: Yes (less than three years ago) Hx Influenza Vaccination/Date Given: Yes Hx Pneumococcal Vaccination/Date Given: No - Review of Systems Constitutional: No Fever, No Chills Eyes: No Symptoms Ears, Nose, & Throat: No Symptoms Respiratory: No Cough, No Dyspnea Cardiac: No Chest Pain, No Edema, No Syncope Abdominal/Gastrointestinal: No Abdominal Pain, No Nausea, No Vomiting, No Diarrhea Genitourinary Symptoms: No Dysuria Musculoskeletal: No Back Pain, No Neck Pain Skin: No Rash Neurological: No Dizziness, No Focal Weakness, No Sensory Changes Psychological: No Symptoms Endocrine: No Symptoms All Other Systems: Reviewed and Negative - Past Medical History Pertinent Past Medical History: Yes Neurological History: Migraines, Peripheral Neuropathy ENT History: No Pertinent History Cardiac History: High Cholesterol, Hypertension Respiratory History: Asthma Endocrine Medical History: No Pertinent History, [place]'s Disease Musculoskeletal History: Arthritis, Degenerative Disk Disease, Fibromyalgia, Osteoporosis, Rheumatoid Arthritis GI Medical History: GERD, Irritable Bowel History: No Pertinent History Psycho-Social History: Depression Female Reproductive Disorders: Abnormal Uterine Bleeding Other Medical History: B THR (OCT,4,2022), B TKR (2017,2018), RA, GERD, MIGRAINES 1-2X MONTH, NEUROPATHY (B FEET & HANDS), NEUROLOGICAL COUGH,SCOLIOSIS, DEPRESSION, ANXIETY, FIBROSIS OF LUNG, MILD TRICUSPID VALVE REGURGITATION, M ITRAL VALVE REGURGITATION, BROKEN R ANKLE REQUIRING 4 SURGERIES (80'S), BROKEN L ARM ([place]ATIVE [place]), L CLAVICLE BREAK, BROKEN R ELBOW, BROKEN L WRIST. PT SEES 03/10/24. DR. BLAIR. APPENDENCTOMY, GALL BLADDER REMOVAL, 8 SPINE SURGERIES FOR SCOLOSIS WITH FUSION FROM NECK TO TAILBONE. - Past Surgical History Past Surgical History: Yes Cardiac: No Pertinent History Respiratory: No Pertinent History Gastrointestinal: Appendectomy, Cholecystectomy Genitourinary: No Pertinent History Musculoskeletal: Orthopedic Surgery Female Surgical History: Hysterectomy Other Surgical History: sinus, bilateral knee replacements, back surg, neck surg - Social History Smoking Status: Never smoker Exposure to second hand smoke: Yes (vaping) Drug Use: none Patient Lives Alone: No - Nursing Vital Signs Nursing Vital Signs: Initial Vital Signs Temperature 98.0 F 06/07/24 23:35 Pulse Rate 83 06/07/24 23:35 Respiratory Rate 16 06/07/24 23:35 Blood Pressure 143/93 06/07/24 23:35 O2 Sat by Pulse Oximetry 98 06/07/24 23:35 Pain Scale Pain Intensity 2 - Physical Exam General Appearance: no apparent distress, alert Eye Exam: PERRL/EOMI, eyes nml inspection Ears, Nose, Throat Exam: normal ENT inspection, pharynx normal, moist mucous membranes Neck Exam: normal inspection, non-tender, supple, full range of motion Respiratory Exam: normal breath sounds, lungs clear, No respiratory distress Cardiovascular Exam: regular rate/rhythm, normal heart sounds Gastrointestinal/Abdomen Exam: soft, mass, No tenderness Pelvic Exam: deferred Rectal Exam: deferred Back Exam: normal inspection, normal range of motion, No CVA tenderness, No vertebral tenderness Extremity Exam: normal inspection, normal range of motion Neurologic Exam: alert, oriented x 3, cooperative, normal mood/affect, sensation nml, No motor deficits Skin Exam: normal color, warm, dry, other (pressure ulcer right hip) SpO2 Interpretation: normal SpO2: 97 O2 Delivery: Room Air - Course Nursing assessment & vital signs reviewed: Yes - CT Exams Right Lower Extremity CT Interpretation: Tele-radiologist Report, No Fracture, Other (No abscess or collection - cellulitis/fat stranding) Ordered Tests: Active Orders 24 hr Category Date Time Status IV Insertion STAT Care 06/08/24 00:00 Active LOWER EXTREMITY WO CONTRAST [CT] Stat Exams 06/07/24 23:59 Completed ESR [Erythrocyte Sedimentation Rate] Stat Lab 06/08/24 00:34 Completed Medication Summary Discontinued Medications Generic Name Dose Route Start Last Admin Trade Name Freq PRN Reason Stop Dose Admin Ceftriaxone Sodium 1 gm in 100 mls @ 200 mls/hr 06/08/24 00:00 06/08/24 00:50 Rocephin 1 Gm / 100 Ml Nacl IV 06/08/24 00:29 200 mls/hr STAT ONE 200 mls/hr Administration Ceftriaxone Sodium Confirm 06/08/24 00:12 Rocephin 1 Gm / 100 Ml Nacl Administered 06/08/24 00:13 Dose 1 gm in 100 mls @ ud IV .STK-MED ONE Lab/Rad Data: Laboratory Result Diagrams 06/07/24 00:34 06/07/24 00:34 Laboratory Results 06/08/24 06/07/24 06/07/24 Range/Units 00:34 00:34 00:34 WBC 5.0 (3.98-10.04) x10^3/uL RBC 3.74 L (3.93-5.22) x10^6/uL Hgb 10.9 L (11.2-15.7) g/dL Hct 33.3 L (34.1-44.9) % MCV 89.0 (79.4-94.8) fL MCH 29.1 (25.6-32.2) pg MCHC 32.7 (32.2-35.5) g/dL RDW 12.6 (11.7-14.4) % Plt Count 150 L (182-369) x10^3/uL MPV 10.3 (9.4-12.3) fL Gran % 59.1 (34.0-71.1) % Immature Gran % (Auto) 0.0 L (0.001-0.429) % Nucleat RBC Rel Count 0.0 (0.00-0.2) % Eos # (Auto) 0.06 (0.04-0.36) x10^3/uL Immature Gran # (Auto) 0.00 L (0.001-0.031) x10^3u/L Absolute Lymphs (auto) 1.63 (1.18-3.74) x10^3/uL Absolute Monos (auto) 0.35 (0.24-0.86) x10^3/uL Absolute Nucleated RBC 0.00 (0.00-0.012) x10^3u/L Lymphocytes % 32.5 (19.3-51.7) % Monocytes % 7.0 (4.7-12.5) % Eosinophils % 1.2 (0.7-5.8) % Basophils % 0.2 (0.1-1.2) % Absolute Granulocytes 2.97 (1.56-6.13) x10^3/uL Basophils # 0.01 (0.01-0.08) x10^3/uL ESR 2 (0-20) mm/hr Sodium 136 (135-145) mmol/L Potassium 4.3 (3.5-5.1) mmol/L Chloride 104 (98-107) mmol/L Carbon Dioxide 23 (22-30) mmol/L Anion Gap 13.4 (5-15) MEQ/L BUN 12 (7-17) mg/dL Creatinine 0.55 (0.52-1.04) mg/dL Estimated GFR 102.3 ML/MIN Glucose 119 H (74-106) mg/dL Calcium 10.0 (8.4-10.2) mg/dL Total Bilirubin 0.70 (0.2-1.3) mg/dL AST 40 H (14-36) U/L ALT 21 (0-35) U/L Alkaline Phosphatase 78 (38-126) U/L Serum Total Protein 7.0 (6.3-8.2) g/dL Albumin 4.1 (3.5-5.0) g/dL - Progress Progress: improved, re-examined Counseled pt/family regarding: lab results, diagnosis, need for follow-up, rad results Medical Desision Making - Independent Historian Additional History obtained from: Family - Discussion of managment Reviewed:: Test results, Need for additional workup Agreed on:: Treatment plan, need for follow-up - Diagnostic Testing Diagnostic test were ordered, analyzed, and reviewed by me: Yes Radiological Interpretation: Teleradiologist Report - Risk of complications The pt has a mod risk of morbidity or mortality based on: Need for prescription drug management The pt has a high risk of morbidity or mortality based on: Decision regarding hospitilization or escalation of hosp level of care - Departure Departure Disposition: Home Clinical Impression: Right Hip pressure ulcer Condition: Good Critical Care Time: No Referrals: BARBARA PAGE, SANDRA [Primary Care Provider] - Follow up/PCP as directed Instructions: Wound Care (DC), Pressure sores Additional Instructions: followup with your hip ortho Dr, and your Dr. to get a referral to a wound dr. for pressure sores. Also follow-up your blood pressure, slight elevated blood sugar, and liver test. return meantime if any fever, vomiting, increased pain or spreading of redness or other concerns. Prescriptions: Smz/Tmp Ds Tablet [Bactrim Ds Tablet] 1 tab PO Q12H #20 tablet Mupirocin [Bactroban OINTMENT] 22 gm TP BID #1 cartridge Cephalexin Mh 500 mg [Keflex 500 mg] 500 mg PO TID 7 Days #30 cap
[2024-06-07 23:52] VITALS: RESP 16
[2024-06-08] MEDS ORDERED: ROCEPHIN 1 GM / 100 ML NaCl 1 GM/100 ML IVPB IV ONE (00:12)
[2024-06-08 00:33] VITALS: PULSE 98
[2024-06-08 00:39] LABS: Absolute Neutrophil Ct (ANC) 2.97 x10^3/uL (1.56-6.13); BASOPHIL % 0.2 % (0.1-1.2); Basophil (Absolute #) 0.01 x10^3/uL (0.01-0.08); Eosinophil % 1.2 % (0.7-5.8); Eosinophil (Absolute #) 0.06 x10^3/uL (0.04-0.36); Hematocrit 33.3 % (34.1-44.9); Hemoglobin 10.9 g/dL (11.2-15.7); Lymphocyte (Absolute #) 1.63 x10^3/uL (1.18-3.74); Lymphocytes % 32.5 % (19.3-51.7); Mean Corpuscular Hemoglobin 29.1 pg (25.6-32.2); Mean Corpuscular Hgb Concent. 32.7 g/dL (32.2-35.5); Mean Platelet Volume 10.3 fL (9.4-12.3); Monocyte (Absolute #) 0.35 x10^3/uL (0.24-0.86); Neutrophil % 59.1 % (34.0-71.1); Platelet Count 150 x10^3/uL (182-369); Red Blood Count 3.74 x10^6/uL (3.93-5.22); Red Cell Distribution Width 12.6 % (11.7-14.4)
[2024-06-08] MEDS: ROCEPHIN 1 GM / 100 ML NaCl 1 GM/100 ML IVPB IV ONE (00:50)
[2024-06-08 01:02] LABS: ALBUMIN 4.1 g/dL (3.5-5.0); ANION GAP 13.4 MEQ/L (5-15); BILIRUBIN,TOTAL 0.7 mg/dL (0.2-1.3); Creatinine 1 0.55 mg/dL (0.52-1.04); EST GLOMERULAR FILTRATION RATE 102.3 ML/MIN; Potassium 4.3 mmol/L (3.5-5.1)
[2024-06-08 01:19] VITALS: TEMP 98.2
--- NOTE | 2024-06-08 02:22 | XRAY ---
CLINICAL HISTORY: pressure ulcer right hip COMPARISON: NONE TECHNIQUE: Contiguous axial CT images were obtained without intravenous contrast. Coronal and sagittal reconstructions were likewise performed and indicated to increase the sensitivity for detecting clinically relevant pathology. CT scan was performed according to ALARA (as low as reasonable achievable). FINDINGS: Diffuse osteopenia. Right total hip replacement and sacral fixation implants and screws seen in situ. Diffuse subcutaneous fat stranding over lateral aspect of right proximal thigh. No acute fracture or dislocation. No destructive osseous lesion. The visualized muscles and tendons appear grossly unremarkable. No cortical destruction to suggest osteomyelitis. No abscess formation. No significant joint effusion. There are no soft tissue masses. IMPRESSION: 1. Diffuse osteopenia. 2. Right total hip replacement and sacral bone fixation implants and screws seen in situ. 3. Diffuse subcutaneous fat stranding over lateral aspect of right proximal thigh. No subcutaneous collection noted. Electronically Signed by: Richi Arreaga MD. (06/08/2024 02:17:04 EDT)
[2024-06-08 03:25] VITALS: O2SAT 97
[2024-06-08 04:03] VITALS: BP 136/65
== END 2024-06-08 03:55 | disposition home or self-care (01) ==
LOC: ED 23:09
DX: L89.219 Pressure ulcer of right hip, unspecified stage (principal); E78.5 Hyperlipidemia, unspecified; I10 Essential (primary) hypertension; Z79.899 Other long term (current) drug therapy
CPT/HCPCS: 36000; 36415; 73700; 80053; 85025; 85652; 87070; 96365; 99284; J0696

== ENCOUNTER 2024-12-10 15:10 | Emergency (ER) | payer MEDICARE ==
[2024-12-10 15:22] VITALS: TEMP 97.6
[2024-12-10 16:25] LABS: Absolute Neutrophil Ct (ANC) 3.73 x10^3/uL (1.56-6.13); BASOPHIL % 0.4 % (0.1-1.2); Basophil (Absolute #) 0.02 x10^3/uL (0.01-0.08); Eosinophil % 2.4 % (0.7-5.8); Eosinophil (Absolute #) 0.13 x10^3/uL (0.04-0.36); Hematocrit 33.5 % (34.1-44.9); Hemoglobin 10.1 g/dL (11.2-15.7); IMMATURE GRAN # 0.01 x10^3u/L (0.001-0.031); IMMATURE GRAN % 0.2 % (0.001-0.429); Lymphocyte (Absolute #) 1.25 x10^3/uL (1.18-3.74); Mean Cell Volume 78.6 fL (79.4-94.8); Mean Corpuscular Hemoglobin 23.7 pg (25.6-32.2); Mean Corpuscular Hgb Concent. 30.1 g/dL (32.2-35.5); Mean Platelet Volume 9.8 fL (9.4-12.3); Monocytes % 5.5 % (4.7-12.5); Neutrophil % 68.5 % (34.0-71.1); Platelet Count 162 x10^3/uL (182-369); Red Blood Count 4.26 x10^6/uL (3.93-5.22); Red Cell Distribution Width 14.9 % (11.7-14.4); White Blood Count 5.4 x10^3/uL (3.98-10.04)
[2024-12-10] MEDS ORDERED: DUONEB 0.5-3 MG/3 ml Neb IH ONE (16:35)
[2024-12-10] MEDS: DUONEB 0.5-3 MG/3 ml Neb IH ONE (16:42)
--- NOTE | 2024-12-10 16:42 | XRAY ---
Indication: Chest pain. Comparison: January 18, 2024 Portable chest less inflated and remains clear. Heart now borderline enlarged. Bony thorax intact again with osteopenia, dextroscoliosis and cervical thoracic lumbar fusion hardware. Impression: Nonacute chest with chronic features.
--- NOTE | 2024-12-10 16:48 | ERPHSYRPT ---
<BERE MACIAS - Last Filed: 12/10/24 19:23> - History of Present Illness Time Seen by Provider: 12/10/24 15:25 Historian: patient Exam Limitations: no limitations Patient Subjective Stated Complaint: Pt states "I have gained weight over the past week and had labs done the other day but today I feel like I have a band around my chest and my lower legs are super swollen." Triage Nursing Assessment: Pt presented alert and oriented X3, skin pwd. Pt ambualtes with an upright steady gait, able to speak in clear full sentences. Pt resting comfortably on the bed. Physician History: 64-year-old female with history of hypertension, hyperlipidemia, depression presented in the ER with complains of chest pain. Patient reports 3 to 4 days ago it started as a head cold with sinus/nasal congestion, sore throat, frontal/sinus headache followed by nonproductive cough and no cough productive of clear thick sputum. Patient reports she feels like a band sensation around all across her chest. No difficulty breathing. Patient does report having gradually increasing swelling in both lower extremities and has followed up with her primary care to make sure she does not have congestive heart failure. She gained 12 pounds in 2 weeks time. No history of coronary artery disease or CHF in the past. Allergies/Adverse Reactions: celecoxib [From Celebrex] Allergy (Verified 12/04/24 13:04) pregabalin [From Lyrica] Allergy (Verified 12/04/24 13:04) vancomycin Allergy (Verified 12/04/24 13:04) acetaminophen [From Vicodin] Adverse Reaction (Verified 12/04/24 13:04) hydrocodone [From Vicodin] Adverse Reaction (Verified 12/04/24 13:04) pt states able to take hydrocodone alone, just not able to take norco/vicodin Home Medications: Atorvastatin Calcium [Lipitor] 40 mg PO HS 09/13/17 [History] Ergocalciferol (Vitamin D2) [Vitamin D] 4,000 mg PO DAILY 09/13/17 [History] Furosemide 20 mg [Lasix 20 mg] 40 mg PO DAILY PRN PRN 09/13/17 [History] Trazodone HCl 50 mg [Desyrel 50 mg] 200 mg PO HS 11/09/17 [History] Colestipol HCl [Colestid] 2 gm PO BID 05/04/19 [History] Fluoxetine HCl 40 mg PO BID 05/04/19 [History] ARIPiprazole [Abilify Mycite] 5 mg PO DAILY 04/08/23 [History] Metoprolol Succinate 25 mg PO DAILY 04/08/23 [History] Famotidine [Pepcid] 40 mg PO DAILY 04/09/23 [History] Naratriptan HCl 1 mg PO DAILY PRN PRN 04/09/23 [History] Potassium Chloride 20 meq PO DAILY 04/09/23 [History] Albuterol 8 gm Mdi Hfa [Ventolin Hfa MDI] 2 puffs IH BID 04/10/23 [History] Hx Tetanus, Diphtheria Vaccination/Date Given: Yes (less than three years ago) Hx Influenza Vaccination/Date Given: Yes Hx Pneumococcal Vaccination/Date Given: Yes Immunizations Up to Date: No Travel Risk - International Travel Have you traveled outside of the country in past 3 weeks: No - Emerging Infectious Disease Are you exhibiting symptoms associated with any current EIDs: Yes Symptoms: Cough: New Onset, Headaches/Body Aches/ - Review of Systems Constitutional: No Symptoms Ears, Nose, & Throat: Nose Congestion, Sinus Drainage, Throat Swelling Respiratory: Cough Cardiac: Chest Pain, Edema Abdominal/Gastrointestinal: No Symptoms Genitourinary Symptoms: No Symptoms Musculoskeletal: No Symptoms Skin: No Symptoms Neurological: No Symptoms Endocrine: No Symptoms Hematologic/Lymphatic: No Symptoms - Past Medical History Pertinent Past Medical History: Yes Neurological History: Migraines, Peripheral Neuropathy ENT History: No Pertinent History Cardiac History: High Cholesterol, Hypertension Respiratory History: Asthma Endocrine Medical History: No Pertinent History Musculoskeletal History: Arthritis, Rheumatoid Arthritis, Osteoporosis, Degenerative Disk Disease, Fibromyalgia GI Medical History: Irritable Bowel, GERD History: No Pertinent History Psycho-Social History: Depression Female Reproductive Disorders: Abnormal Uterine Bleeding Other Medical History: B THR (), B TKR (2016,2017), RA, GERD, MIGRAINES 1-2X MONTH, NEUROPATHY (B FEET & HANDS), NEUROLOGICAL COUGH,SCOLIOSIS, DEPRESSION, ANXIETY, FIBROSIS OF LUNG, MILD TRICUSPID VALVE REGURGITATION, MITRAL VALVE REGURGITATION, BROKEN R ANKLE REQUIRING 4 SURGERIES (80'S), BROKEN L ARM (CONSERVATIVE [place]), L CLAVICLE BREAK, BROKEN R ELBOW, BROKEN L WRIST. PT SEES 03/10/24. DR. BLAIR. APPENDENCTOMY, GALL BLADDER REMOVAL, 8 SPINE SURGERIES FOR SCOLOSIS WITH FUSION FROM NECK TO TAILBONE. - Past Surgical History Past Surgical History: Yes Cardiac: No Pertinent History Respiratory: No Pertinent History Gastrointestinal: Appendectomy, Cholecystectomy Genitourinary: No Pertinent History Musculoskeletal: Orthopedic Surgery Female Surgical History: Hysterectomy Other Surgical History: sinus, bilateral knee replacements, back surg, neck surg,. bilat hip - Social History Smoking Status: Never smoker Exposure to second hand smoke: Yes (vaping) Drug Use: none Patient Lives Alone: No - Social Determinants of Health Will the patient participate in the screening: Declined to provide - Physical Exam General Appearance: no apparent distress, alert Eye Exam: PERRL/EOMI Ears, Nose, Throat Exam: normal ENT inspection Neck Exam: normal inspection, non-tender, supple, full range of motion Respiratory Exam: normal breath sounds, lungs clear Cardiovascular Exam: regular rate/rhythm, normal heart sounds Gastrointestinal/Abdomen Exam: soft, normal bowel sounds, No tenderness Back Exam: normal inspection Extremity Exam: normal inspection, normal range of motion Neurologic Exam: alert, oriented x 3, cooperative, software design engineer II-XII nml as tested Skin Exam: normal color SpO2 Interpretation: normal SpO2: 97 O2 Delivery: Room Air - Progress Progress Note: 12/10/24 19:23 64-year-old is evaluated in the ER for chest pain. The EKG did not show any acute ST elevation. Normal white count and fairly unremarkable chemistries including initial troponin and D-dimer. She has UTI and given Keflex. Chest x-ray is negative for any acute cardiopulmonary findings. Discussed with patient about observation admission which she initially agreed but does not want to stay on later evaluation. Will obtain second troponin, care is transferred to Dr. Carlson at end of my shift for reevaluation and final disposition. - Departure Clinical Impression: Chest pain, UTI (urinary tract infection), ACS (acute coronary syndrome) Condition: Stable Critical Care Time: No Referrals: BARBARA PAGE, PLANT OPERATOR CONTROL ROOM OPERATOR [Primary Care Provider] - Follow up/PCP as directed Additional Instructions: Discharge/Care Plan DOTTIEDONIS GERMAIN was seen on 12/10/24 in the Emergency Room. The patient was counseled regarding Diagnosis,Lab results, Imaging studies, need for follow up and when to return to the Emergency Room. Prescriptions given: Discharge Note I have spoken with the patient and/or caregivers. I have explained the patient's condition, diagnosis and treatment plan based on the information available to me at this time. I have answered the patient's and/or caregiver's questions and addressed any concerns. The patient and/or caregivers have as good understanding of the patient's diagnosis, condition and treatment plan as can be expected at this point. The vital signs have been stable. The patient's condition is stable and appropriate for discharge from the emergency department. The patient will pursue further outpatient evaluation with the primary care physician or other designated or consulting physician as outlined in the discharge instructions. The patient and/or caregivers are agreeable to this plan of care and follow-up instructions have been explained in detail. The patient and/or caregivers have received these instruction. The patient/and or caregivers are aware that any significant change in condition or worsening of symptoms should prompt an immediate return to this or the closest emergency department or call 911. <MARY CARLSON - Last Filed: 12/10/24 20:45> - History of Present Illness Aspirin Treatment Today: no aspirin today - Nursing Vital Signs Nursing Vital Signs: Initial Vital Signs Temperature 97.6 F 12/10/24 15:11 Pulse Rate 75 12/10/24 15:11 Respiratory Rate 20 12/10/24 15:11 Blood Pressure 128/93 12/10/24 15:11 O2 Sat by Pulse Oximetry 99 12/10/24 15:11 Pain Scale Pain Intensity 0 Ordered Tests: Active Orders 24 hr Category Date Time Status Sales Planning Analyst STAT Care 12/10/24 15:53 Active EKG-ER Only STAT Care 12/10/24 15:52 Active IV Insertion STAT Care 12/10/24 15:52 Active CHEST 1 VIEW (PORTABLE) Stat Exams 12/10/24 15:52 Completed CBC W DIFF Stat Lab 12/10/24 16:20 Completed CMP Stat Lab 12/10/24 16:20 Completed CULTURE,URINE Stat Lab 12/10/24 16:34 Received D-DIMER QUANTITATIVE Stat Lab 12/10/24 16:43 Completed Lactic Acid Stat Lab 12/10/24 16:43 Completed MAGNESIUM Stat Lab 12/10/24 16:20 Completed NT PRO BNPII Stat Lab 12/10/24 16:20 Completed TROPONIN Q4H Lab 12/10/24 16:20 Completed TROPONIN Q4H Lab 12/10/24 19:53 Completed TROPONIN Q4H Lab 12/11/24 00:00 Ordered UA W/RFX UR CULTURE Stat Lab 12/10/24 16:34 Completed Respiratory Therapy Assessment DAILY RT 12/10/24 16:41 Active Medication Summary Discontinued Medications Generic Name Dose Route Start Last Admin Trade Name Toniq PRN Reason Stop Dose Admin Albuterol/Ipratropium 3 ml 12/10/24 15:52 12/10/24 16:42 Ipratropium/Albuterol Sulfate 3 Ml Ampul.Neb IH 12/10/24 15:53 3 ml STAT ONE Administration Albuterol/Ipratropium Confirm 12/10/24 16:35 Ipratropium/Albuterol Sulfate 3 Ml Ampul.Neb Administered 12/10/24 16:36 Dose 3 ml IH .STK-MED ONE Aspirin 324 mg 12/10/24 18:54 12/10/24 18:57 Aspirin 81 Mg Tab.Chew PO 12/10/24 18:55 324 mg STAT ONE Administration Aspirin Confirm 12/10/24 18:56 Aspirin 81 Mg Tab.Chew Administered 12/10/24 18:57 Dose 324 mg .ROUTE .STK-MED ONE Cephalexin HCl 500 mg 12/10/24 18:44 12/10/24 18:57 Cephalexin Mh500 Mg Capsule PO 12/10/24 18:45 500 mg STAT ONE Administration Cephalexin HCl Confirm 12/10/24 18:56 Cephalexin Mh500 Mg Capsule Administered 12/10/24 18:57 Dose 500 mg .ROUTE .STK-MED ONE Lab/Rad Data: Laboratory Result Diagrams 12/10/24 16:20 12/10/24 16:20 Laboratory Results 12/10/24 12/10/24 12/10/24 Range/Units 19:53 16:43 16:43 WBC (3.98-10.04) x10^3/uL RBC (3.93-5.22) x10^6/uL Hgb (11.2-15.7) g/dL Hct (34.1-44.9) % MCV (79.4-94.8) fL MCH (25.6-32.2) pg MCHC (32.2-35.5) g/dL RDW (11.7-14.4) % Plt Count (182-369) x10^3/uL MPV (9.4-12.3) fL Gran % (34.0-71.1) % Immature Gran % (Auto) (0.001-0.429) % Nucleat RBC Rel Count (0.00-0.2) % Eos # (Auto) (0.04-0.36) x10^3/uL Immature Gran # (Auto) (0.001-0.031) x10^3u/L Absolute Lymphs (auto) (1.18-3.74) x10^3/uL Absolute Monos (auto) (0.24-0.86) x10^3/uL Absolute Nucleated RBC (0.00-0.012) x10^3u/L Lymphocytes % (19.3-51.7) % Monocytes % (4.7-12.5) % Eosinophils % (0.7-5.8) % Basophils % (0.1-1.2) % Absolute Granulocytes (1.56-6.13) x10^3/uL Basophils # (0.01-0.08) x10^3/uL D-Dimer 0.25 (0.0-0.50) mg/L Sodium (135-145) mmol/L Potassium (3.5-5.1) mmol/L Chloride (98-107) mmol/L Carbon Dioxide (22-30) mmol/L Anion Gap (5-15) MEQ/L BUN (7-17) mg/dL Creatinine (0.52-1.04) mg/dL Estimated GFR ML/MIN Glucose (74-106) mg/dL Lactic Acid 0.9 (0.4-2.0) Calcium (8.4-10.2) mg/dL Magnesium (1.6-2.3) mg/dL Total Bilirubin (0.2-1.3) mg/dL AST (14-36) U/L ALT (0-35) U/L Alkaline Phosphatase (38-126) U/L Troponin I < 0.012 (0.000-0.033) ng/mL NT-Pro-B Natriuret Pep (<300) pg/mL Serum Total Protein (6.3-8.2) g/dL Albumin (3.5-5.0) g/dL Urine Color (Yellow) Urine Appearance (Clear) Urine pH (4.6-8.0) Ur Specific [place] (1.005-1.030) Urine Protein (Negative) Urine Glucose (UA) (Negative) mg/dL Urine Ketones (Negative) Urine Blood (Negative) Urine Nitrite (Negative) Urine Bilirubin (Negative) Urine Urobilinogen (0.2) mg/dL Ur Leukocyte Esterase (Negative) U Hyaline Cast (Auto) (0-2) /LPF Urine Microscopic RBC (0-5) /HPF Urine Microscopic WBC (0-5) /HPF Ur Epithelial Cells (None Seen) /HPF Urine Bacteria (None Seen) /HPF Urine Culture Reflexed (NO) Influenza Type A Ag (NEGATIVE) Influenza Type B Ag (NEGATIVE) RSV (PCR) (NEGATIVE) SARS-CoV-2 (PCR) (NEGATIVE) 12/10/24 12/10/24 12/10/24 Range/Units 16:34 16:20 16:20 WBC (3.98-10.04) x10^3/uL RBC (3.93-5.22) x10^6/uL Hgb (11.2-15.7) g/dL Hct (34.1-44.9) % MCV (79.4-94.8) fL MCH (25.6-32.2) pg MCHC (32.2-35.5) g/dL RDW (11.7-14.4) % Plt Count (182-369) x10^3/uL MPV (9.4-12.3) fL Gran % (34.0-71.1) % Immature Gran % (Auto) (0.001-0.429) % Nucleat RBC Rel Count (0.00-0.2) % Eos # (Auto) (0.04-0.36) x10^3/uL Immature Gran # (Auto) (0.001-0.031) x10^3u/L Absolute Lymphs (auto) (1.18-3.74) x10^3/uL Absolute Monos (auto) (0.24-0.86) x10^3/uL Absolute Nucleated RBC (0.00-0.012) x10^3u/L Lymphocytes % (19.3-51.7) % Monocytes % (4.7-12.5) % Eosinophils % (0.7-5.8) % Basophils % (0.1-1.2) % Absolute Granulocytes (1.56-6.13) x10^3/uL Basophils # (0.01-0.08) x10^3/uL D-Dimer (0.0-0.50) mg/L Sodium (135-145) mmol/L Potassium (3.5-5.1) mmol/L Chloride (98-107) mmol/L Carbon Dioxide (22-30) mmol/L Anion Gap (5-15) MEQ/L BUN (7-17) mg/dL Creatinine (0.52-1.04) mg/dL Estimated GFR ML/MIN Glucose (74-106) mg/dL Lactic Acid (0.4-2.0) Calcium (8.4-10.2) mg/dL Magnesium (1.6-2.3) mg/dL Total Bilirubin (0.2-1.3) mg/dL AST (14-36) U/L ALT (0-35) U/L Alkaline Phosphatase (38-126) U/L Troponin I < 0.012 (0.000-0.033) ng/mL NT-Pro-B Natriuret Pep (<300) pg/mL Serum Total Protein (6.3-8.2) g/dL Albumin (3.5-5.0) g/dL Urine Color Yellow (Yellow) Urine Appearance Clear (Clear) Urine pH 7.5 (4.6-8.0) Ur Specific [place] 1.020 (1.005-1.030) Urine Protein Negative (Negative) Urine Glucose (UA) Negative (Negative) mg/dL Urine Ketones Negative (Negative) Urine Blood Negative (Negative) Urine Nitrite Negative (Negative) Urine Bilirubin Negative (Negative) Urine Urobilinogen 0.2 (0.2) mg/dL Ur Leukocyte Esterase Moderate A (Negative) U Hyaline Cast (Auto) NONE SEEN (0-2) /LPF Urine Microscopic RBC 0-2 (0-5) /HPF Urine Microscopic WBC 11-20 A (0-5) /HPF Ur Epithelial Cells None Seen (None Seen) /HPF Urine Bacteria None Seen (None Seen) /HPF Urine Culture Reflexed YES (NO) Influenza Type A Ag NEGATIVE (NEGATIVE) Influenza Type B Ag NEGATIVE (NEGATIVE) RSV (PCR) NEGATIVE (NEGATIVE) SARS-CoV-2 (PCR) NEGATIVE (NEGATIVE) 12/10/24 12/10/24 Range/Units 16:20 16:20 WBC 5.4 (3.98-10.04) x10^3/uL RBC 4.26 (3.93-5.22) x10^6/uL Hgb 10.1 L (11.2-15.7) g/dL Hct 33.5 L (34.1-44.9) % MCV 78.6 L (79.4-94.8) fL MCH 23.7 L (25.6-32.2) pg MCHC 30.1 L (32.2-35.5) g/dL RDW 14.9 H (11.7-14.4) % Plt Count 162 L (182-369) x10^3/uL MPV 9.8 (9.4-12.3) fL Gran % 68.5 (34.0-71.1) % Immature Gran % (Auto) 0.2 (0.001-0.429) % Nucleat RBC Rel Count 0.0 (0.00-0.2) % Eos # (Auto) 0.13 (0.04-0.36) x10^3/uL Immature Gran # (Auto) 0.01 (0.001-0.031) x10^3u/L Absolute Lymphs (auto) 1.25 (1.18-3.74) x10^3/uL Absolute Monos (auto) 0.30 (0.24-0.86) x10^3/uL Absolute Nucleated RBC 0.00 (0.00-0.012) x10^3u/L Lymphocytes % 23.0 (19.3-51.7) % Monocytes % 5.5 (4.7-12.5) % Eosinophils % 2.4 (0.7-5.8) % Basophils % 0.4 (0.1-1.2) % Absolute Granulocytes 3.73 (1.56-6.13) x10^3/uL Basophils # 0.02 (0.01-0.08) x10^3/uL D-Dimer (0.0-0.50) mg/L Sodium 138 (135-145) mmol/L Potassium 4.0 (3.5-5.1) mmol/L Chloride 105 (98-107) mmol/L Carbon Dioxide 25 (22-30) mmol/L Anion Gap 11.4 (5-15) MEQ/L BUN 13 (7-17) mg/dL Creatinine 0.61 (0.52-1.04) mg/dL Estimated GFR 99.8 ML/MIN Glucose 109 H (74-106) mg/dL Lactic Acid (0.4-2.0) Calcium 9.6 (8.4-10.2) mg/dL Magnesium 2.0 (1.6-2.3) mg/dL Total Bilirubin 0.50 (0.2-1.3) mg/dL AST 33 (14-36) U/L ALT 20 (0-35) U/L Alkaline Phosphatase 79 (38-126) U/L Troponin I (0.000-0.033) ng/mL NT-Pro-B Natriuret Pep 400 (<300) pg/mL Serum Total Protein 6.4 (6.3-8.2) g/dL Albumin 4.0 (3.5-5.0) g/dL Urine Color (Yellow) Urine Appearance (Clear) Urine pH (4.6-8.0) Ur Specific [place] (1.005-1.030) Urine Protein (Negative) Urine Glucose (UA) (Negative) mg/dL Urine Ketones (Negative) Urine Blood (Negative) Urine Nitrite (Negative) Urine Bilirubin (Negative) Urine Urobilinogen (0.2) mg/dL Ur Leukocyte Esterase (Negative) U Hyaline Cast (Auto) (0-2) /LPF Urine Microscopic RBC (0-5) /HPF Urine Microscopic WBC (0-5) /HPF Ur Epithelial Cells (None Seen) /HPF Urine Bacteria (None Seen) /HPF Urine Culture Reflexed (NO) Influenza Type A Ag (NEGATIVE) Influenza Type B Ag (NEGATIVE) RSV (PCR) (NEGATIVE) SARS-CoV-2 (PCR) (NEGATIVE) - Progress Air Movement: good Progress Note: Patient endorsed to Dr. Carlson at approximately 7 PM change of shift. Troponin 2 pending. Troponin 2 negative as well as the initial troponin. D-dimer negative . However patient reassessed. She continues to experience ongoing pain. Patient has pre-existing cardiac condition including "leaky valves" patient sees [place] info specialist. Chest x-ray reveals a borderline enlarged heart. Patient's heart score is 4. In light of patient's heart score and ongoing chest pain we advised hospitalization for further evaluation and treatment. Patient however declined. She states she will follow-up with her info specialist tomorrow. Patient will leave AGAINST MEDICAL ADVICE. Patient is of sound mind. Patient is appropriate to make informed and independent medical decisions. Patient understands that leaving AGAINST MEDICAL ADVICE can result in delayed diagnosis, increased risk of morbidity, mortality, short and long-term disability including . In spite of these risks, patient has decided to leave AGAINST MEDICAL ADVICE. Patient understands that she may return to our ED at any point if she reconsiders. Patient agrees to follow-up with her primary care doctor within 48 hours for reevaluation. Patient voices no other complaints or concerns at this time. We will release patient AGAINST MEDICAL ADVICE per their request. Portions of this note were created with voice recognition technology. There may be grammatical, spelling, punctuation or sound alike errors Complexity of problem addressed is moderate acute complicated. No critical care time. Complex of data reviewed and analyzed is extensive. Test ordered test reviewed results analyzed and correlated clinically with history and physical exam. Risk of complication and or risk of morbidity/mortality of patient management is high. Patient requires hospitalization but is leaving AGAINST MEDICAL ADVICE. Vital stable. Time spent to discharge patient AMA is approximately 15 minutes. Plan of care established for shared decision making. No social determinants of health present to impede follow-up. Portions of this note were created with voice recognition technology. There may be grammatical, spelling, punctuation or sound alike errors Blood Culture(s) Obtained: No Antibiotics given: No Counseled pt/family regarding: lab results, diagnosis, need for follow-up, rad results - Departure Departure Disposition: AMA
[2024-12-10 16:57] LABS: ANION GAP 11.4 MEQ/L (5-15); BILIRUBIN,TOTAL 0.5 mg/dL (0.2-1.3); Calcium 9.6 mg/dL (8.4-10.2); Creatinine 1 0.61 mg/dL (0.52-1.04); EST GLOMERULAR FILTRATION RATE 99.8 ML/MIN; Total Protein 6.4 g/dL (6.3-8.2)
[2024-12-10 17:04] LABS: INFLUENZA A NEGATIVE (NEGATIVE); INFLUENZA B NEGATIVE (NEGATIVE); RESPIRATORY SYNCTIAL VIRUS NEGATIVE (NEGATIVE); SARS-CoV-2 Xpert Express NEGATIVE (NEGATIVE)
[2024-12-10 17:30] LABS: Appearance Clear (Clear); Bacteria None Seen /HPF (None Seen); Bilirubin Negative (Negative); Blood Negative (Negative); Epithelial Cells None Seen /HPF (None Seen); Glucose, Urine Negative (Negative); Hyaline Casts NONE SEEN /LPF (0-2); Ketones Negative (Negative); Leukocyte Esterase Moderate (Negative); Nitrite Negative (Negative); Ph 7.5 (4.6-8.0); Protein,Urine Dip Negative (Negative); RBC 0-2 /HPF (0-5); Urobilinogen 0.2 mg/dL (0.2)
[2024-12-10] MEDS ORDERED: BABY ASPIRIN 81 MG CHEW ONE (18:56)
[2024-12-10] MEDS ORDERED: KEFLEX 500 MG ONE (18:56)
[2024-12-10] MEDS: KEFLEX 500 MG PO ONE (18:57)
[2024-12-10] MEDS: BABY ASPIRIN 81 MG CHEW PO ONE (18:57)
[2024-12-10 19:41] VITALS: RESP 16; O2SAT 99
[2024-12-10 20:10] VITALS: BP 102/84; PULSE 71
== END 2024-12-10 20:51 | disposition left against medical advice (07) ==
LOC: ED 15:10
DX: I24.9 Acute ischemic heart disease, unspecified (principal); R07.9 Chest pain, unspecified; N39.0 Urinary tract infection, site not specified; M79.89 Other specified soft tissue disorders; J02.9 Acute pharyngitis, unspecified; R51.9 Headache, unspecified; R05.1 Acute cough; E78.5 Hyperlipidemia, unspecified; I10 Essential (primary) hypertension; Z79.899 Other long term (current) drug therapy
CPT/HCPCS: 0241U; 36415; 71045; 80053; 81001; 83605; 83735; 83880; 84484; 85025; 85379; 87086; 93005; 93041; 94640; 99285; 99284; A9270-GY

== ENCOUNTER 2025-07-14 20:50 | Emergency (ER) | payer MEDICARE, OTHER ==
[2025-07-14 21:05] VITALS: RESP 14; TEMP 98.2; O2SAT 100
--- NOTE | 2025-07-14 22:00 | ERPHSYRPT ---
- History of Present Illness Time Seen by Provider: 07/14/25 21:54 Source: patient Exam Limitations: no limitations Patient Subjective Stated Complaint: pt states she rolled over a stick and fell on her hand Triage Nursing Assessment: pt ambulated into the er; pt is axo x3; c/o rt hand injury; pt states 7/10 pain to rt hand/ wrist; strong rt radial pulse; swelling present to rt hand and rt wrist; decreased ROM to rt wrist and hand; good cap refill to rt hand; skin PDW; no respiratory distress present; hypertensive Physician History: 65-year-old female history of migraines peripheral neuropathy, hypertension, hyperlipidemia, asthma, arthritis presents to our ED for evaluation of right hand and wrist pain after a fall. Fall occurred just prior to arrival. Patient fell on her outstretched hand. Patient rates her pain 7 out of 10. The fall was mechanical and not associated with any neuro or cardiovascular symptomology. No associated chest pain or shortness of breath. No associated nausea vomiting or diaphoresis. No numbness tingling or weakness. No BHT or LOC. No neck pain. Cervical spine cleared clinically. No other injuries reported. Patient otherwise feels well. She voices no other complaints or concerns at this time. Portions of this note were created with voice recognition technology. There may be grammatical, spelling, punctuation or sound alike errors Occurred: just prior to arrival Method of Injury: fell Quality: constant Severity of Pain-Max: moderate Severity of Pain-Current: mild Extremities Pain Location: wrist: right, hand: right Modifying Factors: Improves With: movement Associated Symptoms: none Allergies/Adverse Reactions: celecoxib [From Celebrex] Allergy (Verified 07/14/25 20:56) pregabalin [From Lyrica] Allergy (Verified 07/14/25 20:56) vancomycin Allergy (Verified 07/14/25 20:56) hydrocodone [From Vicodin] Adverse Reaction (Verified 07/14/25 20:56) pt states able to take hydrocodone alone, just not able to take norco/vicodin Home Medications: Atorvastatin Calcium [Lipitor] 40 mg PO HS 09/13/17 [History] Ergocalciferol (Vitamin D2) [Vitamin D] 4,000 mg PO DAILY 09/13/17 [History] Furosemide 20 mg [Lasix 20 mg] 40 mg PO DAILY PRN PRN 09/13/17 [History] Trazodone HCl 50 mg [Desyrel 50 mg] 200 mg PO HS 09/13/17 [History] Colestipol HCl [Colestid] 2 gm PO BID 05/04/19 [History] Fluoxetine HCl 40 mg PO BID 05/04/19 [History] ARIPiprazole [Abilify Mycite] 5 mg PO DAILY 04/08/23 [History] Metoprolol Succinate 25 mg PO DAILY 04/08/23 [History] Famotidine [Pepcid] 40 mg PO DAILY 04/09/23 [History] Naratriptan HCl 1 mg PO DAILY PRN PRN 04/09/23 [History] Potassium Chloride 20 meq PO DAILY 04/09/23 [History] Albuterol 8 gm Mdi Hfa [Ventolin Hfa MDI] 2 puffs IH BID 04/10/23 [History] Hx Tetanus, Diphtheria Vaccination/Date Given: Yes Hx Influenza Vaccination/Date Given: Yes Hx Pneumococcal Vaccination/Date Given: Yes Travel Risk - International Travel Have you traveled outside of the country in past 3 weeks: No - Emerging Infectious Disease Are you exhibiting symptoms associated with any current EIDs: No Symptoms: Cough: New Onset, Headaches/Body Aches/ - Review of Systems All Other Systems: Reviewed and Negative - Past Medical History Pertinent Past Medical History: Yes Neurological History: Migraines, Peripheral Neuropathy ENT History: No Pertinent History Cardiac History: High Cholesterol, Hypertension Respiratory History: Asthma Endocrine Medical History: No Pertinent History Musculoskeletal History: Arthritis, Rheumatoid Arthritis, Osteoporosis, Degenerative Disk Disease, Fibromyalgia GI Medical History: Irritable Bowel, GERD History: No Pertinent History Psycho-Social History: Depression Female Reproductive Disorders: Abnormal Uterine Bleeding Other Medical History: B THR (), B TKR (2016,2017), RA, GERD, MIGRAINES 1-2X MONTH, NEUROPATHY (B FEET & HANDS), NEUROLOGICAL COUGH,SCOLIOSIS, DEPRESSION, ANXIETY, FIBROSIS OF LUNG, MILD TRICUSPID VALVE REGURGITATION, MITRAL VALVE REGURGITATION, BROKEN R ANKLE REQUIRING 4 SURGERIES (80'S), BROKEN L ARM ([place]), L CLAVICLE BREAK, BROKEN R ELBOW, BROKEN L WRIST. PT SEES 03/10/24. DR. BLAIR. APPENDENCTOMY, GALL BLADDER REMOVAL, 8 SPINE SURGERIES FOR SCOLOSIS WITH FUSION FROM NECK TO TAILBONE. - Past Surgical History Past Surgical History: Yes Cardiac: No Pertinent History Respiratory: No Pertinent History Gastrointestinal: Appendectomy, Cholecystectomy Genitourinary: No Pertinent History Musculoskeletal: Orthopedic Surgery Female Surgical History: Hysterectomy Other Surgical History: sinus, bilateral knee replacements, back surg, neck surg,. bilat hip - Social History Smoking Status: Never smoker Exposure to second hand smoke: Yes (vaping) Drug Use: none - Social Determinants of Health Will the patient participate in the screening: Declined to provide - Nursing Vital Signs Nursing Vital Signs: Initial Vital Signs Temperature 98.2 F 07/14/25 20:56 Pulse Rate 72 07/14/25 20:56 Respiratory Rate 14 07/14/25 20:56 Blood Pressure 149/75 07/14/25 20:56 O2 Sat by Pulse Oximetry 100 07/14/25 20:56 Pain Scale Pain Intensity 7 - Physical Exam General Appearance: alert Eyes, Ears, Nose, Throat Exam: moist mucous membranes Neck Exam: non-tender, supple Cardiovascular/Respiratory Exam: chest non-tender, normal breath sounds, regular rate/rhythm, no respiratory distress Abdominal Exam: non-tender, soft, No guarding Back Exam: normal inspection, No vertebral tenderness Shoulder Exam: normal inspection, non-tender, no evidence of injury, normal ROM Elbow/Forearm Exam: normal inspection, non-tender, no evidence of injury, normal ROM Wrist Exam: limited ROM, swelling Hand Exam: limited ROM, swelling (The involved extremities neurovasc intact distally compartments are soft cap refill less than 2 seconds. No open or draining lesions.) Neuro/Tendon Exam: normal sensation, normal motor functions Mental Status Exam: alert, oriented x 3, cooperative Skin Exam: normal color, warm, dry SpO2 Interpretation: normal SpO2: 100 O2 Delivery: Room Air - Course Nursing assessment & vital signs reviewed: Yes - Radiology Exams Wrist X-ray Interpretation: Interpreted by me (Distal radius fracture) Hand X-ray Interpretation: Interpreted by me (Distal radius fracture) Ordered Tests: Active Orders 24 hr Category Date Time Status HAND (MINIMUM 3 VIEWS) Stat Exams 07/14/25 21:02 Taken WRIST (MIN 3 VIEWS) Stat Exams 07/14/25 21:02 Taken - Progress Progress: improved Progress Note: 65-year-old female history of migraines peripheral neuropathy, hypertension, hyperlipidemia, asthma, arthritis presents to our ED for evaluation of right hand and wrist pain after a fall. Physical exam reveals swelling and tenderness at the lateral aspect of the right wrist. X-ray revealed a distal radius fracture. The involved extremity is otherwise neurovasc intact distally compar tments are soft cap refill less than 2 seconds. Overlying soft tissue intact. Patient received a gram of acetaminophen for pain. Patient appears to be resting comfortably and denies active pain unless she is moving her involved wrist. Patient referred to the orthopedic clinic for follow-up. Patient placed in a sugar-tong splint and a right upper extremity sling. Patient neurovascular intact distally post splint and sling application. Patient agrees to follow-up in the orthopedic clinic as planned. She voices no other complaints or concerns at this time. History obtained from patient. No other injuries reported post fall. Differential diagnosis includes wrist fracture, distal radius fracture, ligamentous injury, tendon injury Portions of this note were created with voice recognition technology. There may be grammatical, spelling, punctuation or sound alike errors Complexity of problems addressed is moderate acute complicated. No critical care time. Complex of data reviewed and analyzed as moderate. Test ordered test reviewed results analyzed and correlated clinically with history and physical exam. Dr. Carlson independently reviewed and interpreted the x-ray of the right hand and right wrist. Risk of complication and or risk of morbidity/mortality of patient management is high. Prescription for tramadol forwarded to patient's pharmacy. Vital stable. Time spent to discharge patient is approximately 15 minutes. Plan of care established for shared decision making. No social determinants of health present to impede follow-up. Portions of this note were created with voice recognition technology. There may be grammatical, spelling, punctuation or sound alike errors 07/14/25 22:08 Counseled pt/family regarding: diagnosis, need for follow-up, rad results - Departure Departure Disposition: Home Clinical Impression: Fall, Distal radius fracture, right Condition: Stable Critical Care Time: No Referrals: BARBARA PAGE NP [Primary Care Provider, [facility]] - Follow up/ PCP as directed Prescriptions: Tramadol HCl 50 mg [Ultram 50 mg] 50 mg PO TID PRN 5 Days #15 tablet MDD 3 PRN Reason: Pain Outpatient Orders: Ortho Referral Time Frame: 1 Day, Facility: [facility], Location: ORTHO CLINIC
[2025-07-14 22:13] VITALS: BP 154/46; PULSE 74
--- NOTE | 2025-07-15 08:59 | XRAY ---
Indication: Pain following fall. Comparison: None 3 view right wrist demonstrates minimally displaced comminuted fracture distal radius with intra-articular extension and soft tissue swelling. Elsewhere osteopenia, radiocarpal degenerative joint space narrowing, faint ulnar carpal degenerative chondrocalcinosis, and moderate/advanced 1st metacarpal multangular scaphoid degenerative changes.
--- NOTE | 2025-07-15 09:01 | XRAY ---
Indication: Pain following fall. Comparison: None 3 view right hand demonstrates minimally displaced comminuted fracture distal radius with intra-articular extension and soft tissue swelling. Elsewhere osteopenia, radiocarpal degenerative joint space narrowing, faint ulnar carpal degenerative chondrocalcinosis, moderate/advanced 1st metacarpal multangular scaphoid degenerative changes, mild/moderate degenerative changes all IP joints, and old 5th metacarpal fracture.
== END 2025-07-14 22:23 | disposition home or self-care (01) ==
LOC: ED 20:50
DX: S52.571A Other intraarticular fracture of lower end of right radius, initial encounter for closed fracture (principal); W01.0XXA Fall on same level from slipping, tripping and stumbling without subsequent striking against object, initial encounter; I10 Essential (primary) hypertension; Z79.899 Other long term (current) drug therapy